=== PATIENT | male | born 1945 | race Caucasian/White ===

== ENCOUNTER 2016-11-08 11:39 | Inpatient (IN) ==
[2016-11-08 12:40] LABS: Basophils % 0.2 %; Hematocrit 30.2 % (37.5-50.1); Hemoglobin 9.1 g/dL (12.9-16.9); Immature Granulocytes % 3.8 % (0-4); Lymphocytes # 0.4 K/mcL (0.6-4.6); Lymphocytes % 3.3 %; Mean Corpuscular HGB Conc 30.1 g/dL (31.6-35.5); Mean Corpuscular Hemoglobin 30.4 pg (28.0-33.3); Mean Platelet Volume 11.5 fL (9.4-12.4); Monocytes # 0.6 K/mcL (0.0-1.3); Monocytes % 4.6 %; Neutrophils # 11.4 K/mcL (1.6-8.9); Platelet Count 120 K/mcL (140-400); Red Blood Count 2.99 M/mcL (4.19-5.50); Red Cell Distribution Width 16.2 % (11.5-14.5); Segmented Neutrophils % 88.1 %
[2016-11-08] MEDS ORDERED: Lidocaine -MPF 1% 2 ML VIAL ID PRN (12:41)
[2016-11-08 12:44] LABS: Prothrombin Time 11.2 Seconds (9.4-12.1)
[2016-11-08 12:47] LABS: Activated Partial Thrombo Time 25.4 Seconds (26.0-36.0)
[2016-11-08 12:52] LABS: Calcium 8.7 mg/dL (8.6-10.8)
[2016-11-08 13:02] LABS: Potassium 7.1 mEq/L (3.5-4.5)
[2016-11-08] MEDS ORDERED: Calcium Gluconate 1,000 MG in D5% in Water 100 ML IVPB ONE ×2 (13:02→14:31)
[2016-11-08] MEDS ORDERED: Sodium Bicarbonate 50 MEQ/50 ML VIAL IVP ONE ×2 (13:02→15:55)
[2016-11-08] MEDS ORDERED: Insulin Regular, Human 100 UNIT/ML SQ ONE (13:03)
[2016-11-08] MEDS ORDERED: Albuterol 2.5 MG/3 ML NEBULIZER IH ONE ×2 (13:03→14:30)
[2016-11-08] MEDS ORDERED: *HR* Dextrose 50 % in Water (Syg) 50 ML SYRINGE IVP ONE ×2 (13:04→22:05)
--- NOTE | 2016-11-08 13:26 | Emergency Department Note ---
Disposition Clinical Impression: Hyperkalemia, Hypercapnic respiratory failure, chronic Angioedema Qualifiers: Encounter type: initial encounter Qualified Code(s): T78.3XXA - Angioneurotic edema, initial encounter Disposition: Admitted As Inpatient Condition: Critical Time of Disposition: 18:28 General Adult HPI - General Chief complaint: ED Shortness of Breath/Dyspnea Stated complaint: Angioedema Time Seen by Provider: 11/08/16 11:59 Source: EMS Nursing Notes Reviewed: Yes Vital Signs Reviewed: Yes - History of Present Illness HPI Narrative: Patient sent from the [place] for new onset angioedema this morning. He is brought in emergently by EMS. He is on a nonrebreather at 15 L and satting 100%. He is arousable. He has periorbital edema as well as edema to his face and eyes. I do not appreciate any swelling to his tongue. His oropharynx is open. You can appreciate the posterior oropharynx. If there is any swelling in his minor. His mallenpati score is poor. Body habitus is poor. Pain Scale: 0 - Related Data Home Medications Medication Instructions Recorded Confirmed Alendronate Sodium [Fosamax] 70 mg PO QWEEK 11/08/16 11/08/16 Budesonide/Formoterol 160/4.5 2 puff IH BIDR 11/08/16 11/08/16 [Symbicort 160/4.5] Chlorhexidine Gluconate [Peridex] 15 ml MM BID 11/08/16 11/08/16 Ergocalciferol (VITAMIN D2) 50,000 unit PO TH 11/08/16 11/08/16 [Vitamin D2] Folic Acid 1 mg PO DAILY 11/08/16 11/08/16 Guaifenesin [Mucus Relief] 400 mg PO BID 11/08/16 11/08/16 Insulin Glargine [Lantus] 12 unit SQ 1200 11/08/16 11/08/16 Insulin Human Regular [HumuLIN R] 2 - 15 unit SQ PRN PRN 11/08/16 11/08/16 Ipratropium/Albuterol Neb [Duoneb] 3 ml IH Q2H PRN 11/08/16 11/08/16 Ipratropium/Albuterol Neb [Duoneb] 3 ml IH Q4HR 11/08/16 11/08/16 LevETIRAcetam [Keppra] 500 mg PO DAILY 11/08/16 11/08/16 Ranitidine HCl [Zantac] 150 mg PO DAILY 11/08/16 11/08/16 Simvastatin [Zocor] 40 mg PO HS 11/08/16 11/08/16 Theophylline Anhydrous [Jesus-24] 100 mg PO DAILY 11/08/16 11/08/16 amLODIPine [Norvasc] 5 mg PO DAILY 11/08/16 11/08/16 hydrALAZINE [HydrALAZINE] 12.5 mg PO QID PRN 11/08/16 11/08/16 hydrALAZINE [HydrALAZINE] 25 mg PO Q6HR 11/08/16 11/08/16 levETIRAcetam [Keppra] 250 mg PO HS 11/08/16 11/08/16 predniSONE [PredniSONE] See Taper PO TAPER 11/08/16 11/08/16 Allergies Allergy/AdvReac Type Severity Reaction Status Date / Time carvedilol Allergy See Verified 11/08/16 11:50 Comments Limitations: ROS unobtainable due to patients medical condition Past Medical History - Past Medical History Medical history: Reports: arthritis, CHF, CVA, dementia, diabetes, GERD Psychiatric history: Reports: other - Social History Smoking Status: Current every day smoker Smokeless Tobacco Status: No Alcohol use: Reports: none Drug use: Reports: none Physical Exam - General Limitations: altered mental status (Patient is arousable but pleasantly demented.) General appearance: alert, in distress (He has rales throughout but is protecting his airway. He does have edema about his face.) - Head Head exam: atraumatic - Eye Eye exam: Present: periorbital swelling (Significant), other (Perioral swelling that is significant. Facial swelling.) - ENT ENT exam: normal oropharynx (Oropharynx is without significant edema. There is no tongue swelling. There is mild to no swelling of the posterior oropharynx. I think that this is the patient's normal oropharynx size. His body habitus appears to have a large neck.), mucous membranes moist - Neck Neck exam: Present: normal inspection, full ROM. Absent: meningismus, lymphadenopathy - Chest Chest inspection: Present: normal inspection, symmetric chest wall rise. Absent : tenderness - Respiratory Respiratory exam: Present: other (Rales throughout). Absent: respiratory distress - Cardiovascular Cardiovascular exam: Present: regular rate, normal rhythm, normal heart sounds - Abdominal Exam Abdominal exam: Present: soft, other (Multiple areas of ecchymosis.). Absent: tenderness, distention, organomegaly - Extremities Exam Extremities exam: Present: normal inspection, full ROM. Absent: tenderness, pedal edema - Back Exam Back exam: Present: normal inspection - Neurological Exam Neurological exam: Present: alert - Skin Skin exam: Present: warm, dry, intact Course Course Narrative: Male patient brought from the [place] for angioedema. EMS brought him and he is on a nonrebreather satting 100% on 15 L. He does have some facial swelling however on inspection of his oropharynx there is some mild edema but does not appear occluded. I do not appreciate any swelling to his tongue. He does have swelling to his orbital area as well as bilateral facial region. His lips are swollen. He is moving air appropriately. There is no stridor. He does have rales bilaterally throughout his lung sounds. We have placed the patient on BiPAP. He tolerates this well. His oxygen saturation is 100% this time his mentation improved significantly. He is opening his eyes and looking around. We have had a difficult time starting an IV however we did get a power line placed. He Came with an IO in his left tibia. He was given epinephrine as well as Solu-Medrol prior to discharge from the [place]. Patient has a history of seizures as well as a craniotomy. He also has a history of dementia and a CVA. I am not sure what his normal baseline mental status is. He is ventricularly paced on the monitor at this time. His abdomen is soft with no masses noted on exam. Patient is maintaining his airway well on BiPAP. On reexamination he is alert to voice commands. He is looking around the room. He is able to answer yes or no questions. His chest x-ray is normal as is his soft tissue of neck. He is hyperkalemic. We have given patient calcium gluconate, insulin, D50, bicarbonate, albuterol. We will contact cardiology due to his increased troponin and nephrology due to his increased potassium. We will admit patient to the ICU. - Reevaluation(s) Reevaluation #1: His mentation is better. When questioned he is feeling better he shakes his head yes. He is speaking to the nurse. He is aware of his name where he is the month and year. The swelling has come down some from his face. He is hyperkalemic. We have ordered insulin glucose calcium gluconate was bicarbonate. We are also giving him an albuterol treatment. Respiratory states both of these ABGs were mixed. He was a hard stick for IVs as well as ABGs. We have spoke with nephrology while he is here as well as cardiology. Dr. Nieves states that she is on board with the patient and his hyperkalemia. It appears as if in his chart states that he was on carvedilol previously and this caused some hyperkalemia. He is not on this anymore. And he is still hyperkalemic. Patient was given Kayexalate rectally. Nephrology as well as cardiology is on board. We will admit the patient to the ICU. Time: 13:21 - Consultations Consultation #1: I spoke with Dr Russo. He is suggesting that we speak with nephrology. Time: 13:41 Consultation #2: I spoke with Dr. Nieves the concrete stone finishing supervisor. She is requesting a redraw of the potassium and to give the patient Kayexalate rectally. She states that she will see the patient in ICU. Time: 13:47 Consultation #3: I spoke with Dr Bear. He does not feel comfortable keeping the Pt here without ENT coverage. Time: 13:59 Additional Consultation(s): Dr Bear came down and assessed the Pt he is now agreeable to accepted the Pt to the hospital. After his further evaluation and a repeat blood gas, he is requesting the Pt to be intubated. Patient appears to be a difficult intubation especially due to the recent angioedema. I am concerned that if we introduce anything into his or her posterior oropharynx that he may swell again. His mallenpati score is 4. He has a large neck and small jaw. We have spoken with Dr. Lopez the anesthesiologist. He is agreeable to take the patient to the OR for a fiberoptic intubation. We have spoken with Dr. gomez to be on standby in case the patient needs to have a tracheostomy placed emergently. He is also agreeable to this. Patient is sent to the OR from the ER. He will then be admitted to the ICU. Vital Signs Temperature 97.6 F 11/08/16 11:40 Pulse Rate 84 11/08/16 11:40 Respiratory Rate 26 11/08/16 11:40 Blood Pressure 117/86 11/08/16 11:40 O2 Sat by Pulse Oximetry 99 11/08/16 11:40 Temperature 97.6 F 11/08/16 11:40 Pulse Rate 70 11/08/16 17:23 Respiratory Rate 28 11/08/16 18:18 Blood Pressure 163/77 11/08/16 18:18 O2 Sat by Pulse Oximetry 98 11/08/16 17:23 Oxygen Delivery Oxygen Delivery Bipap Medical Decision Making - Medical Records Medical records reviewed: Yes I reviewed the patient's medical records. - Lab Data Lab results reviewed: Yes I reviewed the patient's lab results. Result diagrams: 11/08/16 12:28 11/08/16 14:15 Lab Results 11/08/16 11/08/16 11/08/16 Range/Units 11:55 12:17 12:28 WBC 12.9 H (4.3-11.1) K/mcL RBC 2.99 L (4.19-5.50) M/mcL Hgb 9.1 L (12.9-16.9) g/dL Hct 30.2 L (37.5-50.1) % MCV 101.0 H (83.0-100.0) fL MCH 30.4 (28.0-33.3) pg MCHC 30.1 L (31.6-35.5) g/dL RDW 16.2 H (11.5-14.5) % Plt Count 120 L (140-400) K/mcL MPV 11.5 (9.4-12.4) fL Immature Gran % 3.8 (0-4) % Seg Neutrophils % 88.1 % Lymphocytes % 3.3 % Monocytes % 4.6 % Eosinophils % 0.0 % Basophils % 0.2 % Neutrophils # 11.4 H (1.6-8.9) K/mcL Lymphocytes # 0.4 L (0.6-4.6) K/mcL Monocytes # 0.6 (0.0-1.3) K/mcL Eosinophils # 0.0 (0.0-0.6) K/mcL Basophils # 0.0 (0.0-0.2) K/mcL PT (9.4-12.1) Seconds INR APTT (26.0-36.0) Seconds ABG pH (7.32-7.45) pH Units ABG pCO2 (35-45) mmHg ABG pO2 (85-104) mmHg ABG HCO3 (21-27) mEQ/L ABG Total CO2 (20-26) mEq/L ABG O2 Saturation (95-98) % ABG Base Excess (-2.0 to 3.0) mEq/L Blood Gas Modality Sodium (136-145) mEq/L Potassium (3.5-4.5) mEq/L Chloride (98-109) mEq/L Carbon Dioxide (19-29) mEq/L BUN (8-26) mg/dL Creatinine (0.72-1.25) mg/dL Est GFR ( Amer) (> 60) Est GFR (Non-Af Amer) (> 60) BUN/Creatinine Ratio (6-26) Glucose (70-99) mg/dL Calculated Osmolality (280-300) Lactic Acid (0.5-2.2) mmol/L Calcium (8.6-10.8) mg/dL Creatine Kinase (30-200) Units/L Troponin I (0-0.03) ng/mL B-Natriuretic Peptide (0-100) pg/mL Urine Color (Yellow) Urine Clarity (Clear) Urine pH (5.0-8.0) pH Units Ur Specific [place] (1.010-1.025) Urine Protein (Neg-Trace) mg/dL Urine Glucose (UA) (Normal) mg/dL Urine Ketones (Negative) mg/dL Urine Blood (Negative) Urine Nitrite (Negative) Urine Bilirubin (Negative) Urine Urobilinogen (Normal) mg/dL Ur Leukocyte Esterase (Negative) Urine Microscopic RBC (0-3) per hpf Urine Microscopic WBC (0-3) per hpf Ur Squamous Epith Cells (None-Few) per lpf Urine Bacteria (None-Few) per hpf Hyaline Casts (None-Few) per lpf Ur Culture Indicated? (NO) Specimen Rejected Contaminated Contaminated 11/08/16 11/08/16 11/08/16 Range/Units 12:28 12:28 12:28 WBC (4.3-11.1) K/mcL RBC (4.19-5.50) M/mcL Hgb (12.9-16.9) g/dL Hct (37.5-50.1) % MCV (83.0-100.0) fL MCH (28.0-33.3) pg MCHC (31.6-35.5) g/dL RDW (11.5-14.5) % Plt Count (140-400) K/mcL MPV (9.4-12.4) fL Immature Gran % (0-4) % Seg Neutrophils % % Lymphocytes % % Monocytes % % Eosinophils % % Basophils % % Neutrophils # (1.6-8.9) K/mcL Lymphocytes # (0.6-4.6) K/mcL Monocytes # (0.0-1.3) K/mcL Eosinophils # (0.0-0.6) K/mcL Basophils # (0.0-0.2) K/mcL PT (9.4-12.1) Seconds INR APTT (26.0-36.0) Seconds ABG pH (7.32-7.45) pH Units ABG pCO2 (35-45) mmHg ABG pO2 (85-104) mmHg ABG HCO3 (21-27) mEQ/L ABG Total CO2 (20-26) mEq/L ABG O2 Saturation (95-98) % ABG Base Excess (-2.0 to 3.0) mEq/L Blood Gas Modality Sodium 135 L (136-145) mEq/L Potassium 7.1 H* (3.5-4.5) mEq/L Chloride 101 (98-109) mEq/L Carbon Dioxide 25 (19-29) mEq/L BUN 82 H (8-26) mg/dL Creatinine 2.05 H (0.72-1.25) mg/dL Est GFR ( Amer) 39 L (> 60) Est GFR (Non-Af Amer) 32 L (> 60) BUN/Creatinine Ratio 40 H (6-26) Glucose 180 H (70-99) mg/dL Calculated Osmolality 309 H (280-300) Lactic Acid 0.9 (0.5-2.2) mmol/L Calcium 8.7 (8.6-10.8) mg/dL Creatine Kinase (30-200) Units/L Troponin I 0.38 H* (0-0.03) ng/mL B-Natriuretic Peptide (0-100) pg/mL Urine Color (Yellow) Urine Clarity (Clear) Urine pH (5.0-8.0) pH Units Ur Specific [place] (1.010-1.025) Urine Protein (Neg-Trace) mg/dL Urine Glucose (UA) (Normal) mg/dL Urine Ketones (Negative) mg/dL Urine Blood (Negative) Urine Nitrite (Negative) Urine Bilirubin (Negative) Urine Urobilinogen (Normal) mg/dL Ur Leukocyte Esterase (Negative) Urine Microscopic RBC (0-3) per hpf Urine Microscopic WBC (0-3) per hpf Ur Squamous Epith Cells (None-Few) per lpf Urine Bacteria (None-Few) per hpf Hyaline Casts (None-Few) per lpf Ur Culture Indicated? (NO) Specimen Rejected 11/08/16 11/08/16 11/08/16 Range/Units 12:28 12:28 14:15 WBC (4.3-11.1) K/mcL RBC (4.19-5.50) M/mcL Hgb (12.9-16.9) g/dL Hct (37.5-50.1) % MCV (83.0-100.0) fL MCH (28.0-33.3) pg MCHC (31.6-35.5) g/dL RDW (11.5-14.5) % Plt Count (140-400) K/mcL MPV (9.4-12.4) fL Immature Gran % (0-4) % Seg Neutrophils % % Lymphocytes % % Monocytes % % Eosinophils % % Basophils % % Neutrophils # (1.6-8.9) K/mcL Lymphocytes # (0.6-4.6) K/mcL Monocytes # (0.0-1.3) K/mcL Eosinophils # (0.0-0.6) K/mcL Basophils # (0.0-0.2) K/mcL PT 11.2 (9.4-12.1) Seconds INR 1.0 APTT 25.4 L (26.0-36.0) Seconds ABG pH (7.32-7.45) pH Units ABG pCO2 (35-45) mmHg ABG pO2 (85-104) mmHg ABG HCO3 (21-27) mEQ/L ABG Total CO2 (20-26) mEq/L ABG O2 Saturation (95-98) % ABG Base Excess (-2.0 to 3.0) mEq/L Blood Gas Modality Sodium (136-145) mEq/L Potassium (3.5-4.5) mEq/L Chloride (98-109) mEq/L Carbon Dioxide (19-29) mEq/L BUN (8-26) mg/dL Creatinine (0.72-1.25) mg/dL Est GFR ( Amer) (> 60) Est GFR (Non-Af Amer) (> 60) BUN/Creatinine Ratio (6-26) Glucose (70-99) mg/dL Calculated Osmolality (280-300) Lactic Acid 0.5 (0.5-2.2) mmol/L Calcium (8.6-10.8) mg/dL Creatine Kinase (30-200) Units/L Troponin I (0-0.03) ng/mL B-Natriuretic Peptide 1330 H (0-100) pg/mL Urine Color (Yellow) Urine Clarity (Clear) Urine pH (5.0-8.0) pH Units Ur Specific [place] (1.010-1.025) Urine Protein (Neg-Trace) mg/dL Urine Glucose (UA) (Normal) mg/dL Urine Ketones (Negative) mg/dL Urine Blood (Negative) Urine Nitrite (Negative) Urine Bilirubin (Negative) Urine Urobilinogen (Normal) mg/dL Ur Leukocyte Esterase (Negative) Urine Microscopic RBC (0-3) per hpf Urine Microscopic WBC (0-3) per hpf Ur Squamous Epith Cells (None-Few) per lpf Urine Bacteria (None-Few) per hpf Hyaline Casts (None-Few) per lpf Ur Culture Indicated? (NO) Specimen Rejected 11/08/16 11/08/16 11/08/16 Range/Units 14:15 15:45 16:22 WBC (4.3-11.1) K/mcL RBC (4.19-5.50) M/mcL Hgb (12.9-16.9) g/dL Hct (37.5-50.1) % MCV (83.0-100.0) fL MCH (28.0-33.3) pg MCHC (31.6-35.5) g/dL RDW (11.5-14.5) % Plt Count (140-400) K/mcL MPV (9.4-12.4) fL Immature Gran % (0-4) % Seg Neutrophils % % Lymphocytes % % Monocytes % % Eosinophils % % Basophils % % Neutrophils # (1.6-8.9) K/mcL Lymphocytes # (0.6-4.6) K/mcL Monocytes # (0.0-1.3) K/mcL Eosinophils # (0.0-0.6) K/mcL Basophils # (0.0-0.2) K/mcL PT (9.4-12.1) Seconds INR APTT (26.0-36.0) Seconds ABG pH 7.14 L* (7.32-7.45) pH Units ABG pCO2 96 H* (35-45) mmHg ABG pO2 74 L (85-104) mmHg ABG HCO3 32.7 H (21-27) mEQ/L ABG Total CO2 35.6 H (20-26) mEq/L ABG O2 Saturation 89 L (95-98) % ABG Base Excess 1.9 (-2.0 to 3.0) mEq/L Blood Gas Modality OXYMASK Sodium (136-145) mEq/L Potassium 7.5 H* (3.5-4.5) mEq/L Chloride (98-109) mEq/L Carbon Dioxide (19-29) mEq/L BUN (8-26) mg/dL Creatinine (0.72-1.25) mg/dL Est GFR ( Amer) (> 60) Est GFR (Non-Af Amer) (> 60) BUN/Creatinine Ratio (6-26) Glucose (70-99) mg/dL Calculated Osmolality (280-300) Lactic Acid (0.5-2.2) mmol/L Calcium (8.6-10.8) mg/dL Creatine Kinase 63 (30-200) Units/L Troponin I (0-0.03) ng/mL B-Natriuretic Peptide (0-100) pg/mL Urine Color Yellow (Yellow) Urine Clarity Cloudy A (Clear) Urine pH 5.0 (5.0-8.0) pH Units Ur Specific [place] 1.018 (1.010-1.025) Urine Protein >=300 H (Neg-Trace) mg/dL Urine Glucose (UA) 250 H (Normal) mg/dL Urine Ketones Negative (Negative) mg/dL Urine Blood Negative (Negative) Urine Nitrite Negative (Negative) Urine Bilirubin Negative (Negative) Urine Urobilinogen Normal (Normal) mg/dL Ur Leukocyte Esterase Negative (Negative) Urine Microscopic RBC 0-3 (0-3) per hpf Urine Microscopic WBC 0-3 (0-3) per hpf Ur Squamous Epith Cells Many H (None-Few) per lpf Urine Bacteria None Seen (None-Few) per hpf Hyaline Casts Few (None-Few) per lpf Ur Culture Indicated? NO (NO) Specimen Rejected - Radiology Data Radiology results reviewed: Yes I reviewed the patient's radiology results. Chest X-Ray 11/08/16 11:59 IMPRESSION: Cardiomegaly with no acute process demonstrated D/ / Will Campbell MD / Will Campbell MD Interpreting Provider: Will Campbell MD Soft Tissue Neck X-Ray 11/08/16 12:21 IMPRESSION: Limited study suggesting possible subglottic narrowing. CT would demonstrate the cervical airway to better effect D/ / Will Campbell MD / Will Campbell MD Interpreting Provider: Will Campbell MD Head CT 11/08/16 15:44 IMPRESSION: No acute intracranial abnormality. Right temporoparietal craniotomy and right temporal lobe encephalomalacia are noted. D/ / 11/08/2016 18:01:54 Arabella Petersen MD / [facility] Interpreting Provider: Arabella Petersen MD - EKG Data EKG #1 EKG attestation: Yes I reviewed and interpreted this EKG. EKG results narrative: Ventricularly paced rhythm at a rate of 59. CT interval is 180. QRS duration is 188. QT is 475. QTC is 475. Previous EKG in October 2013 was not ventricularly paced. Attestation Statement - Attestation Attestation: I, Elian Salazar, examined this patient and my medical decision-making was reviewed with the REVIEW ASSISTANT/PA/Advanced Practice Nurse/Resident Physician. I agree with the documented findings, disposition and treatment plan as described except to the extent set forth below. 71-year-old male sent in from the [place] with concerns of angioedema and unresponsiveness. [place] initially states that the patient had a O2 saturation of 34% prior to be placed on CPAP which he then smitha to 100% after a period of time. Patient was initially therefore hypercarbic respiratory failure. On his initial evaluation in the emergency department today he was somnolent although he would open eyes to painful stimulation. Patient was given EpiPen and Solu- Medrol at the [place] and EMS states his facial edema which included his lips and eyes but did not involve the tongue or posterior pharynx had improved significantly during their transit to the emergency department. Patient initially had a pH of 7.13 at the [place]. Patient was not intubated immediately upon arrival because he had improvement of his angioedema and was satting well on BiPAP. Patient was able to wake and look around the room on his arrival to the emergency department. On laboratory testing the patient had a potassium of 7.0, he was given albuterol, bicarbonate, insulin however repeat potassium showed a level of 7.5. Dr. Nieves was contacted regarding the patient's case and presentation who agreed with the plan for possible dialysis while in the hospital. She recommended starting Kayexalate in the emergency department. Dr. Ely, the sales representative publications, initially refused the admission secondary to lack of ENT coverage however after evaluation in the emergency department agreed to take the patient to the ICU. Patient's repeat ABG did not show significant improvement despite his time on BiPAP. Had service requested the patient be intubated prior to admission to the ICU. I spoke with the anesthesiologist, Dr. Negrete who recommended the patient be debated in the OR with surgery on standby for possible surgical airway. Patient agrees that he is a full code. Patient is hemodynamically stable prior to departure of the emergency department. Patient was transferred to the OR for further care and evaluation and will be transferred to the ICU after intubation. The high probability of a clinically significant, sudden or life threatening deterioration of the respiratory and cardiovascular system(s) required my full and direct attention, intervention and personal management. The aggregate critical care time was 120 minutes. This time is in addition to time spent performing reported procedures but includes the following: x Data Review and interpretation x Patient assessment and monitoring of vital signs x Documentation x Medication orders and management
[2016-11-08 14:28] LABS: Potassium 7.5 mEq/L (3.5-4.5)
[2016-11-08] MEDS ORDERED: Furosemide 40 MG/4 ML VIAL IVP ONE (15:44)
[2016-11-08 15:48] LABS: ABG Base Excess 1.9 mEq/L (-2.0 to 3.0); ABG HCO3 32.7 mEQ/L (21-27); ABG Oxygen Saturation 89 % (95-98); ABG PO2 74 mmHg (85-104); ABG TCO2 35.6 mEq/L (20-26)
[2016-11-08 15:50] LABS: ABG PCO2 96 mmHg (35-45); ABG PH 7.14 pH Units (7.32-7.45)
[2016-11-08] MEDS: Sodium Bicarbonate 50 MEQ/50 ML VIAL IVP ONE ×2 (16:10→17:00)
--- NOTE | 2016-11-08 16:20 | Pulmonology History & Physical ---
<Ellen Cook - Last Filed: 11/08/16 17:29> Date of Encounter: 11/08/16 Time of Encounter: 16:08 Assessment and Plan (1) Angioedema Current visit: Yes Status: Acute Neuro/psych: Arousable Pulm: Patient is a chronic CO2 retainer. ABG shows hypercarbic respiratory acidosis. Intubated and on mechanical ventilation. Cardio: Elevated troponin. Cardiology on board. FEN-GI: --GI prophylaxis: Protonix --Hyperkalemia: Patient was given calcium gluconate, insulin, D50, bicarbonate, albuterol, and rectal Kayexalate in the ER. --Currently nothing by mouth due to intubation. Patient with history of dysphasia. Will be placed on a dysphagia diet (i.e. soft chopped solids and thin liquids) when appropriate. Renal: Suspect HENRY on CKD. [place] documents eGFR < 45. Nephrology on board due to hyperkalemia. ID: Patient meets SIRS criteria due to tachypnea and neutrophilic leukocytosis. Blood cultures and urine cultures obtained. Heme/Onc: --Patient with anemia and thrombocytopenia. Continue to monitor. --DVT prophylaxis with SQ heparin Endocrine: Diabetes, sliding scale insulin Integ/MSK: ICU skin care protocol Qualifiers: Encounter type: initial encounter Qualified Code(s): T78.3XXA - Angioneurotic edema, initial encounter (2) Hyperkalemia Current visit: Yes Status: Acute (3) SIRS (systemic inflammatory response syndrome) Current visit: Yes Status: Acute (4) Acute kidney injury superimposed on CKD Current visit: Yes Status: Suspected (5) Hypercapnic respiratory failure, chronic Current visit: Yes Status: Chronic (6) CHF (congestive heart failure) Current visit: Yes Status: Chronic Qualifiers: Congestive heart failure type: unspecified congestive heart failure type Congestive heart failure chronicity: unspecified congestive heart failure chronicity Qualified Code(s): I50.9 - Heart failure, unspecified (7) COPD (chronic obstructive pulmonary disease) Current visit: Yes Status: Chronic Qualifiers: COPD type: unspecified COPD Qualified Code(s): J44.9 - Chronic obstructive pulmonary disease, unspecified (8) Diabetes Current visit: Yes Status: Chronic Qualifiers: Diabetes mellitus type: type 2 Diabetes mellitus complication status: with unspecified complications Diabetes mellitus longterm insulin use: with longterm use Qualified Code(s): E11.8 - Type 2 diabetes mellitus with unspecified complications; Z79.4 - watermaster (current) use of insulin (9) History of traumatic brain injury Current visit: Yes Status: Chronic (10) History of CVA (cerebrovascular accident) Current visit: Yes Status: Chronic History of Present Illness Chief complaint: Angioedema HPI: Mr. Barron is a 71 year old male past medical history type 2 diabetes, apnea, congestive heart failure, CVA, dementia associated with alcoholism, COPD, and tobacco abuse admitted for hyperkalemia and hypercarbic respiratory failure. Patient was transferred [place] due to angioedema. He had swelling of his lips and eyes. This has resolved. At no point in time did he have swelling of his tongue. He maintained his airway throughout. Past Med Surg Social Fam HX - Past Medical History Medical history: arthritis, CHF, CVA, dementia, diabetes, GERD Psychiatric history: other - Social History Smoking Status: Current every day smoker Smokeless Tobacco Status: No Alcohol use: none Drug use: none Medications and Allergies Alendronate Sodium [Fosamax] 70 mg PO QWEEK 11/08/16 [History] Budesonide/Formoterol 160/4.5 [Symbicort 160/4.5] 2 puff IH BIDR 11/08/16 [ History] Chlorhexidine Gluconate [Peridex] 15 ml MM BID 11/08/16 [History] Ergocalciferol (VITAMIN D2) [Vitamin D2] 50,000 unit PO TH 11/08/16 [History] Folic Acid 1 mg PO DAILY 11/08/16 [History] Guaifenesin [Mucus Relief] 400 mg PO BID 11/08/16 [History] Insulin Glargine [Lantus] 12 unit SQ 1200 11/08/16 [History] Insulin Human Regular [HumuLIN R] 2 - 15 unit SQ PRN PRN 11/08/16 [History] Ipratropium/Albuterol Neb [Duoneb] 3 ml IH Q2H PRN 11/08/16 [History] Ipratropium/Albuterol Neb [Duoneb] 3 ml IH Q4HR 11/08/16 [History] LevETIRAcetam [Keppra] 500 mg PO DAILY 11/08/16 [History] Ranitidine HCl [Zantac] 150 mg PO DAILY 11/08/16 [History] Simvastatin [Zocor] 40 mg PO HS 11/08/16 [History] Theophylline Anhydrous [Jesus-24] 100 mg PO DAILY 11/08/16 [History] amLODIPine [Norvasc] 5 mg PO DAILY 11/08/16 [History] hydrALAZINE [HydrALAZINE] 12.5 mg PO QID PRN 11/08/16 [History] hydrALAZINE [HydrALAZINE] 25 mg PO Q6HR 11/08/16 [History] levETIRAcetam [Keppra] 250 mg PO HS 11/08/16 [History] predniSONE [PredniSONE] See Taper PO TAPER 11/08/16 [History] Allergies carvedilol Allergy (Verified 11/08/16 11:50) See Comments unknown reaction, [facility]. ROS unobtainable: due to mental status All Systems: A 10-system review of systems was performed and is negative for pertinent findings except as documented above in the HPI. Physical Examination General appearance: no acute distress, other (Patient asleep, arousable) Eyes: injected ENT: oropharynx moist Neck: supple Effort: normal Inspection: normal Auscultation: bilateral: rales Cardiovascular: regular rate and rhythm Gastrointestinal: normoactive bowel sounds, soft, non-tender Extremities: other (Evidence of peripheral vascular disease, onychomycosis, stasis dermatitis) other (Sluggishly arousable, does not answer clearly when asked questions) Results - Laboratory Findings CBC and BMP: 11/08/16 12:28 11/08/16 14:15 ABG ABG pH 7.14 pH Units (7.32-7.45) L* 11/08/16 15:45 ABG pCO2 96 mmHg (35-45) H* 11/08/16 15:45 ABG pO2 74 mmHg (85-104) L 11/08/16 15:45 ABG O2 Saturation 89 % (95-98) L 11/08/16 15:45 PT/INR, D-dimer PT 11.2 Seconds (9.4-12.1) 11/08/16 12:28 Abnormal lab findings: Abnormal lab results WBC 12.9 K/mcL (4.3-11.1) H 11/08/16 12:28 RBC 2.99 M/mcL (4.19-5.50) L 11/08/16 12:28 Hgb 9.1 g/dL (12.9-16.9) L 11/08/16 12:28 Hct 30.2 % (37.5-50.1) L 11/08/16 12:28 MCV 101.0 fL (83.0-100.0) H 11/08/16 12:28 MCHC 30.1 g/dL (31.6-35.5) L 11/08/16 12:28 RDW 16.2 % (11.5-14.5) H 11/08/16 12:28 Plt Count 120 K/mcL (140-400) L 11/08/16 12:28 Neutrophils # 11.4 K/mcL (1.6-8.9) H 11/08/16 12:28 Lymphocytes # 0.4 K/mcL (0.6-4.6) L 11/08/16 12:28 APTT 25.4 Seconds (26.0-36.0) L 11/08/16 12:28 ABG pH 7.14 pH Units (7.32-7.45) L* 11/08/16 15:45 ABG pCO2 96 mmHg (35-45) H* 11/08/16 15:45 ABG pO2 74 mmHg (85-104) L 11/08/16 15:45 ABG HCO3 32.7 mEQ/L (21-27) H 11/08/16 15:45 ABG Total CO2 35.6 mEq/L (20-26) H 11/08/16 15:45 ABG O2 Saturation 89 % (95-98) L 11/08/16 15:45 Sodium 135 mEq/L (136-145) L 11/08/16 12:28 Potassium 7.5 mEq/L (3.5-4.5) H* 11/08/16 14:15 BUN 82 mg/dL (8-26) H 11/08/16 12:28 Creatinine 2.05 mg/dL (0.72-1.25) H 11/08/16 12:28 Est GFR ( Amer) 39 (> 60) L 11/08/16 12:28 Est GFR (Non-Af Amer) 32 (> 60) L 11/08/16 12:28 BUN/Creatinine Ratio 40 (6-26) H 11/08/16 12:28 Glucose 180 mg/dL (70-99) H 11/08/16 12:28 Calculated Osmolality 309 (280-300) H 11/08/16 12:28 Troponin I 0.38 ng/mL (0-0.03) H* 11/08/16 12:28 B-Natriuretic Peptide 1330 pg/mL (0-100) H 11/08/16 12:28 <Scotty Bear W - Last Filed: 11/08/16 17:44> Date of Encounter: 11/08/16 History of Present Illness HPI: Mr. Barron is a 71 year old male All Systems: A 10-system review of systems was performed and is negative for pertinent findings except as documented above in the HPI. Physical Examination Vital Signs: Vital Signs, Last 4 Hours Pulse Resp BP Pulse Ox 11/08/16 17:23 70 28 163/77 98 Results - Laboratory Findings CBC and BMP: 11/08/16 12:28 11/08/16 14:15 ABG ABG pH 7.14 pH Units (7.32-7.45) L* 11/08/16 15:45 ABG pCO2 96 mmHg (35-45) H* 11/08/16 15:45 ABG pO2 74 mmHg (85-104) L 11/08/16 15:45 ABG O2 Saturation 89 % (95-98) L 11/08/16 15:45 PT/INR, D-dimer PT 11.2 Seconds (9.4-12.1) 11/08/16 12:28 Abnormal lab findings: Abnormal lab results WBC 12.9 K/mcL (4.3-11.1) H 11/08/16 12:28 RBC 2.99 M/mcL (4.19-5.50) L 11/08/16 12:28 Hgb 9.1 g/dL (12.9-16.9) L 11/08/16 12:28 Hct 30.2 % (37.5-50.1) L 11/08/16 12:28 MCV 101.0 fL (83.0-100.0) H 11/08/16 12:28 MCHC 30.1 g/dL (31.6-35.5) L 11/08/16 12:28 RDW 16.2 % (11.5-14.5) H 11/08/16 12:28 Plt Count 120 K/mcL (140-400) L 11/08/16 12:28 Neutrophils # 11.4 K/mcL (1.6-8.9) H 11/08/16 12:28 Lymphocytes # 0.4 K/mcL (0.6-4.6) L 11/08/16 12:28 APTT 25.4 Seconds (26.0-36.0) L 11/08/16 12:28 ABG pH 7.14 pH Units (7.32-7.45) L* 11/08/16 15:45 ABG pCO2 96 mmHg (35-45) H* 11/08/16 15:45 ABG pO2 74 mmHg (85-104) L 11/08/16 15:45 ABG HCO3 32.7 mEQ/L (21-27) H 11/08/16 15:45 ABG Total CO2 35.6 mEq/L (20-26) H 11/08/16 15:45 ABG O2 Saturation 89 % (95-98) L 11/08/16 15:45 Sodium 135 mEq/L (136-145) L 11/08/16 12:28 Potassium 7.5 mEq/L (3.5-4.5) H* 11/08/16 14:15 BUN 82 mg/dL (8-26) H 11/08/16 12:28 Creatinine 2.05 mg/dL (0.72-1.25) H 11/08/16 12:28 Est GFR ( Amer) 39 (> 60) L 11/08/16 12:28 Est GFR (Non-Af Amer) 32 (> 60) L 11/08/16 12:28 BUN/Creatinine Ratio 40 (6-26) H 11/08/16 12:28 Glucose 180 mg/dL (70-99) H 11/08/16 12:28 Calculated Osmolality 309 (280-300) H 11/08/16 12:28 Troponin I 0.38 ng/mL (0-0.03) H* 11/08/16 12:28 B-Natriuretic Peptide 1330 pg/mL (0-100) H 11/08/16 12:28 Urine Clarity Cloudy (Clear) A 11/08/16 16:22 Urine Protein >=300 mg/dL (Neg-Trace) H 11/08/16 16:22 Urine Glucose (UA) 250 mg/dL (Normal) H 11/08/16 16:22 Ur Squamous Epith Cells Many per lpf (None-Few) H 11/08/16 16:22 - Attending Attestation I examined this patient and my medical decision-making was reviewed with the CHIN [employer]AP SEWER/PA/Advanced Practice Nurse/Resident Physician. I agree with the documented findings, disposition and treatment plan as described except to the extent set forth below. I spent 35min of Critical Care time with this patient. It involved decision making of high complexity to assess, manipulate, and support vital organ system failure and/or to prevent further life threatening deterioration of the patient' s condition. The time involved in the performance of separately reportable procedures was not counted toward critical care time. Patient seen and examined at bedside Labs, radiology, chart personally reviewed. All lines examined without evidence of infection. Neuropsych: Encephalopathic likely secondary to metabolic derangement medication effect respiratory acidosis. Will attempt to correct underlying problem no focal neurological deficit on exam head CT pending. History of traumatic brain injury Pulm: Acute on chronic hypoxic hypercarbic respiratory failure possibly secondary to volume overload from CHF no clear evidence of pneumonia on chest x- ray angioedema does not appear to have tongue swelling posterior pharynx was not assessed though recommend intubation given metabolic derangements and acute respiratory acidosis plan for anesthesia team to proceed with fiberoptic intubation in the operating room. We will employ low tidal volume ventilatory strategy once intubated. Cards: Slight troponin elevation in the context of underlying CHF and hyperkalemia cardiology following no acute intervention plan refill at this is most likely either demand or related to hyperkalemia/kidney injury. Patient has a paced rhythm FEN-GI: Nothing by mouth for now no acute GI process. PPI Prophylaxis once intubated Renal: Suspected acute kidney injury attaining outside restaurant records from the [place] to see what baseline creatinine function is severely hyperkalemic nephrology following she potassium cocktail given possible need for dialysis. Continue telemetry monitoring ID: Leukocytosis possible underlying sepsis high-risk for aspiration. Recommend broad-spectrum antimicrobials and starting empiric antimicrobials for healthcare associated organisms Heme/Onc: DVT prophylaxis given Endo: History of diabetes blood glucose will be monitored start with sliding scale insulin while nothing by mouth Integ/MSK: Skin care per routine ICU care Allergy/Immune: Presenting with angioedema although no obvious lip swelling or tongue swelling posterior pharynx is after mentioned has not been evaluated likely secondary to medication effect history of LLUVIA inhibitor use we are still trying to sort out exactly when last dose of medication was taken to we will avoid LLUVIA inhibitor at present no other evidence of allergic process continue steroid H1/H2 matilda at present CODE: Full code
[2016-11-08 16:31] LABS: Bilirubin,Urine Negative (Negative); Blood,Urine Negative (Negative); Clarity,Urine Cloudy (Clear); Color,Urine Yellow (Yellow); Glucose,Urine (UA) 250 mg/dL (Normal); Ketones,Urine Negative (Negative); Leukocyte Esterase,Urine Negative (Negative); Nitrite,Urine Negative (Negative); Protein,Urine >=300 mg/dL (Neg-Trace); Specific Gravity,Urine 1.018 (1.010-1.025); Urobilinogen,Urine Normal (Normal)
[2016-11-08 16:33] LABS: Bacteria,Urine None Seen per hpf (None-Few); RBC,Urine 0-3 per hpf (0-3); Squamous Epithelial Cell,Urine Many per lpf (None-Few); WBC,Urine 0-3 per hpf (0-3)
[2016-11-08 16:47] LABS: Hyaline Casts,Urine Few per lpf (None-Few)
[2016-11-08] MEDS ORDERED: *HR* LORazepam 2 MG/ML VIAL IVP PRN (17:05)
[2016-11-08] MEDS ORDERED: Naloxone 0.4 MG/ML INJ IVP PRN (17:05)
--- NOTE | 2016-11-08 17:13 | Nephrology Consult Note ---
Date of Encounter: 11/08/16 Time of Encounter: 17:00 Assessment and Plan (1) Hyperkalemia Current Visit: Yes Status: Acute Hyperkalemia out of proportion to HENRY in a patient with history of recurrent hyperkalemia Will dose with another 60grams of kayexalate once intubated and watch for BM UOP increased after lasix iv which is promising, will repeat potassium soon If no improvement, will need CERTIFICATION AND SELECTION SPECIALIST as a last resort (2) Angioedema Current Visit: Yes Status: Resolved Intubation today in the OR planned Qualifiers: Encounter type: initial encounter Qualified Code(s): T78.3XXA - Angioneurotic edema, initial encounter (3) CHF (congestive heart failure) Current Visit: Yes Status: Chronic Agree with lasix dose already given with great UOP Qualifiers: Congestive heart failure type: unspecified congestive heart failure type Congestive heart failure chronicity: unspecified congestive heart failure chronicity Qualified Code(s): I50.9 - Heart failure, unspecified (4) Acute kidney injury superimposed on CKD Current Visit: Yes Status: Suspected Elevated SCr in the setting of angioedema, unclear if cardiac issues Baseline unclear but GFR noted at 45 as of october 31 No acute indication for CERTIFICATION AND SELECTION SPECIALIST at this time Avoid nephrotoxins if possible History of Present Illness - Reason for Consult Consult date: 11/08/16 Acute Kidney Injury, Chronic Kidney Disease, hyperkalemia Requesting physician: Kym Watt - History of Present Illness 71 y o male with PMH of DM, COPD, dementia and CH[facility] diagnosed with angioedema etiology unclear and was noted with elevated potassium at 7.1. Per records, pt does have a history of hyperkalemia while on beta matilda now discontinued. No potassium supplements, ACEi or ARB noted on records at present but was on lisinopril and aldactone back in august discontinued for hyperkalemia. SCr noted at 1.61, GFR 45 as of october 31 and now 2.05, GFR 32 today. Pt seen and examined in the ED curretly on biPAP and resting comfortably with intubation planned. He received calcium gluconate, insulin, D5 and bicarbonate with 30g rectal kayexalate given along with lasix Past Med Surg Social Fam HX - Past Medical History Medical history: arthritis, CHF, CVA, dementia, diabetes, GERD Psychiatric history: other - Social History Smoking Status: Current every day smoker Smokeless Tobacco Status: No Alcohol use: none Drug use: none Medications and Allergies Alendronate Sodium [Fosamax] 70 mg PO QWEEK 11/08/16 [History] Budesonide/Formoterol 160/4.5 [Symbicort 160/4.5] 2 puff IH BIDR 11/08/16 [ History] Chlorhexidine Gluconate [Peridex] 15 ml MM BID 11/08/16 [History] Ergocalciferol (VITAMIN D2) [Vitamin D2] 50,000 unit PO TH 11/08/16 [History] Folic Acid 1 mg PO DAILY 11/08/16 [History] Guaifenesin [Mucus Relief] 400 mg PO BID 11/08/16 [History] Insulin Glargine [Lantus] 12 unit SQ 1200 11/08/16 [History] Insulin Human Regular [HumuLIN R] 2 - 15 unit SQ PRN PRN 11/08/16 [History] Ipratropium/Albuterol Neb [Duoneb] 3 ml IH Q2H PRN 11/08/16 [History] Ipratropium/Albuterol Neb [Duoneb] 3 ml IH Q4HR 11/08/16 [History] LevETIRAcetam [Keppra] 500 mg PO DAILY 11/08/16 [History] Ranitidine HCl [Zantac] 150 mg PO DAILY 11/08/16 [History] Simvastatin [Zocor] 40 mg PO HS 11/08/16 [History] Theophylline Anhydrous [Jesus-24] 100 mg PO DAILY 11/08/16 [History] amLODIPine [Norvasc] 5 mg PO DAILY 11/08/16 [History] hydrALAZINE [HydrALAZINE] 12.5 mg PO QID PRN 11/08/16 [History] hydrALAZINE [HydrALAZINE] 25 mg PO Q6HR 11/08/16 [History] levETIRAcetam [Keppra] 250 mg PO HS 11/08/16 [History] predniSONE [PredniSONE] See Taper PO TAPER 11/08/16 [History] Allergies carvedilol Allergy (Verified 11/08/16 11:50) See Comments unknown reaction, [facility] Review of Systems All Systems: reviewed and no additional remarkable complaints except as stated ( 10 systems reviewed) Exam - Vital Signs Vital signs: Initial Vital Signs Temp Pulse Resp BP Pulse Ox 97.6 F 84 26 117/86 99 11/08/16 11:40 11/08/16 11:40 11/08/16 11:40 11/08/16 11:40 11/08/16 11:40 Vital Signs - Last 8 Hours Pulse Resp BP Pulse Ox 11/08/16 16:20 67 20 163/79 96 11/08/16 16:13 63 26 166/79 97 Intake and Output 11/08/16 11/08/16 11/08/16 07:59 15:59 23:59 Intake Total 110 / 110 Balance 110 / 110 Intake: IV Fluids 110 / 110 Calcium Gluconate 1,000 110 / 110 MG In Dextrose 5% 100 ML @ 220 mls/hr IVPB ONCE ONE Rx#:[id number] - General Appearance General appearance: moderate distress (on biPAP), chronically ill EENT: ATNC Neck: no JVD, supple Respiratory: course breath sounds Cardiology: edema (trace LE edema bilat), normal S1, normal S2 Gastrointestinal: no tenderness, no guarding, obese Integumentary: warm and dry, ecchymotic (UE bilat) Additional Comments: resting but arousable Musculoskeletal: no deformities Psychiatric: cooperative Results - Lab Results 11/09/16 05:15 11/09/16 05:15 Most recent lab results ABG pH 7.14 pH Units (7.32-7.45) L* 11/08/16 15:45 ABG pCO2 96 mmHg (35-45) H* 11/08/16 15:45 ABG pO2 74 mmHg (85-104) L 11/08/16 15:45 ABG HCO3 32.7 mEQ/L (21-27) H 11/08/16 15:45 ABG O2 Saturation 89 % (95-98) L 11/08/16 15:45 Calcium 8.7 mg/dL (8.6-10.8) 11/08/16 12:28 Consult Discharge Plan - Plan [facility]errals: [facility] [Primary Care Provider] -
[2016-11-08] MEDS ORDERED: Oxymetazoline Nasal SPRAY BOTTLE NS ONE (17:34)
--- NOTE | 2016-11-08 17:37 | Anesthesia Evaluation PreOp ---
Date of Encounter: 11/08/16 Time of Encounter: 17:37 - Past History Planned Operation: Emergency intubation Cardiac History: CHF Pulmonary History: Smoker, COPD, Other (Hypercapnic Respiratory failure) SHEAR HELPER History: CVA, Other (Hx traumatic brain injury, Dementia) Other Medical History: Renal (CRD), Diabetes Type II, GERD, Other (Angioedema, Hyperkalemia) Alcohol Use: none Drug use: none Medications and Allergies Alendronate Sodium [Fosamax] 70 mg PO QWEEK 11/08/16 [History] Budesonide/Formoterol 160/4.5 [Symbicort 160/4.5] 2 puff IH BIDR 11/08/16 [ History] Chlorhexidine Gluconate [Peridex] 15 ml MM BID 11/08/16 [History] Ergocalciferol (VITAMIN D2) [Vitamin D2] 50,000 unit PO TH 11/08/16 [History] Folic Acid 1 mg PO DAILY 11/08/16 [History] Guaifenesin [Mucus Relief] 400 mg PO BID 11/08/16 [History] Insulin Glargine [Lantus] 12 unit SQ 1200 11/08/16 [History] Insulin Human Regular [HumuLIN R] 2 - 15 unit SQ PRN PRN 11/08/16 [History] Ipratropium/Albuterol Neb [Duoneb] 3 ml IH Q2H PRN 11/08/16 [History] Ipratropium/Albuterol Neb [Duoneb] 3 ml IH Q4HR 11/08/16 [History] LevETIRAcetam [Keppra] 500 mg PO DAILY 11/08/16 [History] Ranitidine HCl [Zantac] 150 mg PO DAILY 11/08/16 [History] Simvastatin [Zocor] 40 mg PO HS 11/08/16 [History] Theophylline Anhydrous [Jesus-24] 100 mg PO DAILY 11/08/16 [History] amLODIPine [Norvasc] 5 mg PO DAILY 11/08/16 [History] hydrALAZINE [HydrALAZINE] 12.5 mg PO QID PRN 11/08/16 [History] hydrALAZINE [HydrALAZINE] 25 mg PO Q6HR 11/08/16 [History] levETIRAcetam [Keppra] 250 mg PO HS 11/08/16 [History] predniSONE [PredniSONE] See Taper PO TAPER 11/08/16 [History] Allergies carvedilol Allergy (Verified 11/08/16 11:50) See Comments unknown reaction, obtained from [facility] chart. - Meds/Allergy Pre-op Review Medications Reviewed: Yes Allergies Reviewed: Yes Beta Blockers on Current Med List: No Anesthesia Results - Labs 11/08/16 12:28 11/08/16 14:15 Anesthesia Exam O2 Sat Height 1.78 m Weight 104.326 kg O2 Sat by Pulse Oximetry 98 O2 Sat by Pulse Oximetry 96 O2 Sat by Pulse Oximetry 97 O2 Sat by Pulse Oximetry 97 O2 Sat by Pulse Oximetry 99 O2 Sat by Pulse Oximetry 95 O2 Sat by Pulse Oximetry 90 O2 Sat by Pulse Oximetry 99 O2 Sat by Pulse Oximetry 100 O2 Sat by Pulse Oximetry 100 O2 Sat by Pulse Oximetry 100 O2 Sat by Pulse Oximetry 100 O2 Sat by Pulse Oximetry 100 O2 Sat by Pulse Oximetry 99 Vital Signs Temp Pulse Resp BP Pulse Ox 97.6 F 84 26 117/86 99 11/08/16 11:40 11/08/16 11:40 11/08/16 11:40 11/08/16 11:40 11/08/16 11:40 Height: 5'10'' Weight: 230# NPO (# of Hours): > 8 hrs Pain Scale: 0 - HEENT Pupil (Motor): Pupils equal, EOMI Mallampati: III Teeth: Missing Denture Type: Upper: Complete Oral Opening: Greater than 3 - SHEAR HELPER LOC: Oriented SHEAR HELPER Motor: Normal RUE, Normal LUE, Normal RLE, Normal LLE, Normal Face SHEAR HELPER Sensory: Normal: RUE, LUE, RLE, LLE, Face - Cardiac Rhythm: Regular Murmur: None JVD: No Carotid Bruit: No - Pulmonary Breath Sounds: bilateral Clear Respiratory Effort: Symmetrical Anesthesia Assess/Plan ASA Score: 4 Modified [place] Scale for Level of Consciousness: Cooperative, oriented, and tranquil Anesthetic Plan: MAC Autologous Blood: Yes Monitoring Plan: Standard Monitors Recovery Plan: ICU
[2016-11-08] MEDS ORDERED: Lacri-Lube 3.5 GM TUBE BOTH EYES PRN (17:40)
[2016-11-08] MEDS ORDERED: Famotidine 20 MG/2 ML VIAL IVP ONE (17:46)
[2016-11-08] MEDS ORDERED: Ipratropium/Albuterol Neb 3 ML IH PRN (17:46)
[2016-11-08] MEDS ORDERED: Vancomycin 1,500 MG in D5% in Water 250 ML IVPB SCH (18:00)
[2016-11-08] MEDS ORDERED: Ketamine *HR* 500 MG/10 ML MDV ONE (18:40)
[2016-11-08] MEDS ORDERED: *HR* Succinylcholine 200 MG/10 ML VIAL IVP ONE (18:40)
[2016-11-08] MEDS ORDERED: Lidocaine -MPF 4% 5 ML AMPUL ONE (18:40)
[2016-11-08] MEDS ORDERED: *HR* FentaNYL (PF) 100 MCG/2 ML VIAL ONE (18:40)
[2016-11-08] MEDS ORDERED: Lidocaine -MPF 2% 2 ML VIAL ONE (18:40)
[2016-11-08] MEDS ORDERED: *HR* Midazolam HCl 5 MG/5 ML VIAL IVP ONE (18:40)
[2016-11-08] MEDS: FentaNYL (PF) 1,000 MCG in 0.9 % Sodium Chloride 80 ML IVC SCH (18:54)
[2016-11-08] MEDS: Cefepime HCl 1,000 MG in D5% in Water (Mini-Bag+) 100 ML IVPB SCH (18:55)
[2016-11-08] MEDS: Dexmedetomidine HCl 400 MCG/100 ML MLS IVC SCH (18:55)
[2016-11-08] MEDS ORDERED: Vancomycin 2,000 MG in D5% in Water 500 ML IVPB ONE (19:00)
[2016-11-08] MEDS ORDERED: *HR* Dextrose 50 % in Water (Syg) 50 ML SYRINGE IVP PRN (19:44)
[2016-11-08] MEDS ORDERED: Dextrose Gel 15 GM PO PRN ×2 (19:44)
[2016-11-08] MEDS ORDERED: D5% in Water 1,000 ML IVC PRN (19:44)
[2016-11-08] MEDS: *HR* Heparin 5,000 UNIT/ML VIAL SQ SCH (20:25)
[2016-11-08 20:43] LABS: ABG HCO3 35.1 mEQ/L (21-27); ABG Oxygen Saturation 97 % (95-98); ABG PCO2 58 mmHg (35-45); ABG PH 7.39 pH Units (7.32-7.45); ABG PO2 89 mmHg (85-104); ABG TCO2 36.9 mEq/L (20-26)
[2016-11-08 20:49] LABS: Blood Gas FiO2 65 %; Blood Gas Respiration Rate 14; Blood Gas VT 500 cc
[2016-11-08 20:50] LABS: Blood Gas PEEP 5 cm H2O
[2016-11-08 20:54] LABS: Calcium 8.6 mg/dL (8.6-10.8); Magnesium 1.2 mg/dL (1.6-2.6); Phosphorous 5.8 mg/dL (2.3-4.7)
[2016-11-08 21:01] LABS: Potassium 6.7 mEq/L (3.5-4.5)
[2016-11-08] MEDS ORDERED: Insulin Human Regular 10 UNIT in 0.9 % Sodium Chloride 10 ML IV ONE (22:03)
[2016-11-08] MEDS ORDERED: Ipratropium/Albuterol Neb 3 ML ONE (22:09)
[2016-11-08] MEDS: Ipratropium/Albuterol Neb 3 ML IH SCH (22:11)
[2016-11-08] MEDS: Chlorhexidine Rinse 15 ML MOUTHWASH MM SCH (22:49)
[2016-11-08] MEDS: Lacri-Lube 3.5 GM TUBE BOTH EYES SCH (22:50)
[2016-11-09] MEDS: Insulin LISPRO 300 UNITS/3 ML VIAL SQ SCH ×5 (00:16→23:54)
[2016-11-09] MEDS: Lacri-Lube 3.5 GM TUBE BOTH EYES SCH ×7 (00:16→23:50)
[2016-11-09] MEDS: Dexmedetomidine HCl 400 MCG/100 ML MLS IVC SCH ×3 (01:45→14:58)
[2016-11-09] MEDS: FentaNYL (PF) 1,000 MCG in 0.9 % Sodium Chloride 80 ML IVC SCH ×2 (02:50→13:55)
[2016-11-09] MEDS: Ipratropium/Albuterol Neb 3 ML IH SCH ×5 (04:56→22:12)
[2016-11-09 05:05] LABS: ABG Base Excess 11.7 mEq/L (-2.0 to 3.0); ABG HCO3 36.5 mEQ/L (21-27); ABG Oxygen Saturation 99 % (95-98); ABG PCO2 49 mmHg (35-45); ABG PH 7.48 pH Units (7.32-7.45); ABG PO2 121 mmHg (85-104); Blood Gas FiO2 55 %; Blood Gas PEEP 5 cm H2O; Blood Gas Respiration Rate 14; Blood Gas VT 500 cc
[2016-11-09 05:28] LABS: Basophils % 0.1 %; Hematocrit 27.9 % (37.5-50.1); Hemoglobin 8.9 g/dL (12.9-16.9); Immature Granulocytes % 0.5 % (0-4); Lymphocytes # 0.5 K/mcL (0.6-4.6); Mean Corpuscular HGB Conc 31.9 g/dL (31.6-35.5); Mean Corpuscular Hemoglobin 30.7 pg (28.0-33.3); Mean Corpuscular Volume 96.2 fL (83.0-100.0); Mean Platelet Volume 12.1 fL (9.4-12.4); Monocytes # 0.9 K/mcL (0.0-1.3); Monocytes % 5.6 %; Neutrophils # 15.1 K/mcL (1.6-8.9); Platelet Count 106 K/mcL (140-400); Red Cell Distribution Width 15.9 % (11.5-14.5); Segmented Neutrophils % 90.8 %
[2016-11-09 05:40] LABS: Calcium 8.6 mg/dL (8.6-10.8); Magnesium 1.3 mg/dL (1.6-2.6); Phosphorous 4.4 mg/dL (2.3-4.7); Potassium 5.9 mEq/L (3.5-4.5)
[2016-11-09] MEDS: *HR* Heparin 5,000 UNIT/ML VIAL SQ SCH ×2 (06:04→17:36)
[2016-11-09] MEDS: Chlorhexidine Rinse 15 ML MOUTHWASH MM SCH ×2 (07:31→20:23)
[2016-11-09] MEDS: Pantoprazole 40 MG VIAL IVPB SCH (07:32)
--- NOTE | 2016-11-09 08:42 | Pulmonology Progress Note ---
<Ellen Cook - Last Filed: 11/09/16 10:16> Date of Encounter: 11/09/16 Time of Encounter: 08:40 Assessment and Plan (1) Hypercapnic respiratory failure, chronic Current Visit: Yes Status: Chronic Patient has evidence of tracheal stenosis on intubation. Also has had previous tracheostomy. Plan to keep patient intubated over the weekend, we will maintain increased sedation. Neuro/psych: Sedated and intubated Pulm: Intubated and on mechanical ventilation. Cardio: Elevated troponin. Aspirin, beta matilda started. Echocardiogram ordered. Cardiology on board, appreciate recommendations. FEN-GI: --Hyperkalemia: Kayexalate --Start tube feeds --GI prophylaxis: Protonix --Patient with history of dysphasia. Will be placed on a dysphagia diet (i.e. soft chopped solids and thin liquids) when appropriate. Renal: HENRY on CKD, sCr improved. Nephrology on board, appreciate recommendations. ID: Patient met SIRS criteria on admission due to tachypnea and neutrophilic leukocytosis. Blood cultures and urine cultures obtained. Vancomycin and cefepime were started. Antibiotics day 2 Heme/Onc: --Patient with anemia and thrombocytopenia, stable. --DVT prophylaxis with SQ heparin Endocrine: Diabetes, sliding scale insulin. Integ/MSK: ICU skin care protocol (2) Hyperkalemia Current Visit: Yes Status: Acute (3) SIRS (systemic inflammatory response syndrome) Current Visit: Yes Status: Acute (4) Acute kidney injury superimposed on CKD Current Visit: Yes Status: Suspected (5) Angioedema Current Visit: Yes Status: Resolved Resolved Qualifiers: Encounter type: initial encounter Qualified Code(s): T78.3XXA - Angioneurotic edema, initial encounter (6) CHF (congestive heart failure) Current Visit: Yes Status: Chronic Qualifiers: Congestive heart failure type: unspecified congestive heart failure type Congestive heart failure chronicity: unspecified congestive heart failure chronicity Qualified Code(s): I50.9 - Heart failure, unspecified (7) COPD (chronic obstructive pulmonary disease) Current Visit: Yes Status: Chronic Qualifiers: COPD type: unspecified COPD Qualified Code(s): J44.9 - Chronic obstructive pulmonary disease, unspecified (8) Diabetes Current Visit: Yes Status: Chronic Qualifiers: Diabetes mellitus type: type 2 Diabetes mellitus complication status: with unspecified complications 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 Objective PUL Vital signs: Last Vital Signs Temp 98.5 F 11/09/16 07:30 Pulse 62 11/09/16 08:00 Resp 13 11/09/16 08:00 BP 138/69 11/09/16 08:00 Pulse Ox 95 11/09/16 08:00 General appearance: other (Sedated on mechanical ventilation) Neck: supple Effort: normal Auscultation: bilateral: clear Cardiovascular: regular rate and rhythm Gastrointestinal: normoactive bowel sounds, soft, non-tender Extremities: no edema, other (Evidence of peripheral vascular disease, onychomycosis, stasis dermatitis) unable to assess due to mental status, other (Sedated on mechanical ventilation) Ventilator Settings Ventilator Settings: Ventilator Settings, Last 8 Hours Ventilator Mode VC+ Ventilator Mode VC+ Ventilator Mode VC+ Ventilator Mode VC+ Ventilator Mode VC+ Ventilator Mode VC+ Ventilator Mode VC+ Ventilator Tidal Volume 480 Setting Ventilator Tidal Volume 500 Setting Ventilator Tidal Volume 500 Setting Ventilator Tidal Volume 500 Setting Ventilator Tidal Volume 500 Setting Ventilator Tidal Volume 500 Setting Ventilator Tidal Volume 500 Setting Ventilator Respiratory Rate 12 Setting Ventilator Respiratory Rate 12 Setting Ventilator Respiratory Rate 14 Setting Ventilator Respiratory Rate 14 Setting Ventilator Respiratory Rate 14 Setting Ventilator Respiratory Rate 14 Setting Ventilator Respiratory Rate 14 Setting Actual Respiratory Rate 12 Actual Respiratory Rate 12 Actual Respiratory Rate 14 Actual Respiratory Rate 14 Actual Respiratory Rate 14 Positive End Expiratory 5 Pressure Positive End Expiratory 5 Pressure Positive End Expiratory 5 Pressure Positive End Expiratory 5 Pressure Positive End Expiratory 5 Pressure Positive End Expiratory 5 Pressure Positive End Expiratory 5 Pressure Peak Inspiratory Airway 24 Pressure Peak Inspiratory Airway 39 Pressure Peak Inspiratory Airway 26 Pressure Peak Inspiratory Airway 33 Pressure Peak Inspiratory Airway 27 Pressure Results - Laboratory Findings CBC and BMP: 11/09/16 05:15 11/09/16 05:15 ABG ABG pH 7.48 pH Units (7.32-7.45) H 11/09/16 04:51 ABG pCO2 49 mmHg (35-45) H 11/09/16 04:51 ABG pO2 121 mmHg (85-104) H 11/09/16 04:51 ABG O2 Saturation 99 % (95-98) H 11/09/16 04:51 PT/INR, D-dimer PT 11.2 Seconds (9.4-12.1) 11/08/16 12:28 Abnormal lab findings: Abnormal lab results WBC 16.6 K/mcL (4.3-11.1) H 11/09/16 05:15 RBC 2.90 M/mcL (4.19-5.50) L 11/09/16 05:15 Hgb 8.9 g/dL (12.9-16.9) L 11/09/16 05:15 Hct 27.9 % (37.5-50.1) L 11/09/16 05:15 RDW 15.9 % (11.5-14.5) H 11/09/16 05:15 Plt Count 106 K/mcL (140-400) L 11/09/16 05:15 Neutrophils # 15.1 K/mcL (1.6-8.9) H 11/09/16 05:15 Lymphocytes # 0.5 K/mcL (0.6-4.6) L 11/09/16 05:15 APTT 25.4 Seconds (26.0-36.0) L 11/08/16 12:28 ABG pH 7.48 pH Units (7.32-7.45) H 11/09/16 04:51 ABG pCO2 49 mmHg (35-45) H 11/09/16 04:51 ABG pO2 121 mmHg (85-104) H 11/09/16 04:51 ABG HCO3 36.5 mEQ/L (21-27) H 11/09/16 04:51 ABG Total CO2 38.0 mEq/L (20-26) H 11/09/16 04:51 ABG O2 Saturation 99 % (95-98) H 11/09/16 04:51 ABG Base Excess 11.7 mEq/L (-2.0 to 3.0) H 11/09/16 04:51 Potassium 5.9 mEq/L (3.5-4.5) H 11/09/16 05:15 Carbon Dioxide 31 mEq/L (19-29) H 11/09/16 05:15 BUN 78 mg/dL (8-26) H 11/09/16 05:15 Creatinine 1.85 mg/dL (0.72-1.25) H 11/09/16 05:15 Est GFR ( Amer) 44 (> 60) L 11/09/16 05:15 Est GFR (Non-Af Amer) 36 (> 60) L 11/09/16 05:15 BUN/Creatinine Ratio 42 (6-26) H 11/09/16 05:15 Glucose 29 mg/dL (70-99) L* 11/09/16 05:15 Calculated Osmolality 311 (280-300) H 11/09/16 05:15 Magnesium 1.3 mg/dL (1.6-2.6) L 11/09/16 05:15 Troponin I 0.38 ng/mL (0-0.03) H* 11/08/16 12:28 B-Natriuretic Peptide 1330 pg/mL (0-100) H 11/08/16 12:28 Urine Clarity Cloudy (Clear) A 11/08/16 16:22 Urine Protein >=300 mg/dL (Neg-Trace) H 11/08/16 16:22 Urine Glucose (UA) 250 mg/dL (Normal) H 11/08/16 16:22 Ur Squamous Epith Cells Many per lpf (None-Few) H 11/08/16 16:22 - Clinical Findings Intake & Output: Intake & Output 11/08/16 11/09/16 11/09/16 23:59 07:59 15:59 Intake Total 807.2 / 807.2 202.8 / 202.8 Output Total 3100 / 3100 1200 / 1200 500 / 500 Balance -2292.8 / -2292.8 -997.2 / -997.2 -500 / -500 Weight 80 kg Consult Discharge Plan - Plan [facility]errals: [facility] [Primary Care Provider[facility] - <Scotty Bear - Last Filed: 11/09/16 12:24> Date of Encounter: 11/09/16 Objective PUL Vital signs: Last Vital Signs Temp 98.6 F 11/09/16 12:00 Pulse 69 11/09/16 12:00 Resp 12 11/09/16 12:00 BP 107/50 11/09/16 12:00 Pulse Ox 96 11/09/16 12:00 Ventilator Settings Ventilator Settings: Ventilator Settings, Last 8 Hours Ventilator Mode VC+ Ventilator Mode VC+ Ventilator Mode VC+ Ventilator Mode VC+ Ventilator Mode VC+ Ventilator Mode VC+ Ventilator Mode VC+ Ventilator Mode VC+ Ventilator Mode VC+ Ventilator Tidal Volume 480 Setting Ventilator Tidal Volume 480 Setting Ventilator Tidal Volume 480 Setting Ventilator Tidal Volume 480 Setting Ventilator Tidal Volume 480 Setting Ventilator Tidal Volume 500 Setting Ventilator Tidal Volume 500 Setting Ventilator Tidal Volume 500 Setting Ventilator Tidal Volume 500 Setting Ventilator Respiratory Rate 12 Setting Ventilator Respiratory Rate 12 Setting Ventilator Respiratory Rate 12 Setting Ventilator Respiratory Rate 12 Setting Ventilator Respiratory Rate 12 Setting Ventilator Respiratory Rate 12 Setting Ventilator Respiratory Rate 14 Setting Ventilator Respiratory Rate 14 Setting Ventilator Respiratory Rate 14 Setting Actual Respiratory Rate 12 Actual Respiratory Rate 12 Actual Respiratory Rate 12 Actual Respiratory Rate 13 Actual Respiratory Rate 12 Actual Respiratory Rate 12 Actual Respiratory Rate 14 Actual Respiratory Rate 14 Positive End Expiratory 5 Pressure Positive End Expiratory 5 Pressure Positive End Expiratory 5 Pressure Positive End Expiratory 5 Pressure Positive End Expiratory 5 Pressure Positive End Expiratory 5 Pressure Positive End Expiratory 5 Pressure Positive End Expiratory 5 Pressure Positive End Expiratory 5 Pressure Peak Inspiratory Airway 20 Pressure Peak Inspiratory Airway 20 Pressure Peak Inspiratory Airway 22 Pressure Peak Inspiratory Airway 23 Pressure Peak Inspiratory Airway 24 Pressure Peak Inspiratory Airway 39 Pressure Peak Inspiratory Airway 26 Pressure Peak Inspiratory Airway 33 Pressure Results - Laboratory Findings CBC and BMP: 11/09/16 05:15 11/09/16 05:15 ABG ABG pH 7.48 pH Units (7.32-7.45) H 11/09/16 04:51 ABG pCO2 49 mmHg (35-45) H 11/09/16 04:51 ABG pO2 121 mmHg (85-104) H 11/09/16 04:51 ABG O2 Saturation 99 % (95-98) H 11/09/16 04:51 PT/INR, D-dimer PT 11.2 Seconds (9.4-12.1) 11/08/16 12:28 Abnormal lab findings: Abnormal lab results WBC 16.6 K/mcL (4.3-11.1) H 11/09/16 05:15 RBC 2.90 M/mcL (4.19-5.50) L 11/09/16 05:15 Hgb 8.9 g/dL (12.9-16.9) L 11/09/16 05:15 Hct 27.9 % (37.5-50.1) L 11/09/16 05:15 RDW 15.9 % (11.5-14.5) H 11/09/16 05:15 Plt Count 106 K/mcL (140-400) L 11/09/16 05:15 Neutrophils # 15.1 K/mcL (1.6-8.9) H 11/09/16 05:15 Lymphocytes # 0.5 K/mcL (0.6-4.6) L 11/09/16 05:15 APTT 25.4 Seconds (26.0-36.0) L 11/08/16 12:28 ABG pH 7.48 pH Units (7.32-7.45) H 11/09/16 04:51 ABG pCO2 49 mmHg (35-45) H 11/09/16 04:51 ABG pO2 121 mmHg (85-104) H 11/09/16 04:51 ABG HCO3 36.5 mEQ/L (21-27) H 11/09/16 04:51 ABG Total CO2 38.0 mEq/L (20-26) H 11/09/16 04:51 ABG O2 Saturation 99 % (95-98) H 11/09/16 04:51 ABG Base Excess 11.7 mEq/L (-2.0 to 3.0) H 11/09/16 04:51 Potassium 5.9 mEq/L (3.5-4.5) H 11/09/16 05:15 Carbon Dioxide 31 mEq/L (19-29) H 11/09/16 05:15 BUN 78 mg/dL (8-26) H 11/09/16 05:15 Creatinine 1.85 mg/dL (0.72-1.25) H 11/09/16 05:15 Est GFR ( Amer) 44 (> 60) L 11/09/16 05:15 Est GFR (Non-Af Amer) 36 (> 60) L 11/09/16 05:15 BUN/Creatinine Ratio 42 (6-26) H 11/09/16 05:15 Glucose 29 mg/dL (70-99) L* 11/09/16 05:15 Calculated Osmolality 311 (280-300) H 11/09/16 05:15 Magnesium 1.3 mg/dL (1.6-2.6) L 11/09/16 05:15 Troponin I 3.60 ng/mL (0-0.03) H* 11/09/16 05:15 B-Natriuretic Peptide 1330 pg/mL (0-100) H 11/08/16 12:28 Urine Clarity Cloudy (Clear) A 11/08/16 16:22 Urine Protein >=300 mg/dL (Neg-Trace) H 11/08/16 16:22 Urine Glucose (UA) 250 mg/dL (Normal) H 11/08/16 16:22 Ur Squamous Epith Cells Many per lpf (None-Few) H 11/08/16 16:22 - Clinical Findings Intake & Output: Intake & Output 11/08/16 11/09/16 11/09/16 23:59 07:59 15:59 Intake Total 807.2 / 807.2 202.8 / 202.8 0 / 0 Output Total 3100 / 3100 1200 / 1200 950 / 950 Balance -2292.8 / -2292.8 -997.2 / -997.2 -950 / -950 Weight 80 kg 80 kg - Attending Attestation I examined this patient and my medical decision-making was reviewed with the PRESS ROOM SUPERVISOR/PA/Advanced Practice Nurse/Resident Physician. I agree with the documented findings, disposition and treatment plan as described except to the extent set forth below. Patient seen and examined at bedside Labs, radiology, chart personally reviewed. All lines examined without evidence of infection. Neuropsych: Encephalopathic likely secondary to metabolic derangement medication effect respiratory acidosis. CT head within normal limits. Responds to voice with mild sedation on vent moves all extremities he does have a history of traumatic brain injury Pulm: Acute on chronic hypoxic hypercarbic respiratory failure possibly secondary to volume overload from CHF no clear evidence of pneumonia on chest x- ray. Debated by anesthesia with surgical backup overnight in the operating theater. Really patient has tracheal stenosis from prior tracheostomy placement very high risk up her airway. Over week and will keep well sedated pending liberation trial with ENT availability. Arterial blood gas analysis is favorable a day however appears to be over oxygenated. Would repeat blood gas later in the afternoon after vent settings were manipulated (decrease minute ventilation) Cards: Mild troponin elevation on admission thought attributable to kidney injury and hyperkalemia however troponin on chest this morning had risen to 3 I requested a stat echocardiogram and requested cardiology reevaluate the patient in interim I have given him 81 mg of aspirin and started a beta matilda can start full anticoagulation per ACS protocol had cardiology discretion. He has a history of heart failure with reduced ejection fraction and has a Patient has a paced rhythm. FEN-GI: Start trophic enteral nutrition PPI given Renal: Suspected acute kidney injury possibly secondary to vascular congestion with several medications including spironolactone on board for CHF. Patient has responded favorably to Kayexalate diuresis will also give additional dose of diuretic today. Nephrology is following no acute indication for dialysis ID: Leukocytosis possible underlying sepsis high-risk for aspiration. Empiric antimicrobials have been given for concern of sepsis given elevated white count and overall decompensation lactate is normal cultures are pending de-escalate in 24 hours if no clear source of infection identified Heme/Onc: DVT prophylaxis given Endo: Glucose monitored and stable did have an episode of hypoglycemia related to hyper potassium cocktail but has been improving over the course of the morning Integ/MSK: Skin care per routine ICU care Allergy/Immune: Presenting with angioedema possibly related to LLUVIA inhibitor use although it is not absolutely clear from medication profile that he was taking this nevertheless overall lip and facial swelling has improved over the course of the evening. I will stop H1/H2 matilda and steroids presently as doubt they are adding much benefit overall care CODE: Full code
[2016-11-09] MEDS ORDERED: Furosemide 20 MG/2 ML VIAL IVP ONE (09:47)
[2016-11-09] MEDS: Aspirin 81 MG TAB.CHEW PO SCH (10:39)
[2016-11-09] MEDS ORDERED: Magnesium Sulfate 2 GM in D5% in Water 100 ML IVPB ONE (10:53)
--- NOTE | 2016-11-09 12:24 | Nephrology Progress Note ---
Date of Encounter: 11/09/16 Time of Encounter: 10:45 - Assessment and Plan (1) Hyperkalemia Current Visit: Yes Status: Acute Potassium improved after lasix with good UOP Still no BM with kayexalate, will re-dose another 30grams today (2) Angioedema Current Visit: Yes Status: Resolved Per primary team Qualifiers: Encounter type: subsequent encounter Qualified Code(s): T78.3XXD - Angioneurotic edema, subsequent encounter (3) CHF (congestive heart failure) Current Visit: Yes Status: Chronic stable, s/p lasix Troponin elevated, cardiology to see Qualifiers: Congestive heart failure type: unspecified congestive heart failure type Congestive heart failure chronicity: unspecified congestive heart failure chronicity Qualified Code(s): I50.9 - Heart failure, unspecified (4) Acute kidney injury superimposed on CKD Current Visit: Yes Status: Suspected SCr improving at 1.85, GFR 39. baseline still unclear Will check urine for proteinuria given positive UA Avoid nephrotoxins if possible and dose vanco by levels Subjective Principal diagnosis: Hyperkalemia, angioedema, acute on chronic hypercarbic respiratory failure Interval history: Pt seen and examined now intubated and sedated. No overnight BMs per nurse. Objective - Vital Signs Vital signs: Vital Signs Temp Pulse Resp BP Pulse Ox 11/09/16 12:00 98.6 F 69 12 107/50 96 11/09/16 11:31 12 126/62 96 11/09/16 11:00 64 12 126/62 95 11/09/16 10:10 12 150/75 96 11/09/16 10:00 64 14 150/75 94 11/09/16 09:00 67 13 139/70 97 11/09/16 08:00 62 13 138/69 95 11/09/16 07:30 98.5 F 68 12 138/84 94 11/09/16 07:24 12 155/86 97 11/09/16 06:00 98.8 F 92 14 153/81 98 11/09/16 05:40 14 155/86 98 11/09/16 05:00 62 14 156/85 99 11/09/16 04:56 14 149/84 96 11/09/16 04:00 63 14 150/87 98 11/09/16 03:00 65 14 150/85 97 11/09/16 02:22 14 150/85 96 11/09/16 02:00 65 14 150/85 97 11/09/16 01:00 64 14 141/83 96 11/09/16 00:36 14 132/76 100 11/09/16 00:00 98.6 F 67 15 144/80 99 11/08/16 23:00 71 14 149/80 98 11/08/16 22:12 14 98 11/08/16 22:04 14 160/96 99 11/08/16 22:00 59 14 160/96 98 11/08/16 21:00 60 14 156/89 99 11/08/16 20:28 14 96 11/08/16 20:00 59 14 144/80 95 11/08/16 19:00 97.8 F 70 14 146/84 95 11/08/16 18:49 14 93 11/08/16 18:18 28 163/77 11/08/16 17:23 70 28 163/77 98 Intake and Output 11/08/16 11/09/16 11/09/16 23:59 07:59 15:59 Intake Total 807.2 / 807.2 202.8 / 202.8 0 / 0 Output Total 3100 / 3100 1200 / 1200 950 / 950 Balance -2292.8 / -2292.8 -997.2 / -997.2 -950 / -950 Intake: IV Fluids 807.2 / 807.2 202.8 / 202.8 PRECEDEX 400 mcg In 100 52.7 / 52.7 147.3 / 147.3 ml @ 0.2 MCG/KG/HR 5.216 mls/hr IVC .[id number] JONI Rx#:[id number] FentaNYL (PF) 1,000 MCG 44.5 / 44.5 55.5 / 55.5 In 0.9 % Sodium Chloride 80 ML @ 50 MCG/HR 5 mls/ hr IVC CONT JONI Rx#: [id number] Calcium Gluconate 1,000 110 / 110 MG In Dextrose 5% 100 ML @ 220 mls/hr IVPB ONCE ONE Rx#:[id number] Maxipime 1,000 MG In 100 / 100 Dextrose 5% (Minibag+) 100 ML 100 ML @ 200 mls/ hr IVPB Q24H JONI Rx#: [id number] Vancocin 2,000 MG In 500 / 500 Dextrose 5% 500 ML @ 250 mls/hr IVPB ONCE ONE Rx#: [id number] Oral 0 / 0 Output: Urine Amount (Catheter) 800 / 800 Catheter 2300 / 2300 1200 / 1200 950 / 950 Other: Stool Size Small Stool Consistency soft Stool Characteristics Normal for Patient Stool Color Brown # Bowel Movements 1 Weight 80 kg 80 kg Blood Glucose* [phone] 93 Patient Weight 11/09/16 23:59 Weight 80 kg - General Appearance General appearance: Present: sedated on ventilator, intubated EENT: Present: ATNC Neck: Present: supple Respiratory: Present: course breath sounds Cardiology: Present: no edema, normal S1, normal S2 Gastrointestinal: Present: no tenderness, no guarding, obese Integumentary: Present: warm and dry, ecchymotic (UE bilat) Additional Comments: sedated Musculoskeletal: Present: no deformities Additional Comments: Sedated - Lab 11/09/16 05:15 11/09/16 05:15 Most recent lab results ABG pH 7.48 pH Units (7.32-7.45) H 11/09/16 04:51 ABG pCO2 49 mmHg (35-45) H 11/09/16 04:51 ABG pO2 121 mmHg (85-104) H 11/09/16 04:51 ABG HCO3 36.5 mEQ/L (21-27) H 11/09/16 04:51 ABG O2 Saturation 99 % (95-98) H 11/09/16 04:51 Calcium 8.6 mg/dL (8.6-10.8) 11/09/16 05:15 Phosphorus 4.4 mg/dL (2.3-4.7) 11/09/16 05:15 Magnesium 1.3 mg/dL (1.6-2.6) L 11/09/16 05:15 Consult Discharge Plan - Plan Referrals: [facility] [Primary Care Provider] -
[2016-11-09 13:10] LABS: Potassium 5.5 mEq/L (3.5-4.5)
[2016-11-09 13:30] LABS: Magnesium 1.6 mg/dL (1.6-2.6)
--- NOTE | 2016-11-09 13:38 | Cardiology Consult Note ---
Date of Encounter: 11/09/16 Time of Encounter: 13:00 Assessment and Plan (1) Elevated troponin Current Visit: Yes Status: Acute Troponin 0.34, 3.6 in the setting of severe electrolyte abnormality (K 7.1), acute respiratory failure secondary to angioedema of unclear etiology; suspect secondary to demand ischemia. Clinical presentation not consistent with ACS. ECG demonstrates paced rhythm. Prior TTE (2013) demonstrated LVEF 35%. Repeat echocardiogram ordered. Cardiac rehab is not indicated at this time. Started on betablocker per ICU team, monitor closely given reported allergy. Continue asa, will start statin. Continue supportive care. No further recommendations from Cardiology, anticipate sign-off. (2) CHF (congestive heart failure) Current Visit: Yes Status: Chronic Hx of systolic CHF as per TTE in 2013, EF 35%. Patient follows with the [facility], no recent records available to review. He does have significant facial edema, however no overt fluid overload upon exam. Continue betablocker. No ACEi/ARB due to angioedema (unclear etiology) and HENRY, hyperkalemia. Diuresis as needed. Follow-up with [facility] in the outpatient setting. Qualifiers: Congestive heart failure type: unspecified congestive heart failure type Congestive heart failure chronicity: unspecified congestive heart failure chronicity Qualified Code(s): I50.9 - Heart failure, unspecified Discussion w patient/family: The assessment and plan as outlined above was discussed with the patient and/or family members who expressed understanding and agreement. All questions were answered. Thank you for involving us in the care of your patient. Please call with any questions. The patient will be discussed and reviewed with Dr. Russo; changes to be made accordingly. History of Present Illness Consult date: 11/08/16 Requesting physician: Kym Watt Consult reason: Elevated troponin Chief complaint: AMS, angioedema History of present illness: Mr. Barron is a 71 year old male with reported PMH significant for DMII, MARLENA, CHF, dementia, COPD, and tobacco use who was brought to [facility] from the [facility] due to sudden onset of angioedema of unclear etiology. Please note HPI obtained from H&P and bedside RN as patient is intubated/ sedated. No old records available on floor. Per report, at time of event SPO2 was 34%, initial pH 7.13; patient was placed on Bipap, given epinephrine and solu-medrol at the [facility] prior to transfer. Respiratory status did not improve and therefore patient was taken to the OR for intubation. Initial potassium was 7.1 , then 7.5 with HENRY. Cardiology consulted for initial troponin 0.34. Prior CV testing ([place]): TTE 11/21/13: LVEF 35%, mildly dilated left ventricle, mildly dilated right ventricle with mildly reduced for systolic function, mild mitral regurgitation, no evidence of pulmonary hypertension, a device lead was visualized in the right atrium and right ventricle. Past Med Surg Social Fam HX - Past Medical History Source: old records reviewed, other (H&P) Medical history: arthritis, CHF (systolic), COPD, CVA, dementia, diabetes, GERD Psychiatric history: other (dementia) - Past Surgical History Surgical History: pacemaker/AICD - Social History Smoking Status: Current every day smoker Smokeless Tobacco Status: No Alcohol use: none Drug use: none Current living situation: ECF Medications and Allergies Alendronate Sodium [Fosamax] 70 mg PO QWEEK 11/08/16 [History] Budesonide/Formoterol 160/4.5 [Symbicort 160/4.5] 2 puff IH BIDR 11/08/16 [ History] Chlorhexidine Gluconate [Peridex] 15 ml MM BID 11/08/16 [History] Ergocalciferol (VITAMIN D2) [Vitamin D2] 50,000 unit PO TH 11/08/16 [History] Folic Acid 1 mg PO DAILY 11/08/16 [History] Guaifenesin [Mucus Relief] 400 mg PO BID 11/08/16 [History] Insulin Glargine [Lantus] 12 unit SQ 1200 11/08/16 [History] Insulin Human Regular [HumuLIN R] 2 - 15 unit SQ PRN PRN 11/08/16 [History] Ipratropium/Albuterol Neb [Duoneb] 3 ml IH Q2H PRN 11/08/16 [History] Ipratropium/Albuterol Neb [Duoneb] 3 ml IH Q4HR 11/08/16 [History] LevETIRAcetam [Keppra] 500 mg PO DAILY 11/08/16 [History] Ranitidine HCl [Zantac] 150 mg PO DAILY 11/08/16 [History] Simvastatin [Zocor] 40 mg PO HS 11/08/16 [History] Theophylline Anhydrous [Jesus-24] 100 mg PO DAILY 11/08/16 [History] amLODIPine [Norvasc] 5 mg PO DAILY 11/08/16 [History] hydrALAZINE [HydrALAZINE] 12.5 mg PO QID PRN 11/08/16 [History] hydrALAZINE [HydrALAZINE] 25 mg PO Q6HR 11/08/16 [History] levETIRAcetam [Keppra] 250 mg PO HS 11/08/16 [History] predniSONE [PredniSONE] See Taper PO TAPER 11/08/16 [History] Allergies carvedilol Allergy (Verified 11/08/16 11:50) See Comments unknown reaction, [facility]. ROS unobtainable: due to endotracheal tube, due to mental status All Systems Review: A 10-system review of systems was performed and is negative for pertinent findings except as documented above in the HPI. Physical Examination Vital Signs, Last 4 Hours Temp Pulse Resp BP Pulse Ox 11/09/16 13:00 68 13 126/71 97 11/09/16 12:00 98.6 F 69 12 107/50 96 11/09/16 11:31 12 126/62 96 11/09/16 11:00 64 12 126/62 95 11/09/16 10:10 12 150/75 96 11/09/16 10:00 64 14 150/75 94 General: Other (intubated/sedated) HEENT: Other (facial edema) Cardiac: Reg Rate and Rhythm, Normal S1 and S2 Lungs: Normal Breath Sounds (anterior only) Neuro: Other (intubated/sedated, PETERS x4) Abdomen: Soft Skin: No rashes noted on visualized skin Musculoskeletal: No Chest Wall Tenderness Extremities: Other (BUE edema, +1-2; mild pre-tibial edema) Results 11/09/16 05:15 11/09/16 12:50 Lab Results 11/08/16 11/09/16 11/09/16 20:30 05:15 05:15 WBC 16.6 H Hgb 8.9 L Hct 27.9 L Plt Count 106 L Sodium 140 141 Potassium 6.7 H* 5.9 H Chloride 101 100 Carbon Dioxide 32 H 31 H BUN 82 H 78 H Creatinine 2.02 H 1.85 H Glucose 178 H 29 L* Calcium 8.6 8.6 Magnesium 1.2 L 1.3 L Troponin I 11/09/16 11/09/16 05:15 12:50 WBC Hgb Hct Plt Count Sodium Potassium 5.5 H Chloride Carbon Dioxide BUN Creatinine Glucose Calcium Magnesium 1.6 Troponin I 3.60 H* - Imaging and Cardiology Echo: pending, report reviewed Other Results: 12 hour tele: avg HR=66 paced. No significant event noted. - EKG Interpretation EKG results cardiology: personally reviewed (paced rhythm) Consult Discharge Plan - Plan [facility]errals: [facility] [Primary Care Provider] -
[2016-11-09 14:29] LABS: ABG Base Excess 11.2 mEq/L (-2.0 to 3.0); ABG Oxygen Saturation 96 % (95-98); ABG PCO2 57 mmHg (35-45); ABG PH 7.42 pH Units (7.32-7.45); ABG PO2 78 mmHg (85-104); ABG TCO2 38.7 mEq/L (20-26)
[2016-11-09 14:30] LABS: Blood Gas FiO2 45 %
[2016-11-09 14:46] LABS: Protein/Creatinine Ratio,Urine 4.28 mg/mg (0-0.20)
[2016-11-09] MEDS: Cefepime HCl 1,000 MG in D5% in Water (Mini-Bag+) 100 ML IVPB SCH (17:37)
[2016-11-09] MEDS ORDERED: Vancomycin 1,500 MG in D5% in Water 250 ML IVPB SCH (19:00)
[2016-11-09 19:27] LABS: ABG HCO3 37.2 mEQ/L (21-27); ABG Oxygen Saturation 96 % (95-98); ABG PCO2 60 mmHg (35-45); ABG PO2 80 mmHg (85-104); Blood Gas FiO2 45 %
[2016-11-09] MEDS ORDERED: Vancomycin 1,250 MG in D5% in Water 250 ML IVPB SCH (20:00)
[2016-11-10] MEDS: FentaNYL (PF) 1,000 MCG in 0.9 % Sodium Chloride 80 ML IVC SCH ×4 (02:12→22:27)
[2016-11-10] MEDS: Lacri-Lube 3.5 GM TUBE BOTH EYES SCH ×6 (03:27→23:15)
[2016-11-10 03:46] LABS: Basophils % 0.1 %; Eosinophils % 0.1 %; Lymphocytes % 5.8 %
[2016-11-10 03:48] LABS: Hematocrit 26.6 % (37.5-50.1); Hemoglobin 8.3 g/dL (12.9-16.9); Immature Granulocytes % 0.6 % (0-4); Immature Platelets 9.3 % (1.1-6.1); Lymphocytes # 0.7 K/mcL (0.6-4.6); Mean Corpuscular HGB Conc 31.2 g/dL (31.6-35.5); Mean Corpuscular Hemoglobin 31.2 pg (28.0-33.3); Mean Platelet Volume 12.3 fL (9.4-12.4); Monocytes # 0.6 K/mcL (0.0-1.3); Monocytes % 4.5 %; Neutrophils # 11.3 K/mcL (1.6-8.9); Red Blood Count 2.66 M/mcL (4.19-5.50); Red Cell Distribution Width 16.5 % (11.5-14.5); Segmented Neutrophils % 88.9 %
[2016-11-10 03:50] LABS: Platelet Count 97 K/mcL (140-400)
[2016-11-10 03:54] LABS: Calcium 8.3 mg/dL (8.6-10.8); Magnesium 1.9 mg/dL (1.6-2.6)
[2016-11-10 04:11] LABS: Hypochromasia Present (Not Present); Platelet Estimate Decreased (Normal)
[2016-11-10] MEDS: Ipratropium/Albuterol Neb 3 ML IH SCH ×4 (04:34→22:23)
[2016-11-10] MEDS: *HR* Heparin 5,000 UNIT/ML VIAL SQ SCH ×2 (06:17→17:51)
[2016-11-10] MEDS: Insulin LISPRO 300 UNITS/3 ML VIAL SQ SCH ×4 (06:17→23:19)
[2016-11-10] MEDS ORDERED: Sodium Phosphate 30 MMOL in D5% in Water 100 ML IVPB PRN (07:08)
[2016-11-10] MEDS ORDERED: Magnesium Sulfate 2 GM in D5% in Water 100 ML IVPB PRN (07:08)
--- NOTE | 2016-11-10 08:16 | Pulmonology Progress Note ---
<Ellen Cook - Last Filed: 11/10/16 09:37> Date of Encounter: 11/10/16 Time of Encounter: 08:13 Assessment and Plan (1) Hypercapnic respiratory failure, chronic Current Visit: Yes Status: Chronic Neuro/psych: Sedated and intubated. Opens eyes during exam, does not follow any commands. Pulm: Intubated and on mechanical ventilation. Plan to keep patient intubated until ENT availability for extubation. Cardio: Continue aspirin, statin, beta matilda. Echocardiogram ordered. Cardiology on board, appreciate recommendations. FEN-GI: GI prophylaxis on board with Protonix. On tube feeds. Hyperkalemia being managed. --Patient with history of dysphasia. Will be placed on a dysphagia diet (i.e. soft chopped solids and thin liquids) when appropriate. Renal: HENRY on CKD, sCr elevated from yesterday. Nephrology on board, appreciate recommendations. ID: Patient met SIRS criteria on admission due to tachypnea and neutrophilic leukocytosis. Blood cultures and urine cultures, preliminary results negative. Vancomycin and cefepime. Antibiotics day 3 Heme/Onc: Anemia and thrombocytopenia, trending down. Continue to monitor. DVT prophylaxis with SQ heparin Endocrine: Diabetes, sliding scale insulin. Integ/MSK: ICU skin care protocol Code: Full Code (2) Hyperkalemia Current Visit: Yes Status: Acute (3) SIRS (systemic inflammatory response syndrome) Current Visit: Yes Status: Acute (4) Acute kidney injury superimposed on CKD Current Visit: Yes Status: Suspected (5) Angioedema Current Visit: Yes Status: Resolved Resolved Qualifiers: Encounter type: subsequent encounter Qualified Code(s): T78.3XXD - Angioneurotic edema, subsequent encounter (6) CHF (congestive heart failure) Current Visit: Yes Status: Chronic Qualifiers: Congestive heart failure type: unspecified congestive heart failure type Congestive heart failure chronicity: unspecified congestive heart failure chronicity Qualified Code(s): I50.9 - Heart failure, unspecified (7) COPD (chronic obstructive pulmonary disease) Current Visit: Yes Status: Chronic Qualifiers: COPD type: unspecified COPD Qualified Code(s): J44.9 - Chronic obstructive pulmonary disease, unspecified (8) Diabetes Current Visit: Yes Status: Chronic Qualifiers: Diabetes mellitus type: type 2 Diabetes mellitus complication status: with unspecified complications Diabetes mellitus exterminator helper termite insulin use: with exterminator helper termite use Qualified Code(s): E11.8 - Type 2 diabetes mellitus with unspecified complications; Z79.4 - intermediate (current) use of insulin (9) History of traumatic brain injury Current Visit: Yes Status: Chronic (10) History of CVA (cerebrovascular accident) Current Visit: Yes Status: Chronic Subjective Principal diagnosis: Hyperkalemia, angioedema, acute on chronic hypercarbic respiratory failure Interval history: Patient sedated on mechanical ventilation, no acute events overnight. Objective PUL Vital signs: Last Vital Signs Temp 98.7 F 11/10/16 08:07 Pulse 61 11/10/16 06:00 Resp 13 11/10/16 07:56 BP 131/62 11/10/16 07:56 Pulse Ox 100 11/10/16 07:56 General appearance: other (Sedated on mechanical ventilation) Eyes: nonicteric ENT: oropharynx moist Neck: supple Effort: normal Auscultation: bilateral: clear Cardiovascular: regular rate and rhythm Gastrointestinal: normoactive bowel sounds, soft Gait: other (Moves all extremities) other (Opens eyes to voice, does not look at examiner on command; does not follow commands with any extremity) Ventilator Settings Ventilator Settings: Ventilator Settings, Last 8 Hours Ventilator Mode VC+ Ventilator Mode VC+ Ventilator Mode VC+ Ventilator Mode VC+ Ventilator Mode VC+ Ventilator Tidal Volume 400 Setting Ventilator Tidal Volume 400 Setting Ventilator Tidal Volume 400 Setting Ventilator Tidal Volume 400 Setting Ventilator Tidal Volume 400 Setting Ventilator Respiratory Rate 12 Setting Ventilator Respiratory Rate 12 Setting Ventilator Respiratory Rate 12 Setting Ventilator Respiratory Rate 12 Setting Ventilator Respiratory Rate 12 Setting Actual Respiratory Rate 20 Actual Respiratory Rate 12 Actual Respiratory Rate 12 Actual Respiratory Rate 12 Actual Respiratory Rate 14 Positive End Expiratory 5 Pressure Positive End Expiratory 5 Pressure Positive End Expiratory 5 Pressure Positive End Expiratory 5 Pressure Positive End Expiratory 5 Pressure Peak Inspiratory Airway 21 Pressure Peak Inspiratory Airway 21 Pressure Peak Inspiratory Airway 21 Pressure Peak Inspiratory Airway 22 Pressure Peak Inspiratory Airway 16 Pressure Results - Laboratory Findings CBC and BMP: 11/10/16 03:28 11/10/16 03:28 ABG ABG pH 7.40 pH Units (7.32-7.45) 11/09/16 19:15 ABG pCO2 60 mmHg (35-45) H 11/09/16 19:15 ABG pO2 80 mmHg (85-104) L 11/09/16 19:15 ABG O2 Saturation 96 % (95-98) 11/09/16 19:15 PT/INR, D-dimer PT 11.2 Seconds (9.4-12.1) 11/08/16 12:28 Abnormal lab findings: Abnormal lab results WBC 12.7 K/mcL (4.3-11.1) H 11/10/16 03:28 RBC 2.66 M/mcL (4.19-5.50) L 11/10/16 03:28 Hgb 8.3 g/dL (12.9-16.9) L 11/10/16 03:28 Hct 26.6 % (37.5-50.1) L 11/10/16 03:28 MCHC 31.2 g/dL (31.6-35.5) L 11/10/16 03:28 RDW 16.5 % (11.5-14.5) H 11/10/16 03:28 Plt Count 97 K/mcL (140-400) L 11/10/16 03:28 Neutrophils # 11.3 K/mcL (1.6-8.9) H 11/10/16 03:28 Platelet Estimate Decreased (Normal) L 11/10/16 03:28 Immature Plt Fraction 9.3 % (1.1-6.1) H 11/10/16 03:28 Hypochromasia Present (Not Present) A 11/10/16 03:28 APTT 25.4 Seconds (26.0-36.0) L 11/08/16 12:28 ABG pCO2 60 mmHg (35-45) H 11/09/16 19:15 ABG pO2 80 mmHg (85-104) L 11/09/16 19:15 ABG HCO3 37.2 mEQ/L (21-27) H 11/09/16 19:15 ABG Total CO2 39.0 mEq/L (20-26) H 11/09/16 19:15 ABG Base Excess 11.0 mEq/L (-2.0 to 3.0) H 11/09/16 19:15 Potassium 5.0 mEq/L (3.5-4.5) H 11/10/16 03:28 Carbon Dioxide 33 mEq/L (19-29) H 11/10/16 03:28 BUN 73 mg/dL (8-26) H 11/10/16 03:28 Creatinine 2.07 mg/dL (0.72-1.25) H 11/10/16 03:28 Est GFR ( Amer) 38 (> 60) L 11/10/16 03:28 Est GFR (Non-Af Amer) 32 (> 60) L 11/10/16 03:28 BUN/Creatinine Ratio 35 (6-26) H 11/10/16 03:28 POC Glucose 181 (58-89) H 11/09/16 23:17 Calculated Osmolality 312 (280-300) H 11/10/16 03:28 Calcium 8.3 mg/dL (8.6-10.8) L 11/10/16 03:28 Troponin I 3.60 ng/mL (0-0.03) H* 11/09/16 05:15 B-Natriuretic Peptide 1330 pg/mL (0-100) H 11/08/16 12:28 Urine Clarity Cloudy (Clear) A 11/08/16 16:22 Urine Protein >=300 mg/dL (Neg-Trace) H 11/08/16 16:22 Urine Glucose (UA) 250 mg/dL (Normal) H 11/08/16 16:22 Ur Squamous Epith Cells Many per lpf (None-Few) H 11/08/16 16:22 Microalb/Creat Ratio 2883 (0-30) H 11/09/16 13:30 Protein/Creatinin Ratio 4.28 mg/mg (0-0.20) H 11/09/16 13:30 Urine Total Protein 77 mg/dL (1-14) H 11/09/16 13:30 - Microbiology Findings Microbiology Findings: Microbiology, Last 48 Hours 11/08/16 17:21 Blood Culture - Preliminary Peripheral Venipuncture No growth. 11/08/16 17:21 Blood Culture - Preliminary Peripheral Venipuncture No growth. 11/09/16 10:20 Sputum Culture - Preliminary Sputum - Clinical Findings Intake & Output: Intake & Output 11/09/16 11/10/16 11/10/16 23:59 07:59 15:59 Intake Total 490 / 490 160 / 160 Output Total 1000 / 1000 350 / 350 200 / 200 Balance -510 / -510 -190 / -190 -200 / -200 Weight 77.3 kg Consult Discharge Plan - Plan Referrals: [facility]Primary Care Provider[facility] - <SadiqdeweyNetties W - Last Filed: 11/10/16 09:52> Date of Encounter: 11/10/16 Objective PUL Vital signs: Last Vital Signs Temp 98.7 F 11/10/16 08:07 Pulse 64 11/10/16 09:00 Resp 12 11/10/16 09:00 BP 118/57 11/10/16 09:00 Pulse Ox 98 11/10/16 09:00 Ventilator Settings Ventilator Settings: Ventilator Settings, Last 8 Hours Ventilator Mode VC+ Ventilator Mode VC+ Ventilator Mode VC+ Ventilator Mode VC+ Ventilator Mode VC+ Ventilator Mode VC+ Ventilator Tidal Volume 400 Setting Ventilator Tidal Volume 400 Setting Ventilator Tidal Volume 400 Setting Ventilator Tidal Volume 400 Setting Ventilator Tidal Volume 400 Setting Ventilator Tidal Volume 400 Setting Ventilator Respiratory Rate 12 Setting Ventilator Respiratory Rate 12 Setting Ventilator Respiratory Rate 12 Setting Ventilator Respiratory Rate 12 Setting Ventilator Respiratory Rate 12 Setting Ventilator Respiratory Rate 12 Setting Actual Respiratory Rate 12 Actual Respiratory Rate 12 Actual Respiratory Rate 20 Actual Respiratory Rate 12 Actual Respiratory Rate 12 Actual Respiratory Rate 12 Positive End Expiratory 5 Pressure Positive End Expiratory 5 Pressure Positive End Expiratory 5 Pressure Positive End Expiratory 5 Pressure Positive End Expiratory 5 Pressure Positive End Expiratory 5 Pressure Peak Inspiratory Airway 20 Pressure Peak Inspiratory Airway 20 Pressure Peak Inspiratory Airway 21 Pressure Peak Inspiratory Airway 21 Pressure Peak Inspiratory Airway 21 Pressure Peak Inspiratory Airway 22 Pressure Results - Laboratory Findings CBC and BMP: 11/10/16 03:28 11/10/16 03:28 ABG ABG pH 7.40 pH Units (7.32-7.45) 11/09/16 19:15 ABG pCO2 60 mmHg (35-45) H 11/09/16 19:15 ABG pO2 80 mmHg (85-104) L 11/09/16 19:15 ABG O2 Saturation 96 % (95-98) 11/09/16 19:15 PT/INR, D-dimer PT 11.2 Seconds (9.4-12.1) 11/08/16 12:28 Abnormal lab findings: Abnormal lab results WBC 12.7 K/mcL (4.3-11.1) H 11/10/16 03:28 RBC 2.66 M/mcL (4.19-5.50) L 11/10/16 03:28 Hgb 8.3 g/dL (12.9-16.9) L 11/10/16 03:28 Hct 26.6 % (37.5-50.1) L 11/10/16 03:28 MCHC 31.2 g/dL (31.6-35.5) L 11/10/16 03:28 RDW 16.5 % (11.5-14.5) H 11/10/16 03:28 Plt Count 97 K/mcL (140-400) L 11/10/16 03:28 Neutrophils # 11.3 K/mcL (1.6-8.9) H 11/10/16 03:28 Platelet Estimate Decreased (Normal) L 11/10/16 03:28 Immature Plt Fraction 9.3 % (1.1-6.1) H 11/10/16 03:28 Hypochromasia Present (Not Present) A 11/10/16 03:28 APTT 25.4 Seconds (26.0-36.0) L 11/08/16 12:28 ABG pCO2 60 mmHg (35-45) H 11/09/16 19:15 ABG pO2 80 mmHg (85-104) L 11/09/16 19:15 ABG HCO3 37.2 mEQ/L (21-27) H 11/09/16 19:15 ABG Total CO2 39.0 mEq/L (20-26) H 11/09/16 19:15 ABG Base Excess 11.0 mEq/L (-2.0 to 3.0) H 11/09/16 19:15 Potassium 5.0 mEq/L (3.5-4.5) H 11/10/16 03:28 Carbon Dioxide 33 mEq/L (19-29) H 11/10/16 03:28 BUN 73 mg/dL (8-26) H 11/10/16 03:28 Creatinine 2.07 mg/dL (0.72-1.25) H 11/10/16 03:28 Est GFR ( Amer) 38 (> 60) L 11/10/16 03:28 Est GFR (Non-Af Amer) 32 (> 60) L 11/10/16 03:28 BUN/Creatinine Ratio 35 (6-26) H 11/10/16 03:28 POC Glucose 181 (58-89) H 11/09/16 23:17 Calculated Osmolality 312 (280-300) H 11/10/16 03:28 Calcium 8.3 mg/dL (8.6-10.8) L 11/10/16 03:28 Ionized Calcium 1.03 mmol/L (1.15-1.35) L 11/10/16 09:30 Troponin I 3.60 ng/mL (0-0.03) H* 11/09/16 05:15 B-Natriuretic Peptide 1330 pg/mL (0-100) H 11/08/16 12:28 Urine Clarity Cloudy (Clear) A 11/08/16 16:22 Urine Protein >=300 mg/dL (Neg-Trace) H 11/08/16 16:22 Urine Glucose (UA) 250 mg/dL (Normal) H 11/08/16 16:22 Ur Squamous Epith Cells Many per lpf (None-Few) H 11/08/16 16:22 Microalb/Creat Ratio 2883 (0-30) H 11/09/16 13:30 Protein/Creatinin Ratio 4.28 mg/mg (0-0.20) H 11/09/16 13:30 Urine Total Protein 77 mg/dL (1-14) H 11/09/16 13:30 - Microbiology Findings Microbiology Findings: Microbiology, Last 48 Hours 11/08/16 17:21 Blood Culture - Preliminary Peripheral Venipuncture No growth. 11/08/16 17:21 Blood Culture - Preliminary Peripheral Venipuncture No growth. 11/09/16 10:20 Sputum Culture - Preliminary Sputum - Clinical Findings Intake & Output: Intake & Output 11/09/16 11/10/16 11/10/16 23:59 07:59 15:59 Intake Total 490 / 490 160 / 160 Output Total 1000 / 1000 350 / 350 200 / 200 Balance -510 / -510 -190 / -190 -200 / -200 Weight 77.3 kg - Attending Attestation I examined this patient and my medical decision-making was reviewed with the CAR DRIVER/PA/Advanced Practice Nurse/Resident Physician. I agree with the documented findings, disposition and treatment plan as described except to the extent set forth below. Patient seen and examined at bedside Labs, radiology, chart personally reviewed. All lines examined without evidence of infection. Neuropsych: Presented with multifactorial encephalopathy including metabolic derangements and respiratory acidosis. Now Intubated and sedated opens eyes to voice continue sedation for goal Elise score of 3. Neuro exam stable Pulm: Acute on chronic hypoxic hypercarbic respiratory failure intubated. 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 Patient has a 6.5 tube in would proceed with spontaneous breathing trial and extubation with otolaryngology back up which will be until tomorrow. Acceptable oxygenation today on low tidal volume ventilatory strategy. Minimal O2 requirement Cards: Troponin elevation in the context of acute kidney injury hyperkalemia and demand ischemia with history of heart failure with reduced ejection fraction (30%). Cardiology is being consulted does not feel this is ACS beta matilda aspirin given along with statin echo pending FEN-GI: Trophic enteral nutrition started PPI prophylaxis given Renal: Appears to have a K I with hyperkalemia hyperkalemia has improved to 5.0 today recommend neck even to slightly negative volume status as he has had diuresis over the last 24 hours was initial improvement in creatinine but further deterioration overnight nephrology has been consulted and are following ID: Empirically treating for sepsis of unclear etiology cultures negative thus far de-escalate/stop tomorrow if no clear evidence of infection Heme/Onc: DVT prophylaxis given H/H and platelets are stable Endo: History of diabetes glucose monitored and well-controlled Integ/MSK: Skin care per ICU protocol to prevent ulcers Immune/Allergy: Presented with what appeared to been angioedema of unclear etiology which has resolved. He will need allergy follow-up at discharge CODE: Full
[2016-11-10] MEDS: Pantoprazole 40 MG VIAL IVPB SCH (09:32)
[2016-11-10] MEDS: Chlorhexidine Rinse 15 ML MOUTHWASH MM SCH ×2 (09:32→21:21)
[2016-11-10] MEDS: Aspirin 81 MG TAB.CHEW PO SCH (09:32)
--- NOTE | 2016-11-10 09:34 | Electrocardiograph Report ---
[place] [id number] Test Date: 2016-11-08 Pat Name: Gregory Barron Department: 105 Room: [facility] Gender: M Slot Key Person: : 1945 Requested By: Ida Olmos Order Number: [id number] Reading MD: Shane Russo MD Measurements Intervals [place] Rate: 59 P: 88 NH: 178 QRS: -79 QRSD: 188 T: 102 QT: 463 QTc: 463 Interpretive Statements ELECTRONIC ATRIAL PACEMAKER ELECTRONIC VENTRICULAR PACEMAKER Electronically Signed On 11-10-2016 9:32:56 EDT by Shane Russo MD
[2016-11-10 09:55] LABS: ABG Base Excess 9.4 mEq/L (-2.0 to 3.0); ABG HCO3 36.7 mEQ/L (21-27); ABG Oxygen Saturation 95 % (95-98); ABG PCO2 68 mmHg (35-45); ABG PH 7.34 pH Units (7.32-7.45); ABG PO2 81 mmHg (85-104); ABG TCO2 38.8 mEq/L (20-26)
[2016-11-10 09:57] LABS: Blood Gas FiO2 45 %
[2016-11-10] MEDS: Calcium Gluconate 1,000 MG in D5% in Water 100 ML IVPB PRN (12:21)
--- NOTE | 2016-11-10 12:52 | Nephrology Progress Note ---
Date of Encounter: 11/10/16 Time of Encounter: 14:00 - Assessment and Plan (1) Hyperkalemia Current Visit: Yes Status: Resolved Potassium cotinues to improve at 5, will monitor No more kayexalate needed at this time Lasix still on board which is still helpful (2) Angioedema Current Visit: Yes Status: Resolved Per primary team Qualifiers: Encounter type: subsequent encounter Qualified Code(s): T78.3XXD - Angioneurotic edema, subsequent encounter (3) CHF (congestive heart failure) Current Visit: Yes Status: Chronic stable, s/p lasix Troponin elevated, cardiology evaluated and ACS not likely Qualifiers: Congestive heart failure type: systolic Congestive heart failure chronicity : unspecified congestive heart failure chronicity Qualified Code(s): I50.20 - Unspecified systolic (congestive) heart failure (4) Acute kidney injury superimposed on CKD Current Visit: Yes Status: Acute SCr worsen again at 2.07, GFR 32 likley due to diuresis +/- exposure to nephrotoxin, vanco Avoid nephrotoxins if possible, now off vanco but will check level Urine shows nephrotic range proteinuria likely chronic due to ?DM. Will check SPEP and UPEP Subjective Principal diagnosis: Hyperkalemia, angioedema, acute on chronic hypercarbic respiratory failure Interval history: Pt seen and examined now intubated and sedated. No overnight BMs per nurse. Objective - Vital Signs Vital signs: Vital Signs Temp Pulse Resp BP Pulse Ox 11/10/16 12:00 98.3 F 60 12 114/50 92 11/10/16 11:25 13 129/54 98 11/10/16 11:00 60 12 129/54 98 11/10/16 10:00 64 12 114/49 100 11/10/16 09:56 12 116/64 95 11/10/16 09:00 64 12 118/57 98 11/10/16 08:07 98.7 F 11/10/16 08:00 64 12 125/58 97 11/10/16 07:56 13 131/62 100 11/10/16 07:00 98.7 F 64 12 119/64 98 11/10/16 06:00 61 12 121/55 99 11/10/16 05:41 12 116/59 98 11/10/16 05:00 61 12 116/57 99 11/10/16 04:35 12 115/57 99 11/10/16 03:00 98.3 F 62 12 122/65 97 11/10/16 02:29 12 119/58 99 11/10/16 02:00 63 12 109/61 100 11/10/16 01:00 67 15 110/59 100 11/10/16 00:39 14 97 11/10/16 00:09 98.2 F 11/10/16 00:00 64 11/09/16 23:00 64 13 125/54 100 11/09/16 22:15 14 128/54 99 11/09/16 22:00 65 13 128/54 99 11/09/16 21:00 62 15 112/48 100 11/09/16 20:33 12 105/54 100 11/09/16 20:00 64 15 99/50 100 11/09/16 19:29 98.7 F 11/09/16 19:00 63 14 100/54 100 11/09/16 18:00 64 13 131/62 98 11/09/16 17:00 62 12 132/72 96 11/09/16 16:35 12 132/72 96 11/09/16 16:19 98.0 F 11/09/16 16:00 98.0 F 11/09/16 15:00 63 12 144/76 95 11/09/16 14:15 12 126/85 96 11/09/16 14:00 66 12 126/85 98 11/09/16 13:00 68 13 126/71 97 Intake and Output 11/09/16 11/10/16 11/10/16 23:59 07:59 15:59 Intake Total 490 / 490 160 / 160 372 / 372 Output Total 1000 / 1000 350 / 350 450 / 450 Balance -510 / -510 -190 / -190 -78 / -78 Intake: IV Fluids 490 / 490 160 / 160 204 / 204 FentaNYL (PF) 1,000 MCG 40 / 40 60 / 60 100 / 100 In 0.9 % Sodium Chloride 80 ML @ 50 MCG/HR 5 mls/ hr IVC CONT JONI Rx#: [id number] Diprivan 1,000 mg In 100 100 / 100 100 / 100 ml @ 20 MCG/KG/MIN 9.6 mls/hr IVC .[id number] JONI Rx#:[id number] Maxipime 1,000 MG In 100 / 100 Dextrose 5% (Minibag+) 100 ML 100 ML @ 200 mls/ hr IVPB Q24H [facility] Rx#: [id number] Magnesium Sulfate 2 GM In 104 / 104 Dextrose 5% 100 ML @ 50 mls/hr IVPB Q6H PRN Rx#: [id number] Vancocin 1,250 MG In 250 / 250 Dextrose 5% 250 ML @ 166. 67 mls/hr IVPB Q24H [facility] Rx#:[id number] Tube Feeding 168 / 168 Output: Catheter 1000 / 1000 350 / 350 450 / 450 Other: Weight 77.3 kg Blood Glucose* 162 70 121 Patient Weight 11/10/16 23:59 Weight 77.3 kg - General Appearance General appearance: Present: sedated on ventilator, intubated EENT: Present: ATNC Neck: Present: no JVD, supple Respiratory: Present: course breath sounds Cardiology: Present: no edema, normal S1, normal S2 Gastrointestinal: Present: no tenderness, no guarding Integumentary: Present: warm and dry Additional Comments: sedated Musculoskeletal: Present: no deformities Additional Comments: sedated - Lab 11/14/16 04:15 11/14/16 04:15 Most recent lab results ABG pH 7.34 pH Units (7.32-7.45) 11/10/16 09:42 ABG pCO2 68 mmHg (35-45) H 11/10/16 09:42 ABG pO2 81 mmHg (85-104) L 11/10/16 09:42 ABG HCO3 36.7 mEQ/L (21-27) H 11/10/16 09:42 ABG O2 Saturation 95 % (95-98) 11/10/16 09:42 Calcium 8.3 mg/dL (8.6-10.8) L 11/10/16 03:28 Phosphorus 4.4 mg/dL (2.3-4.7) 11/09/16 05:15 Magnesium 1.9 mg/dL (1.6-2.6) 11/10/16 03:28 Urine Creatinine 18 mg/dL 11/09/16 13:30 Urine Total Protein 77 mg/dL (1-14) H 11/09/16 13:30 Consult Discharge Plan - Plan Additional Instructions: Ensure follow up with Urology for voiding trial Ensure follow up with Cardiology and nephrology Referrals: [facility] [Outside]
[2016-11-10] MEDS: Cefepime HCl 1,000 MG in D5% in Water (Mini-Bag+) 100 ML IVPB SCH (17:50)
[2016-11-10] MEDS ORDERED: Vancomycin 1 EACH in D5% in Water 250 ML IVPB SCH (20:00)
[2016-11-10] MEDS: Dexmedetomidine HCl 400 MCG/100 ML MLS IVC SCH (21:24)
[2016-11-11] MEDS: Dexmedetomidine HCl 400 MCG/100 ML MLS IVC SCH ×2 (03:12→23:32)
[2016-11-11] MEDS: Lacri-Lube 3.5 GM TUBE BOTH EYES SCH ×4 (03:13→14:44)
[2016-11-11] MEDS: Ipratropium/Albuterol Neb 3 ML IH SCH ×4 (04:17→21:40)
[2016-11-11 04:28] LABS: Basophils % 0.2 %; Red Cell Distribution Width 16.1 % (11.5-14.5)
[2016-11-11 04:30] LABS: Eosinophils # 0.1 K/mcL (0.0-0.6); Eosinophils % 0.9 %; Hemoglobin 7.8 g/dL (12.9-16.9); Immature Granulocytes % 0.8 % (0-4); Immature Platelets 8.7 % (1.1-6.1); Lymphocytes # 0.6 K/mcL (0.6-4.6); Lymphocytes % 11.7 %; Mean Platelet Volume 11.3 fL (9.4-12.4); Monocytes # 0.3 K/mcL (0.0-1.3); Monocytes % 5.3 %; Neutrophils # 4.3 K/mcL (1.6-8.9); Segmented Neutrophils % 81.1 %
[2016-11-11 04:34] LABS: Platelet Count 88 K/mcL (140-400)
[2016-11-11 04:46] LABS: Calcium 8.2 mg/dL (8.6-10.8); Potassium 4.1 mEq/L (3.5-4.5)
[2016-11-11 06:25] LABS: ABG Base Excess 12.4 mEq/L (-2.0 to 3.0); ABG HCO3 39.7 mEQ/L (21-27); ABG Oxygen Saturation 97 % (95-98); ABG PH 7.35 pH Units (7.32-7.45); ABG PO2 93 mmHg (85-104); ABG TCO2 41.9 mEq/L (20-26); Blood Gas FiO2 45 %
[2016-11-11 06:26] LABS: ABG PCO2 72 mmHg (35-45)
[2016-11-11] MEDS: Insulin LISPRO 300 UNITS/3 ML VIAL SQ SCH ×3 (06:37→16:29)
[2016-11-11] MEDS: *HR* Heparin 5,000 UNIT/ML VIAL SQ SCH (06:38)
--- NOTE | 2016-11-11 06:56 | Electrocardiograph Report ---
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
[2016-11-11] MEDS: Aspirin 81 MG TAB.CHEW PO SCH (08:00)
[2016-11-11] MEDS: Chlorhexidine Rinse 15 ML MOUTHWASH MM SCH (08:00)
[2016-11-11] MEDS: Pantoprazole 40 MG VIAL IVPB SCH (08:00)
--- NOTE | 2016-11-11 08:22 | Pulmonology Progress Note ---
<Ellen Cook - Last Filed: 11/11/16 10:48> Date of Encounter: 11/11/16 Time of Encounter: 08:19 Assessment and Plan (1) Hypercapnic respiratory failure, chronic Current Visit: Yes Status: Chronic Neuro/psych: Sedated (turned off this AM) and intubated. Follows commands. Pulm: Intubated and on mechanical ventilation. Plan to extubate today. Cardio: Continue aspirin, statin, beta matilda. Echocardiogram EF 50%, hypokinesis of the basal inferior wall, moderate concentric left ventricular hypertrophy, mildly dilated right ventricle with normal systolic function, mildly dilated left atrium, mildly dilated right atrium. Cardiology on board, appreciate recommendations. FEN-GI: GI prophylaxis on board with Protonix. On tube feeds. --Patient with history of dysphasia. Will be placed on a dysphagia diet (i.e. soft chopped solids and thin liquids) when appropriate. Renal: HENRY on CKD, sCr improved. Nephrology on board, appreciate recommendations. ID: Patient met SIRS criteria on admission due to tachypnea and neutrophilic leukocytosis. Blood cultures preliminary results negative, sputum culture final result normal upper respiratory tract alanna, no pathogens isolated. Vancomycin and cefepime. Antibiotics day 4. Stop vancomycin. Stop cefepime tomorrow after completion of 5 antibiotic days. Heme/Onc: Anemia and thrombocytopenia, trending down. No obvious source of bleed. Continue to monitor. DVT prophylaxis changed from heparin to SCDs. Endocrine: Diabetes, sliding scale insulin. Integ/MSK: ICU skin care protocol Code: Full Code (2) Hyperkalemia Current Visit: Yes Status: Acute (3) SIRS (systemic inflammatory response syndrome) Current Visit: Yes Status: Acute (4) Acute kidney injury superimposed on CKD Current Visit: Yes Status: Suspected CKD stage unknown. Per [place] records, patient is not on metformin for diabetes due to eGFR <45. (5) Angioedema Current Visit: Yes Status: Resolved Resolved Qualifiers: Encounter type: subsequent encounter Qualified Code(s): T78.3XXD - Angioneurotic edema, subsequent encounter (6) CHF (congestive heart failure) Current Visit: Yes Status: Chronic Qualifiers: Congestive heart failure type: unspecified congestive heart failure type Congestive heart failure chronicity: unspecified congestive heart failure chronicity Qualified Code(s): I50.9 - Heart failure, unspecified (7) COPD (chronic obstructive pulmonary disease) Current Visit: Yes Status: Chronic Qualifiers: COPD type: unspecified COPD Qualified Code(s): J44.9 - Chronic obstructive pulmonary disease, unspecified (8) Diabetes Current Visit: Yes Status: Chronic Qualifiers: Diabetes mellitus type: type 2 Diabetes mellitus complication status: with unspecified complications 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 Patient did not tolerate CPAP this morning. Objective PUL Vital signs: Last Vital Signs Temp 97.6 F 11/11/16 04:44 Pulse 68 11/11/16 08:00 Resp 14 11/11/16 08:00 BP 163/79 11/11/16 08:00 Pulse Ox 98 11/11/16 08:00 General appearance: other (Intubated on mechanical ventilation, sedation has just been turned off) Eyes: nonicteric ENT: oropharynx moist Neck: supple Effort: normal Auscultation: bilateral: clear Cardiovascular: regular rate and rhythm Gastrointestinal: normoactive bowel sounds, soft, non-tender Musculoskeletal: other (Moving all 4 extremities) other (Follows commands ) Ventilator Settings Ventilator Settings: Ventilator Settings, Last 8 Hours Ventilator Mode VC+ Ventilator Mode VC+ Ventilator Mode VC+ Ventilator Mode VC+ Ventilator Mode VC+ Ventilator Mode VC+ Ventilator Tidal Volume 400 Setting Ventilator Tidal Volume 400 Setting Ventilator Tidal Volume 400 Setting Ventilator Tidal Volume 400 Setting Ventilator Tidal Volume 400 Setting Ventilator Tidal Volume 400 Setting Ventilator Respiratory Rate 12 Setting Ventilator Respiratory Rate 12 Setting Ventilator Respiratory Rate 12 Setting Ventilator Respiratory Rate 12 Setting Ventilator Respiratory Rate 12 Setting Ventilator Respiratory Rate 12 Setting Actual Respiratory Rate 14 Actual Respiratory Rate 18 Actual Respiratory Rate 12 Actual Respiratory Rate 12 Actual Respiratory Rate 12 Positive End Expiratory 5 Pressure Positive End Expiratory 5 Pressure Positive End Expiratory 5 Pressure Positive End Expiratory 5 Pressure Positive End Expiratory 5 Pressure Positive End Expiratory 5 Pressure Peak Inspiratory Airway 22 Pressure Peak Inspiratory Airway 24 Pressure Peak Inspiratory Airway 21 Pressure Peak Inspiratory Airway 24 Pressure Peak Inspiratory Airway 21 Pressure Results - Laboratory Findings CBC and BMP: 11/11/16 04:20 11/11/16 04:20 ABG ABG pH 7.35 pH Units (7.32-7.45) 11/11/16 06:15 ABG pCO2 72 mmHg (35-45) H* 11/11/16 06:15 ABG pO2 93 mmHg (85-104) 11/11/16 06:15 ABG O2 Saturation 97 % (95-98) 11/11/16 06:15 PT/INR, D-dimer PT 11.2 Seconds (9.4-12.1) 11/08/16 12:28 Abnormal lab findings: Abnormal lab results RBC 2.60 M/mcL (4.19-5.50) L 11/11/16 04:20 Hgb 7.8 g/dL (12.9-16.9) L 11/11/16 04:20 Hct 26.0 % (37.5-50.1) L 11/11/16 04:20 MCHC 30.0 g/dL (31.6-35.5) L 11/11/16 04:20 RDW 16.1 % (11.5-14.5) H 11/11/16 04:20 Plt Count 88 K/mcL (140-400) L 11/11/16 04:20 Platelet Estimate Decreased (Normal) L 11/10/16 03:28 Immature Plt Fraction 8.7 % (1.1-6.1) H 11/11/16 04:20 Hypochromasia Present (Not Present) A 11/10/16 03:28 APTT 25.4 Seconds (26.0-36.0) L 11/08/16 12:28 ABG pCO2 72 mmHg (35-45) H* 11/11/16 06:15 ABG HCO3 39.7 mEQ/L (21-27) H 11/11/16 06:15 ABG Total CO2 41.9 mEq/L (20-26) H 11/11/16 06:15 ABG Base Excess 12.4 mEq/L (-2.0 to 3.0) H 11/11/16 06:15 Carbon Dioxide 32 mEq/L (19-29) H 11/11/16 04:20 BUN 68 mg/dL (8-26) H 11/11/16 04:20 Creatinine 1.87 mg/dL (0.72-1.25) H 11/11/16 04:20 Est GFR ( Amer) 43 (> 60) L 11/11/16 04:20 Est GFR (Non-Af Amer) 36 (> 60) L 11/11/16 04:20 BUN/Creatinine Ratio 36 (6-26) H 11/11/16 04:20 Glucose 127 mg/dL (70-99) H 11/11/16 04:20 POC Glucose 155 (58-89) H 11/10/16 23:17 Calculated Osmolality 309 (280-300) H 11/11/16 04:20 Calcium 8.2 mg/dL (8.6-10.8) L 11/11/16 04:20 Ionized Calcium 1.03 mmol/L (1.15-1.35) L 11/10/16 09:30 Troponin I 1.17 ng/mL (0-0.03) H* 11/10/16 09:30 B-Natriuretic Peptide 1330 pg/mL (0-100) H 11/08/16 12:28 Urine Clarity Cloudy (Clear) A 11/08/16 16:22 Urine Protein >=300 mg/dL (Neg-Trace) H 11/08/16 16:22 Urine Glucose (UA) 250 mg/dL (Normal) H 11/08/16 16:22 Ur Squamous Epith Cells Many per lpf (None-Few) H 11/08/16 16:22 Microalb/Creat Ratio 2883 (0-30) H 11/09/16 13:30 Protein/Creatinin Ratio 4.28 mg/mg (0-0.20) H 11/09/16 13:30 Urine Total Protein 77 mg/dL (1-14) H 11/09/16 13:30 Vancomycin Trough 29.7 mcg/mL (10-20) H* 11/10/16 18:54 - Microbiology Findings Microbiology Findings: Microbiology, Last 48 Hours 11/09/16 10:20 Sputum Culture - Final Sputum 11/08/16 17:21 Blood Culture - Preliminary Peripheral Venipuncture No growth. 11/08/16 17:21 Blood Culture - Preliminary Peripheral Venipuncture No growth. - Clinical Findings Intake & Output: Intake & Output 11/10/16 11/11/16 11/11/16 23:59 07:59 15:59 Intake Total 569 / 569 103 / 103 Output Total 525 / 525 525 / 525 Balance 44 / 44 -422 / -422 Weight 80.1 kg Consult Discharge Plan - Plan [facility]: [facility] Provider[facility] - <Raj Doyle M - Last Filed: 11/11/16 16:40> Date of Encounter: 11/11/16 Objective PUL Vital signs: Last Vital Signs Temp 98.3 F 11/11/16 16:00 Pulse 68 11/11/16 16:00 Resp 10 11/11/16 16:08 BP 193/86 11/11/16 16:00 Pulse Ox 98 11/11/16 16:08 Ventilator Settings Ventilator Settings: Ventilator Settings, Last 8 Hours Ventilator Mode CPAP Ventilator Mode CPAP Ventilator Mode CPAP Ventilator Mode VC+ Ventilator Mode VC+ Ventilator Mode VC+ Ventilator Tidal Volume 400 Setting Ventilator Tidal Volume 400 Setting Ventilator Tidal Volume 400 Setting Ventilator Respiratory Rate 12 Setting Ventilator Respiratory Rate 12 Setting Ventilator Respiratory Rate 12 Setting Actual Respiratory Rate 10 Actual Respiratory Rate 11 Actual Respiratory Rate 8 Actual Respiratory Rate 14 Actual Respiratory Rate 12 Actual Respiratory Rate 12 Positive End Expiratory 5 Pressure Positive End Expiratory 5 Pressure Positive End Expiratory 5 Pressure Positive End Expiratory 5 Pressure Positive End Expiratory 5 Pressure Positive End Expiratory 5 Pressure Peak Inspiratory Airway 13 Pressure Peak Inspiratory Airway 13 Pressure Peak Inspiratory Airway 13 Pressure Peak Inspiratory Airway 26 Pressure Peak Inspiratory Airway 27 Pressure Peak Inspiratory Airway 25 Pressure Results - Laboratory Findings CBC and BMP: 11/11/16 04:20 11/11/16 04:20 ABG ABG pH 7.35 pH Units (7.32-7.45) 11/11/16 06:15 ABG pCO2 72 mmHg (35-45) H* 11/11/16 06:15 ABG pO2 93 mmHg (85-104) 11/11/16 06:15 ABG O2 Saturation 97 % (95-98) 11/11/16 06:15 PT/INR, D-dimer PT 11.2 Seconds (9.4-12.1) 11/08/16 12:28 Abnormal lab findings: Abnormal lab results RBC 2.60 M/mcL (4.19-5.50) L 11/11/16 04:20 Hgb 7.8 g/dL (12.9-16.9) L 11/11/16 04:20 Hct 26.0 % (37.5-50.1) L 11/11/16 04:20 MCHC 30.0 g/dL (31.6-35.5) L 11/11/16 04:20 RDW 16.1 % (11.5-14.5) H 11/11/16 04:20 Plt Count 88 K/mcL (140-400) L 11/11/16 04:20 Platelet Estimate Decreased (Normal) L 11/10/16 03:28 Immature Plt Fraction 8.7 % (1.1-6.1) H 11/11/16 04:20 Hypochromasia Present (Not Present) A 11/10/16 03:28 APTT 25.4 Seconds (26.0-36.0) L 11/08/16 12:28 ABG pCO2 72 mmHg (35-45) H* 11/11/16 06:15 ABG HCO3 39.7 mEQ/L (21-27) H 11/11/16 06:15 ABG Total CO2 41.9 mEq/L (20-26) H 11/11/16 06:15 ABG Base Excess 12.4 mEq/L (-2.0 to 3.0) H 11/11/16 06:15 Carbon Dioxide 32 mEq/L (19-29) H 11/11/16 04:20 BUN 68 mg/dL (8-26) H 11/11/16 04:20 Creatinine 1.87 mg/dL (0.72-1.25) H 11/11/16 04:20 Est GFR ( Amer) 43 (> 60) L 11/11/16 04:20 Est GFR (Non-Af Amer) 36 (> 60) L 11/11/16 04:20 BUN/Creatinine Ratio 36 (6-26) H 11/11/16 04:20 Glucose 127 mg/dL (70-99) H 11/11/16 04:20 POC Glucose 155 (58-89) H 11/10/16 23:17 Calculated Osmolality 309 (280-300) H 11/11/16 04:20 Calcium 8.2 mg/dL (8.6-10.8) L 11/11/16 04:20 Ionized Calcium 1.07 mmol/L (1.15-1.35) L 11/11/16 09:03 Troponin I 0.86 ng/mL (0-0.03) H* 11/11/16 09:03 B-Natriuretic Peptide 169 pg/mL (0-100) H 11/11/16 09:03 Urine Clarity Cloudy (Clear) A 11/08/16 16:22 Urine Protein >=300 mg/dL (Neg-Trace) H 11/08/16 16:22 Urine Glucose (UA) 250 mg/dL (Normal) H 11/08/16 16:22 Ur Squamous Epith Cells Many per lpf (None-Few) H 11/08/16 16:22 Microalb/Creat Ratio 2883 (0-30) H 11/09/16 13:30 Protein/Creatinin Ratio 4.28 mg/mg (0-0.20) H 11/09/16 13:30 Urine Total Protein 77 mg/dL (1-14) H 11/09/16 13:30 Vancomycin Trough 29.7 mcg/mL (10-20) H* 11/10/16 18:54 - Microbiology Findings Microbiology Findings: Microbiology, Last 48 Hours 11/09/16 10:20 Sputum Culture - Final Sputum 11/08/16 17:21 Blood Culture - Preliminary Peripheral Venipuncture No growth. 11/08/16 17:21 Blood Culture - Preliminary Peripheral Venipuncture No growth. - Clinical Findings Intake & Output: Intake & Output 11/11/16 11/11/16 11/11/16 07:59 15:59 23:59 Intake Total 201 / 201 60 / 60 Output Total 525 / 525 950 / 950 Balance -324 / -324 -890 / -890 Weight 80.1 kg - Attending Attestation I examined this patient and my medical decision-making was reviewed with the MULTIMEDIA JOURNALIST/PA/Advanced Practice Nurse/Resident Physician. I agree with the documented findings, disposition and treatment plan as described except to the extent set forth below. Patient seen and examined. Labs, radiology, chart personally reviewed. 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 Patient has history of apneas and will be treated with an NIV. Discussed with ENT to consider scoping of her airway. Cardiovascular: Hypertension and his home medicine has been resumed. GI: Nutrition per dietary and GI prophylaxis per routine Heme: DVT prophylaxis per routine Renal; urine out put and renal funtion reviewed Endorcine: blood glucose is monitored Lines: all lines checked and no evidence of infections Skin: skin care to prevent pressure ulcers per nursing routine care Continue monitoring can ICU for next 24 hours.
[2016-11-11] MEDS: Budesonide/Formoterol 160/4.5 MDI IH SCH ×2 (10:03→21:40)
--- NOTE | 2016-11-11 10:24 | Electrocardiograph Report ---
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
--- NOTE | 2016-11-11 10:32 | Cardiology Progress Note ---
Date of Encounter: 11/11/16 Time of Encounter: 08:46 Assessment and Plan (1) Elevated troponin Current Visit: Yes Status: Acute Patient's troponi is reduced from 1.17 yesterday to 0.86 today. Patient's BNP which was 1330 3 days ago currently 169 today. Echocardiogram shows improvement of patient's LVEF which is currently 50%. Previously patient's LVEF of 35%. Patient's troponins appear to be secondary to demand ischemia with correction of troponins as patient's electrolyte abnormalities, respiratory issues and kidney issues continue to improve, but we will continue to follow patient's progress to monitor the need for cardiac catheterization after patient's other medical issues have been taken cared of. No further recommendations from cardiology at this time. (2) CHF (congestive heart failure) Current Visit: Yes Status: Chronic BNP today 169. Continue betablocker. No ACEi/ARB due to angioedema (unclear etiology) and HENRY, hyperkalemia. Please continue to monitor and diurese as needed. Follow-up with [facility] in the outpatient setting. Qualifiers: Congestive heart failure type: unspecified congestive heart failure type Congestive heart failure chronicity: unspecified congestive heart failure chronicity Qualified Code(s): I50.9 - Heart failure, unspecified Discussion w patient/family: The assessment and plan as outlined above was discussed with the patient and/or family members who expressed understanding and agreement. All questions were answered. Thank you for involving us in the care of your patient. Please call with any questions. Subjective Principal diagnosis: Hyperkalemia, angioedema, acute on chronic hypercarbic respiratory failure Interval history: Patient's 71-year-old male who is in ICU for respiratory arrest currently intubated but unsedated and alert. Patient was seen and examined at bedside this a.m. and is able to indicate with head nod that he understands questions during physical. Patient denies any current chest pain. He does admit to discomfort secondary to ET tube. Objective Vital Signs, Last 4 Hours Temp Pulse Resp BP Pulse Ox 11/11/16 10:04 12 92 11/11/16 10:00 60 12 142/60 99 11/11/16 09:27 98.3 F 11/11/16 09:00 98.3 F 62 12 152/59 96 11/11/16 08:28 16 94 11/11/16 08:00 68 14 163/79 98 11/11/16 07:00 66 18 166/84 98 General: No Apparent Distress HEENT: Atraumatic, Mucus Membranes Moist Neck: No JVD Cardiac: Reg Rate and Rhythm, Normal S1 and S2 Lungs: Other (Mechanical ventilation) Neuro: Alert and responsive Abdomen: Soft, Non-Tender Skin: No rashes noted on visualized skin Musculoskeletal: No Chest Wall Tenderness Extremities: No Clubbing, No Cyanosis, Normal Pulses, Other (Patient has edema of the extremities 4 nonpitting) Results 11/11/16 04:20 11/11/16 04:20 Lab Results 11/11/16 11/11/16 11/11/16 04:20 04:20 09:03 WBC 5.3 D Hgb 7.8 L Hct 26.0 L Plt Count 88 L Sodium 139 Potassium 4.1 Chloride 100 Carbon Dioxide 32 H BUN 68 H Creatinine 1.87 H Glucose 127 H Calcium 8.2 L Magnesium 2.0 Troponin I 0.86 H* B-Natriuretic Peptide 11/11/16 09:03 WBC Hgb Hct Plt Count Sodium Potassium Chloride Carbon Dioxide BUN Creatinine Glucose Calcium Magnesium Troponin I B-Natriuretic Peptide 169 H - Imaging and Cardiology Chest Xray: report reviewed (Chest x-ray taken 11/09/2016 shows bibasilar airspace disease with a right pleural effusion, left posterolateral rib fractures with evidence of prior augmentation of lower thoracic vertebral bodies. Endotracheal tube placement with tip 4 cm above ozzie and an enteric tube courses esophagus and stomach with its tip below the field of view.) Consult Discharge Plan - Plan [facility]errals: [facility] [Primary Care Provider] -
[2016-11-11] MEDS: Calcium Gluconate 1,000 MG in D5% in Water 100 ML IVPB PRN (12:59)
--- NOTE | 2016-11-11 13:03 | Nephrology Progress Note ---
Date of Encounter: 11/11/16 Time of Encounter: 13:06 - Assessment and Plan (1) Hyperkalemia Current Visit: Yes Status: Acute Patient admitted with potassium of 7.1. Received calcium gluconate, insulin/D5 , bicarbonate, and kayexalate. Potassium normal today at 4.1 Continue to monitor potassium and magnesium (2) Acute kidney injury superimposed on CKD Current Visit: Yes Status: Suspected Patient presented with nonoliguric HENRY with underlying chronic kidney disease. Only documentation we have shows SCr of 1.61 and GFR 45 as of 10/31/2016. Creatinine stable today 2.02 > 1.85 > 2.07 > 1.87. Urine shows proteinuria consistent with nephrotic kidney disease believed secondary to possible DM. SPEP and UPEP pending. Patient does not appear to be fluid overloaded on exam. Would consider decreasing diuresis. Continue to monitor kidney function and UOP. No indication for acute dialysis at this time. Recommend renal protective strategy: renal dose medications and avoid nephrotoxic agents as possible. Recommend vanco dosing by blood levels. (3) Angioedema Current Visit: Yes Status: Resolved Management per primary team Qualifiers: Encounter type: subsequent encounter Qualified Code(s): T78.3XXD - Angioneurotic edema, subsequent encounter (4) CHF (congestive heart failure) Current Visit: Yes Status: Chronic Management per primary team. However, Patient does not appear to be fluid overloaded on exam so would consider backing off on diuresis. Qualifiers: Congestive heart failure type: unspecified congestive heart failure type Congestive heart failure chronicity: unspecified congestive heart failure chronicity Qualified Code(s): I50.9 - Heart failure, unspecified Subjective Principal diagnosis: Hyperkalemia, angioedema, acute on chronic hypercarbic respiratory failure Interval history: Mr Gregory Barron is 71yo male admitted with angioedema and respiratory distress. Nephrology consulted for hyperkalemia with potassium of 7.1 on admission and acute kidney injury. No acute events overnight. Afebrile, vital signs within normal limits. On exam , patient was intubated on vent settings RR12, TV400, 45% FiO2, and PEEP 5.0. Sedation was off, patient minimally responsive. Creatinine stable 2.02 > 1.85 > 2.07 > 1.87. Potassium appropriate today at 4.1. On exam, lungs with bilaterally rhonchi. Abdomen soft. No peripheral edema. Objective - Vital Signs Vital signs: Vital Signs Temp Pulse Resp BP Pulse Ox 11/11/16 12:57 73 10 144/52 95 11/11/16 12:00 73 10 144/52 95 11/11/16 11:40 98.4 F 11/11/16 11:12 9 91 11/11/16 11:00 62 8 136/52 92 11/11/16 10:53 62 11/11/16 10:49 61 12 139/58 95 11/11/16 10:04 12 92 11/11/16 10:00 60 12 142/60 99 11/11/16 09:27 98.3 F 11/11/16 09:00 98.3 F 62 12 152/59 96 11/11/16 08:28 16 94 11/11/16 08:00 68 14 163/79 98 11/11/16 07:00 66 18 166/84 98 11/11/16 06:00 64 12 127/63 95 11/11/16 05:43 12 140/65 94 11/11/16 05:00 68 12 125/62 95 11/11/16 04:44 97.6 F 11/11/16 04:18 12 134/60 99 11/11/16 03:00 65 12 134/64 98 11/11/16 02:11 12 128/58 98 11/11/16 02:00 63 12 128/58 98 11/11/16 01:13 63 12 124/54 99 11/11/16 00:19 98.2 F 11/11/16 00:10 12 117/53 98 11/11/16 00:00 61 12 117/53 98 11/10/16 23:00 63 12 153/66 95 11/10/16 22:25 14 151/76 98 11/10/16 22:00 61 12 151/76 94 11/10/16 21:02 12 135/79 96 11/10/16 21:00 65 12 135/79 97 11/10/16 20:53 98.1 F 11/10/16 20:00 62 13 129/68 96 11/10/16 19:00 70 12 139/74 98 11/10/16 18:00 62 12 142/74 100 11/10/16 17:10 12 131/59 100 11/10/16 17:00 98.4 F 62 12 139/60 96 11/10/16 16:00 98.4 F 62 12 115/60 96 11/10/16 15:41 12 120/48 96 11/10/16 15:00 62 12 142/57 95 11/10/16 14:00 65 12 131/57 95 11/10/16 13:20 12 125/59 97 11/10/16 13:00 65 14 129/58 97 Intake and Output 11/10/16 11/11/16 11/11/16 23:59 07:59 15:59 Intake Total 569 / 569 201 / 201 0 / 0 Output Total 525 / 525 525 / 525 550 / 550 Balance 44 / 44 -324 / -324 -550 / -550 Intake: IV Fluids 437 / 437 83 / 83 FentaNYL (PF) 1,000 MCG 127 / 127 53 / 53 In 0.9 % Sodium Chloride 80 ML @ 50 MCG/HR 5 mls/ hr IVC CONT [facility] Rx#: [id number] Diprivan 1,000 mg In 100 100 / 100 30 / 30 ml @ 20 MCG/KG/MIN 9.6 mls/hr IVC .[id number] [facility] Rx#:[id number] Calcium Gluconate 1,000 110 / 110 MG In Dextrose 5% 100 ML @ 50 mls/hr IVPB Q6HR [facility] Rx#:[id number] Maxipime 1,000 MG In 100 / 100 Dextrose 5% (Minibag+) 100 ML 100 ML @ 200 mls/ hr IVPB Q24H [facility] Rx#: [id number] Tube Feeding 82 / 82 98 / 98 Free Water Intake Amount 50 / 50 20 / 20 0 / 0 Output: Catheter 525 / 525 525 / 525 550 / 550 Other: Weight 80.1 kg Blood Glucose* 155 113 Patient Weight 11/11/16 23:59 Weight 80.1 kg - General Appearance Exam: Intubated. Minimally responsive on exam with sedation off. Additional Comments: ET tube inplace Neck: Present: no JVD Respiratory: Present: rhonchi Cardiology: Present: no murmurs, no rub, no gallops, regular rate, regular rhythm Gastrointestinal: Present: normoactive bowel sounds, no tenderness, no guarding Integumentary: Present: warm and dry Additional Comments: Minimally responsive with sedation off. - Lab 11/11/16 04:20 11/11/16 04:20 Most recent lab results ABG pH 7.35 pH Units (7.32-7.45) 11/11/16 06:15 ABG pCO2 72 mmHg (35-45) H* 11/11/16 06:15 ABG pO2 93 mmHg (85-104) 11/11/16 06:15 ABG HCO3 39.7 mEQ/L (21-27) H 11/11/16 06:15 ABG O2 Saturation 97 % (95-98) 11/11/16 06:15 Calcium 8.2 mg/dL (8.6-10.8) L 11/11/16 04:20 Phosphorus 4.4 mg/dL (2.3-4.7) 11/09/16 05:15 Magnesium 2.0 mg/dL (1.6-2.6) 11/11/16 04:20 Urine Creatinine 18 mg/dL 11/09/16 13:30 Urine Total Protein 77 mg/dL (1-14) H 11/09/16 13:30 Consult Discharge Plan - Plan [facility]errals: [facility] [Primary Care Provider] -
[2016-11-11] MEDS: *HR* Metoprolol 5 MG/5 ML VIAL IVP PRN ×2 (14:44→20:36)
[2016-11-11] MEDS ORDERED: hydrALAZINE 10 MG TABLET PO PRN (15:21)
[2016-11-11] MEDS: hydrALAZINE 25 MG TABLET PO SCH ×3 (16:01→23:05)
[2016-11-11] MEDS: amLODIPine 5 MG TABLET PO SCH (16:01)
[2016-11-11] MEDS ORDERED: Aminoglycoside Consult 1 EACH MC ONE (16:13)
[2016-11-11] MEDS: Cefepime HCl 1,000 MG in D5% in Water (Mini-Bag+) 100 ML IVPB SCH (17:44)
[2016-11-11] MEDS ORDERED: Insulin LISPRO 300 UNITS/3 ML VIAL SQ SCH (21:00)
[2016-11-12] MEDS: *HR* Metoprolol 5 MG/5 ML VIAL IVP PRN (03:07)
[2016-11-12 03:28] LABS: Basophils % 0.2 %; Hemoglobin 8.7 g/dL (12.9-16.9); Immature Granulocytes % 0.6 % (0-4); Lymphocytes % 6.4 %; Red Cell Distribution Width 15.7 % (11.5-14.5); Segmented Neutrophils % 86.6 %
[2016-11-12 03:30] LABS: Eosinophils % 0.6 %; Hematocrit 28.3 % (37.5-50.1); Immature Platelets 7.2 % (1.1-6.1); Lymphocytes # 0.4 K/mcL (0.6-4.6); Mean Corpuscular HGB Conc 30.7 g/dL (31.6-35.5); Mean Corpuscular Hemoglobin 30.4 pg (28.0-33.3); Mean Platelet Volume 12.3 fL (9.4-12.4); Monocytes # 0.4 K/mcL (0.0-1.3); Monocytes % 5.6 %; Neutrophils # 5.5 K/mcL (1.6-8.9); Platelet Count 90 K/mcL (140-400); Red Blood Count 2.86 M/mcL (4.19-5.50)
[2016-11-12] MEDS: Ipratropium/Albuterol Neb 3 ML IH SCH ×4 (03:34→23:01)
[2016-11-12 03:39] LABS: Calcium 8.9 mg/dL (8.6-10.8); Potassium 3.9 mEq/L (3.5-4.5)
[2016-11-12] MEDS: hydrALAZINE 25 MG TABLET PO SCH ×3 (06:24→17:05)
--- NOTE | 2016-11-12 08:03 | Pulmonology Progress Note ---
<Ellen Cook - Last Filed: 11/12/16 08:00> Date of Encounter: 11/12/16 Time of Encounter: 08:03 Assessment and Plan (1) Hypercapnic respiratory failure, chronic Current Visit: Yes Status: Chronic Transfer to [facility] telemetry. Will need BiPAP PRN and QHS. Neuro/psych: Awake and alert. Follows commands. Pulm: Currently on BiPAP. Plan to switch to nasal cannula. Cardio: Continue aspirin, statin, beta matilda. Echocardiogram EF 50%, hypokinesis of the basal inferior wall, moderate concentric left ventricular hypertrophy, mildly dilated right ventricle with normal systolic function, mildly dilated left atrium, mildly dilated right atrium. Cardiology on board, appreciate recommendations. FEN-GI: GI prophylaxis on board with Protonix. Dysphagia diet. Renal: HENRY on CKD, sCr improved. Nephrology on board, appreciate recommendations. ID: Patient met SIRS criteria on admission due to tachypnea and neutrophilic leukocytosis. Blood cultures preliminary results negative, sputum culture final result normal upper respiratory tract alanna, no pathogens isolated. Cefepime will be stopped after today due to completion of 5 days of antibiotics. Heme/Onc: Anemia and thrombocytopenia, stable. No obvious source of bleed. Continue to monitor. DVT prophylaxis SCDs. Endocrine: Diabetes, sliding scale insulin. Integ/MSK: ICU skin care protocol Code: Full Code (2) Hyperkalemia Current Visit: Yes Status: Acute (3) SIRS (systemic inflammatory response syndrome) Current Visit: Yes Status: Acute (4) Acute kidney injury superimposed on CKD Current Visit: Yes Status: Suspected CKD stage unknown. Per [place] records, patient is not on metformin for diabetes due to eGFR <45. (5) Angioedema Current Visit: Yes Status: Resolved Resolved Qualifiers: Encounter type: subsequent encounter Qualified Code(s): T78.3XXD - Angioneurotic edema, subsequent encounter (6) CHF (congestive heart failure) Current Visit: Yes Status: Chronic Qualifiers: Congestive heart failure type: unspecified congestive heart failure type Congestive heart failure chronicity: unspecified congestive heart failure chronicity Qualified Code(s): I50.9 - Heart failure, unspecified (7) COPD (chronic obstructive pulmonary disease) Current Visit: Yes Status: Chronic Qualifiers: COPD type: unspecified COPD Qualified Code(s): J44.9 - Chronic obstructive pulmonary disease, unspecified (8) Diabetes Current Visit: Yes Status: Chronic Qualifiers: Diabetes mellitus type: type 2 Diabetes mellitus complication status: with unspecified complications Diabetes mellitus intermediate insulin use: with cardboard cutter use Qualified Code(s): E11.8 - Type 2 diabetes mellitus with unspecified complications; 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 States no pain. Objective PUL Vital signs: Last Vital Signs Temp 97.6 F 11/12/16 07:41 Pulse 63 11/12/16 06:00 Resp 9 11/12/16 06:00 BP 177/90 11/12/16 06:00 Pulse Ox 96 11/12/16 06:00 General appearance: no acute distress Eyes: nonicteric ENT: oropharynx moist Neck: supple Effort: normal Auscultation: bilateral: clear Cardiovascular: regular rate and rhythm Gastrointestinal: normoactive bowel sounds, soft, non-tender Musculoskeletal: no deformities Results - Laboratory Findings CBC and BMP: 11/12/16 03:15 11/12/16 03:15 ABG ABG pH 7.35 pH Units (7.32-7.45) 11/11/16 06:15 ABG pCO2 72 mmHg (35-45) H* 11/11/16 06:15 ABG pO2 93 mmHg (85-104) 11/11/16 06:15 ABG O2 Saturation 97 % (95-98) 11/11/16 06:15 PT/INR, D-dimer PT 11.2 Seconds (9.4-12.1) 11/08/16 12:28 Abnormal lab findings: Abnormal lab results RBC 2.86 M/mcL (4.19-5.50) L 11/12/16 03:15 Hgb 8.7 g/dL (12.9-16.9) L 11/12/16 03:15 Hct 28.3 % (37.5-50.1) L 11/12/16 03:15 MCHC 30.7 g/dL (31.6-35.5) L 11/12/16 03:15 RDW 15.7 % (11.5-14.5) H 11/12/16 03:15 Plt Count 90 K/mcL (140-400) L 11/12/16 03:15 Lymphocytes # 0.4 K/mcL (0.6-4.6) L 11/12/16 03:15 Platelet Estimate Decreased (Normal) L 11/10/16 03:28 Immature Plt Fraction 7.2 % (1.1-6.1) H 11/12/16 03:15 Hypochromasia Present (Not Present) A 11/10/16 03:28 APTT 25.4 Seconds (26.0-36.0) L 11/08/16 12:28 ABG pCO2 72 mmHg (35-45) H* 11/11/16 06:15 ABG HCO3 39.7 mEQ/L (21-27) H 11/11/16 06:15 ABG Total CO2 41.9 mEq/L (20-26) H 11/11/16 06:15 ABG Base Excess 12.4 mEq/L (-2.0 to 3.0) H 11/11/16 06:15 Carbon Dioxide 33 mEq/L (19-29) H 11/12/16 03:15 BUN 54 mg/dL (8-26) H 11/12/16 03:15 Creatinine 1.59 mg/dL (0.72-1.25) H 11/12/16 03:15 Est GFR ( Amer) 52 (> 60) L 11/12/16 03:15 Est GFR (Non-Af Amer) 43 (> 60) L 11/12/16 03:15 BUN/Creatinine Ratio 34 (6-26) H 11/12/16 03:15 Glucose 123 mg/dL (70-99) H 11/12/16 03:15 POC Glucose 223 (58-89) H 11/11/16 20:01 Calculated Osmolality 312 (280-300) H 11/12/16 03:15 Ionized Calcium 1.09 mmol/L (1.15-1.35) L 11/11/16 20:07 Troponin I 0.86 ng/mL (0-0.03) H* 11/11/16 09:03 B-Natriuretic Peptide 169 pg/mL (0-100) H 11/11/16 09:03 Urine Clarity Cloudy (Clear) A 11/08/16 16:22 Urine Protein >=300 mg/dL (Neg-Trace) H 11/08/16 16:22 Urine Glucose (UA) 250 mg/dL (Normal) H 11/08/16 16:22 Ur Squamous Epith Cells Many per lpf (None-Few) H 11/08/16 16:22 Microalb/Creat Ratio 2883 (0-30) H 11/09/16 13:30 Protein/Creatinin Ratio 4.28 mg/mg (0-0.20) H 11/09/16 13:30 Urine Total Protein 77 mg/dL (1-14) H 11/09/16 13:30 Vancomycin Trough 29.7 mcg/mL (10-20) H* 11/10/16 18:54 - Microbiology Findings Microbiology Findings: Microbiology, Last 48 Hours 11/09/16 10:20 Sputum Culture - Final Sputum 11/08/16 17:21 Blood Culture - Preliminary Peripheral Venipuncture No growth. 11/08/16 17:21 Blood Culture - Preliminary Peripheral Venipuncture No growth. - Clinical Findings Intake & Output: Intake & Output 11/11/16 11/12/16 11/12/16 23:59 07:59 15:59 Intake Total 100 / 100 Output Total 1700 / 1700 Balance 100 / 100 -1700 / -1700 Weight 76.9 kg Consult Discharge Plan - Plan [facility]errals: [facility] [Primary Care Provider] - <Raj Doyle - Last Filed: 11/12/16 17:29> Date of Encounter: 11/12/16 Objective PUL Vital signs: Last Vital Signs Temp 98.0 F 11/12/16 16:40 Pulse 65 11/12/16 16:40 Resp 18 11/12/16 16:40 BP 169/63 11/12/16 16:40 Pulse Ox 100 11/12/16 16:40 Results - Laboratory Findings CBC and BMP: 11/12/16 03:15 11/12/16 03:15 ABG ABG pH 7.35 pH Units (7.32-7.45) 11/11/16 06:15 ABG pCO2 72 mmHg (35-45) H* 11/11/16 06:15 ABG pO2 93 mmHg (85-104) 11/11/16 06:15 ABG O2 Saturation 97 % (95-98) 11/11/16 06:15 PT/INR, D-dimer PT 11.2 Seconds (9.4-12.1) 11/08/16 12:28 Abnormal lab findings: Abnormal lab results RBC 2.86 M/mcL (4.19-5.50) L 11/12/16 03:15 Hgb 8.7 g/dL (12.9-16.9) L 11/12/16 03:15 Hct 28.3 % (37.5-50.1) L 11/12/16 03:15 MCHC 30.7 g/dL (31.6-35.5) L 11/12/16 03:15 RDW 15.7 % (11.5-14.5) H 11/12/16 03:15 Plt Count 90 K/mcL (140-400) L 11/12/16 03:15 Lymphocytes # 0.4 K/mcL (0.6-4.6) L 11/12/16 03:15 Platelet Estimate Decreased (Normal) L 11/10/16 03:28 Immature Plt Fraction 7.2 % (1.1-6.1) H 11/12/16 03:15 Hypochromasia Present (Not Present) A 11/10/16 03:28 APTT 25.4 Seconds (26.0-36.0) L 11/08/16 12:28 ABG pCO2 72 mmHg (35-45) H* 11/11/16 06:15 ABG HCO3 39.7 mEQ/L (21-27) H 11/11/16 06:15 ABG Total CO2 41.9 mEq/L (20-26) H 11/11/16 06:15 ABG Base Excess 12.4 mEq/L (-2.0 to 3.0) H 11/11/16 06:15 Carbon Dioxide 33 mEq/L (19-29) H 11/12/16 03:15 BUN 54 mg/dL (8-26) H 11/12/16 03:15 Creatinine 1.59 mg/dL (0.72-1.25) H 11/12/16 03:15 Est GFR ( Amer) 52 (> 60) L 11/12/16 03:15 Est GFR (Non-Af Amer) 43 (> 60) L 11/12/16 03:15 BUN/Creatinine Ratio 34 (6-26) H 11/12/16 03:15 Glucose 123 mg/dL (70-99) H 11/12/16 03:15 POC Glucose 226 (58-89) H 11/12/16 16:52 Calculated Osmolality 312 (280-300) H 11/12/16 03:15 Ionized Calcium 1.09 mmol/L (1.15-1.35) L 11/11/16 20:07 Troponin I 0.65 ng/mL (0-0.03) H* 11/12/16 14:30 B-Natriuretic Peptide 169 pg/mL (0-100) H 11/11/16 09:03 Urine Clarity Cloudy (Clear) A 11/08/16 16:22 Urine Protein >=300 mg/dL (Neg-Trace) H 11/08/16 16:22 Urine Glucose (UA) 250 mg/dL (Normal) H 11/08/16 16:22 Ur Squamous Epith Cells Many per lpf (None-Few) H 11/08/16 16:22 Microalb/Creat Ratio 2883 (0-30) H 11/09/16 13:30 Protein/Creatinin Ratio 4.28 mg/mg (0-0.20) H 11/09/16 13:30 Urine Total Protein 77 mg/dL (1-14) H 11/09/16 13:30 Vancomycin Trough 29.7 mcg/mL (10-20) H* 11/10/16 18:54 - Microbiology Findings Microbiology Findings: Microbiology, Last 48 Hours 11/09/16 10:20 Sputum Culture - Final Sputum - Clinical Findings Intake & Output: Intake & Output 11/12/16 11/12/16 11/12/16 07:59 15:59 23:59 Intake Total 0 / 0 0 / 0 Output Total 1700 / 1700 450 / 450 0 / 0 Balance -1700 / -1700 -450 / -450 0 / 0 Weight 76.9 kg - Attending Attestation I examined this patient and my medical decision-making was reviewed with the MEAT PASSER/PA/Advanced Practice Nurse/Resident Physician. I agree with the documented findings, disposition and treatment plan as described except to the extent set forth below. Patient seen and examined. Labs, radiology, chart personally reviewed. Agree with resident's history and physical, assessment, plan with following comments: SEISMIC PLOTTER: Patient follows commands, Pulmonary: Acceptable oxygenation and ventilation. Patient is able to protect his airway. Continue BiPAP when necessary and at night due to history of apneas. Cardiovascular: stable GI: Nutrition per dietary and GI prophylaxis per routine Heme: DVT prophylaxis per routine. Mechanical prophylaxis ID: Continue antibiotics and plan to de-escalation Renal; urine out put and renal funtion reviewed Endorcine: blood glucose is monitored Lines: all lines checked and no evidence of infections Skin: skin care to prevent pressure ulcers per nursing routine care Patient was transferred to the floor
[2016-11-12] MEDS: Insulin LISPRO 300 UNITS/3 ML VIAL SQ SCH ×4 (08:28→21:37)
--- NOTE | 2016-11-12 09:05 | Nephrology Progress Note ---
Date of Encounter: 11/12/16 Time of Encounter: 09:05 - Assessment and Plan (1) Acute kidney injury superimposed on CKD Current Visit: Yes Status: Suspected Patient presented with nonoliguric HENRY with underlying chronic kidney disease. Only documentation we have shows SCr of 1.61 and GFR 45 as of 10/31/2016. Creatinine improving today 2.02 > 1.85 > 2.07 > 1.87 > 1.59 Urine shows proteinuria consistent with nephrotic kidney disease believed secondary to possible DM. Continue to monitor kidney function and UOP. No indication for acute dialysis at this time. Recommend renal protective strategy: renal dose medications and avoid nephrotoxic agents as possible. Recommend vanco dosing by blood levels. Nephrology will sign off. Thank you for allowing us to participate in the care of this patient. Please feel free to call with questions or concerns. Patient would benefit from outpatient follow up with a fire captain given concern for underlying chronic kidney disease. (2) Hyperkalemia Current Visit: Yes Status: Acute Patient admitted with potassium of 7.1. Received calcium gluconate, insulin/D5 , bicarbonate, and kayexalate. Potassium normal today at 3.8 Continue to monitor potassium and magnesium (3) Angioedema Current Visit: Yes Status: Resolved Management per primary team Qualifiers: Encounter type: subsequent encounter Qualified Code(s): T78.3XXD - Angioneurotic edema, subsequent encounter (4) CHF (congestive heart failure) Current Visit: Yes Status: Chronic Management per primary team. However, Patient does not appear to be fluid overloaded on exam so would consider backing off on diuresis. Qualifiers: Congestive heart failure type: unspecified congestive heart failure type Congestive heart failure chronicity: unspecified congestive heart failure chronicity Qualified Code(s): I50.9 - Heart failure, unspecified Subjective Principal diagnosis: Hyperkalemia, angioedema, acute on chronic hypercarbic respiratory failure Interval history: Mr Gregory Barron is 71yo male admitted with angioedema and respiratory distress. Nephrology consulted for hyperkalemia with potassium of 7.1 on admission and acute kidney injury. Patient successfully extubated yesterday. No acute events overnight. Afebrile , vital signs within normal limits. Patient is awake and alert, following commands. On exam he was requiring BiPAP. Lungs with bilateral rhonchi. Abdomen soft. No peripheral edema noted. Objective - Vital Signs Vital signs: Vital Signs Temp Pulse Resp BP Pulse Ox 11/12/16 07:41 97.6 F 11/12/16 06:00 63 9 177/90 96 11/12/16 05:02 97.4 F L 11/12/16 05:00 64 9 165/74 98 11/12/16 04:00 61 9 191/92 98 11/12/16 03:00 62 10 191/94 100 11/12/16 02:00 65 10 166/76 100 11/12/16 01:00 64 10 163/88 100 11/12/16 00:13 97.7 F 11/12/16 00:00 64 10 170/81 98 11/11/16 23:00 62 10 181/91 98 11/11/16 22:00 67 11 187/97 100 11/11/16 21:55 12 192/79 97 11/11/16 21:00 66 11 160/90 92 11/11/16 20:40 96.7 F L 11/11/16 20:00 65 12 182/93 93 11/11/16 19:00 66 12 166/73 94 11/11/16 18:00 61 12 178/73 96 11/11/16 17:00 65 12 170/57 96 11/11/16 16:08 10 98 11/11/16 16:05 14 98 11/11/16 16:00 98.3 F 68 10 193/86 100 11/11/16 15:00 62 12 182/83 98 11/11/16 14:00 64 10 163/67 97 11/11/16 13:00 64 8 171/74 99 11/11/16 12:57 73 10 144/52 95 11/11/16 12:00 73 10 144/52 95 11/11/16 11:40 98.4 F 11/11/16 11:12 9 91 11/11/16 11:00 62 8 136/52 92 11/11/16 10:53 62 11/11/16 10:49 61 12 139/58 95 11/11/16 10:04 12 92 11/11/16 10:00 60 12 142/60 99 11/11/16 09:27 98.3 F Intake and Output 11/11/16 11/12/16 11/12/16 23:59 07:59 15:59 Intake Total 100 / 100 Output Total 1700 / 1700 Balance 100 / 100 -1700 / -1700 Intake: IV Fluids 100 / 100 Maxipime 1,000 MG In 100 / 100 Dextrose 5% (Minibag+) 100 ML 100 ML @ 200 mls/ hr IVPB Q24H [facility] Rx#: [id number] Output: Catheter 1700 / 1700 Other: Weight 76.9 kg Blood Glucose* 223 91 Patient Weight 11/12/16 23:59 Weight 76.9 kg - General Appearance General appearance: Present: well-developed, well-nourished, appears started age EENT: Present: PERRL, mucous membranes moist Neck: Present: no JVD Respiratory: Present: rhonchi Cardiology: Present: no murmurs, no rub, no gallops, regular rate, regular rhythm Gastrointestinal: Present: no tenderness, no guarding Neurologic: Present: alert and oriented x3 Psychiatric: Present: cooperative - Lab 11/12/16 03:15 11/12/16 03:15 Most recent lab results ABG pH 7.35 pH Units (7.32-7.45) 11/11/16 06:15 ABG pCO2 72 mmHg (35-45) H* 11/11/16 06:15 ABG pO2 93 mmHg (85-104) 11/11/16 06:15 ABG HCO3 39.7 mEQ/L (21-27) H 11/11/16 06:15 ABG O2 Saturation 97 % (95-98) 11/11/16 06:15 Calcium 8.9 mg/dL (8.6-10.8) 11/12/16 03:15 Phosphorus 4.4 mg/dL (2.3-4.7) 11/09/16 05:15 Magnesium 2.0 mg/dL (1.6-2.6) 11/12/16 03:15 Urine Creatinine 18 mg/dL 11/09/16 13:30 Urine Total Protein 77 mg/dL (1-14) H 11/09/16 13:30 Consult Discharge Plan - Plan [facility]errals: [facility] [Primary Care Provider] -
[2016-11-12] MEDS: amLODIPine 5 MG TABLET PO SCH (09:23)
[2016-11-12] MEDS: Aspirin 81 MG TAB.CHEW PO SCH (09:23)
[2016-11-12] MEDS: Pantoprazole 40 MG VIAL IVPB SCH (09:23)
[2016-11-12] MEDS: Budesonide/Formoterol 160/4.5 MDI IH SCH ×2 (09:52→23:01)
[2016-11-12] MEDS ORDERED: Furosemide 20 MG/2 ML VIAL IVP ONE (10:10)
[2016-11-12] MEDS ORDERED: *HR* LORazepam 2 MG/ML VIAL IVP PRN (11:16)
[2016-11-12] MEDS ORDERED: Calcium Gluconate 1,000 MG in D5% in Water 100 ML IVPB PRN (11:16)
[2016-11-12] MEDS ORDERED: Dextrose Gel 15 GM PO PRN ×2 (11:16)
[2016-11-12] MEDS ORDERED: D5% in Water 1,000 ML IVC PRN (11:16)
[2016-11-12] MEDS ORDERED: *HR* Metoprolol 5 MG/5 ML VIAL IVP PRN (11:16)
[2016-11-12] MEDS ORDERED: *HR* Dextrose 50 % in Water (Syg) 50 ML SYRINGE IVP PRN (11:16)
[2016-11-12] MEDS ORDERED: Naloxone 0.4 MG/ML INJ IVP PRN (11:16)
[2016-11-12] MEDS ORDERED: hydrALAZINE 10 MG TABLET PO PRN (11:16)
--- NOTE | 2016-11-12 13:43 | ENT - Procedure Note ---
Date of procedure: 11/12/16 Pre-op diagnosis: Airway obstruction, history of tracheostomy, tracheal stenosis Procedure: Flexible laryngoscopy: Procedure was explained to the patient at the bedside verbal consent was obtained. Bilateral nares are sprayed with a 50-50 mixture of oxymetazoline and topical lidocaine. Time was given to allow anesthesia as well as decongestion of the nasal airway. Flexible laryngoscope was then advanced into the right naris. Nasal septum was severely deviated to the right. Scope was further advanced, nasopharynx was right, uvula rested on the tongue base, tongue base was normal without mass or lesion, epiglottis was normal, piriform sinuses were open without mass or obstruction. Supraglottic mucosa with moderate edema that was diffuse in nature but worse along the arytenoids and false cords and esophageal inlet. True vocal cords had normal mobility and good glottic opening without any obstruction. Good glottic opening with full AB duction of the vocal cords bilaterally. Could not visualize into the subglottis due to patient's tolerance of the scope. Scope was removed. Patient tolerated this procedure well. Overall assessment: Moderate supraglottic edema worse along the arytenoids and posterior cricoid area. No airway obstruction. Could not visualize subglottically to assess subglottic stenosis or tracheal stenosis. CPT: 70684 Laryngoscopy, flexible fiberoptic; diagnostic Anesthesia: local Surgeon: Monica Landa Estimated blood loss (cc): 0 Condition: stable
--- NOTE | 2016-11-12 16:18 | Event Note ---
Date of Encounter: 11/12/16 Time of Encounter: 10:00 I have examined the patient at the bedside in the ICU. He is in no acute distress. Awake and arousable, currently on BiPAP. Heart is regular with S1-S2 no murmurs. Lungs are clear. Bilateral lower extremities have 1+ pitting edema. Plan: We will transfer the patient to the floor. Discontinue Guido. Out of bed to chair. He completed cefepime for pneumonia. He appears to be edematous. His creatinine is trending down. I will give 1 dose of Lasix and will monitor creatinine trend.
--- NOTE | 2016-11-12 16:42 | Cardiology Progress Note ---
Date of Encounter: 11/13/16 Time of Encounter: 15:10 Assessment and Plan (1) Elevated troponin Current Visit: Yes Status: Acute Patient's troponin continues to trend downward. Patient's troponin is 0.86 yesterday currently 0.65. Patient's creatinine level is still elevated and recommendations from nephrology is to withhold any nephrotoxic medications to allow kidneys to heal. We will continue to monitor patient's troponins and condition and once patient's creatinine levels have dropped we will reassess patient for need for cardiac catheterization. No further interventions at this time. (2) CHF (congestive heart failure) Current Visit: Yes Status: Chronic Continue betablocker. No ACEi/ARB due to angioedema (unclear etiology) which has resolved and patient's current extubated but still has an HENRY. Please continue to monitor and diurese as needed. Follow-up with [facility] in the outpatient setting. Qualifiers: Congestive heart failure type: unspecified congestive heart failure type Congestive heart failure chronicity: unspecified congestive heart failure chronicity Qualified Code(s): I50.9 - Heart failure, unspecified Discussion w patient/family: The assessment and plan as outlined above was discussed with the patient and/or family members who expressed understanding and agreement. All questions were answered. Thank you for involving us in the care of your patient. Please call with any questions. Subjective Principal diagnosis: Hyperkalemia, angioedema, acute on chronic hypercarbic respiratory failure Interval history: Patient's 71-year-old male who is in ICU for respiratory arrest currently intubated but unsedated and alert. Patient was seen and examined at bedside this a.m. and is able to indicate with head nod that he understands questions during physical. Patient denies any current chest pain. He does admit to discomfort secondary to ET tube. Patient seen and examined at bedside this p.m. Patient has no complaints this time denies chest pain, shortness of breath. Patient states he remembers seen yesterday but other than that has no recollection of previous events Objective General: Conversant, No Apparent Distress HEENT: Atraumatic, Normocephaly, Mucus Membranes Moist Neck: No JVD, Normal carotid pulses Cardiac: Reg Rate and Rhythm, Normal S1 and S2, No Murmur Lungs: Normal Breath Sounds, No Wheeze, Rales, Rhonchi Neuro: Alert and responsive, No focal deficits noted Abdomen: Soft, Non-Tender Skin: No rashes noted on visualized skin Musculoskeletal: No Chest Wall Tenderness Extremities: No Clubbing, No Cyanosis, Other (Upper extremity edema bilaterally that appears to be improving from yesterday's exam) Results 11/13/16 06:59 11/13/16 06:59 Lab Results 11/12/16 11/12/16 11/12/16 03:15 03:15 14:30 WBC 6.3 Hgb 8.7 L Hct 28.3 L Plt Count 90 L Sodium 143 Potassium 3.9 Chloride 102 Carbon Dioxide 33 H BUN 54 H Creatinine 1.59 H Glucose 123 H Calcium 8.9 Magnesium 2.0 Troponin I 0.65 H* - VTE Documentation of Mechanical Device: Intermittent pneumatic compression device Consult Discharge Plan - Plan Referrals: [facility] [Outside]
[2016-11-12] MEDS ORDERED: Cefepime HCl 1,000 MG in D5% in Water (Mini-Bag+) 100 ML IVPB SCH (18:00)
[2016-11-13] MEDS: hydrALAZINE 25 MG TABLET PO SCH ×5 (00:49→23:41)
[2016-11-13] MEDS: Ipratropium/Albuterol Neb 3 ML IH SCH ×4 (04:12→23:14)
[2016-11-13 07:08] LABS: Basophils % 0.3 %; Eosinophils # 0.1 K/mcL (0.0-0.6); Eosinophils % 0.8 %; Hematocrit 27.9 % (37.5-50.1); Hemoglobin 8.6 g/dL (12.9-16.9); Immature Granulocytes % 1.5 % (0-4); Immature Platelets 7.4 % (1.1-6.1); Lymphocytes # 0.6 K/mcL (0.6-4.6); Lymphocytes % 8.9 %; Mean Corpuscular HGB Conc 30.8 g/dL (31.6-35.5); Mean Corpuscular Hemoglobin 30.6 pg (28.0-33.3); Mean Corpuscular Volume 99.3 fL (83.0-100.0); Mean Platelet Volume 12.4 fL (9.4-12.4); Monocytes # 0.6 K/mcL (0.0-1.3); Monocytes % 7.8 %; Neutrophils # 5.8 K/mcL (1.6-8.9); Nucleated Red Blood Cells 0.3 /100 WBC (0); Platelet Count 86 K/mcL (140-400); Red Blood Count 2.81 M/mcL (4.19-5.50); Red Cell Distribution Width 15.4 % (11.5-14.5); Segmented Neutrophils % 80.7 %
[2016-11-13 07:21] LABS: Calcium 8.8 mg/dL (8.6-10.8); Potassium 4.4 mEq/L (3.5-4.5)
[2016-11-13] MEDS: Insulin LISPRO 300 UNITS/3 ML VIAL SQ SCH ×4 (08:52→20:41)
[2016-11-13] MEDS: levETIRAcetam 250 MG TABLET PO SCH (08:55)
[2016-11-13] MEDS: Aspirin 81 MG TAB.CHEW PO SCH (08:56)
[2016-11-13] MEDS ORDERED: amLODIPine 5 MG TABLET PO SCH (09:00)
[2016-11-13] MEDS ORDERED: Pantoprazole 40 MG VIAL IVPB SCH (09:00)
[2016-11-13] MEDS ORDERED: levETIRAcetam 250 MG TABLET PO SCH (09:00)
--- NOTE | 2016-11-13 10:16 | Internal Med Progress Note ---
Date of Encounter: 11/13/16 Time of Encounter: 10:14 - Assessment and plan (1) Hyperkalemia Current Visit: Yes Status: Resolved Assessment and plan: Secondary to HENRY Potassium today has improved to 4.0 Continue to monitor (2) Angioedema Current Visit: Yes Status: Resolved Assessment and plan: Resolved Etiology unknown Continue to avoid ARB/ACEI Qualifiers: Encounter type: subsequent encounter Qualified Code(s): T78.3XXD - Angioneurotic edema, subsequent encounter (3) Hypercapnic respiratory failure, chronic Current Visit: Yes Status: Chronic Assessment and plan: BiPAP at night (4) SIRS (systemic inflammatory response syndrome) Current Visit: Yes Status: Resolved Assessment and plan: White count has improved Patient completed treatment for suspected pneumonia (5) Acute kidney injury superimposed on CKD Current Visit: Yes Status: Acute Assessment and plan: Cr slowly improving Nephrology following, signed off Not in IVF Continue to avoid nephrotoxins, renal protective strategy (6) Diabetes Current Visit: Yes Status: Chronic Assessment and plan: FS acceptable on sliding scale insulin Continue insulin FS ACHS ADA diet /Advanced choipped diet Qualifiers: Diabetes mellitus type: type 2 Diabetes mellitus complication status: with unspecified complications Diabetes mellitus long winder tender insulin use: with long winder tender use Qualified Code(s): E11.8 - Type 2 diabetes mellitus with unspecified complications; 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 Previously patient's LVEF of 35% Continue BB No ACEI/ARB Patient does not appear in fluid overload at this time Qualifiers: Congestive heart failure type: systolic Congestive heart failure chronicity : unspecified congestive heart failure chronicity Qualified Code(s): I50.20 - Unspecified systolic (congestive) heart failure (8) History of CVA (cerebrovascular accident) Current Visit: Yes Status: Chronic (9) History of traumatic brain injury Current Visit: Yes Status: Chronic Assessment and plan: With mild dementia Resident of [facility] Plan is to discharge there when medically stabilized (10) COPD (chronic obstructive pulmonary disease) Current Visit: Yes Status: Chronic Qualifiers: COPD type: unspecified COPD Qualified Code(s): J44.9 - Chronic obstructive pulmonary disease, unspecified (11) Elevated troponin Current Visit: Yes Status: Acute Assessment and plan: Peak troponin 3.6, now 0.65 Cardiology following No plans for cath at this time due to HENRY on CKD - Subjective Interval history: Seen and evaluated at bedside Admitted to ICU for angioedema, intubated/extubated, chronic hyperapneic respiratory failure with metabolic alkalosis, HENRY on CKD, Pneumonia (suspected s /p 5 days of treatment with Cefepime), DM, COPD Patient noted to have had urinary retention with >700cc of urine in his bladder , catheterized again overnight He has hx of TBI with dementia Hospital stay also complicated with elevated troponin, cardiology following for possible cath when kidney function improves Nephrology is following for HENRY on CKD he is seen at bedside Denies new complains, he is able to make a meaningful conversation most of the time - Constitutional Vitals: Temp Pulse Resp BP Pulse Ox 98.6 F 64 16 153/54 95 11/13/16 08:07 11/13/16 08:07 11/13/16 08:07 11/13/16 08:07 11/13/16 08:07 General appearance: Present: A&O X 2 - Head Head exam: Present: atraumatic, normocephalic - Eye Eye exam: Present: PERRL, conjuntiva pink, sclera anicteric Pupils: Present: PERRL - Neck Neck exam general surgery: Present: supple, trachea midline. Absent: lymphadenopathy - Respiratory Respiratory exam: Present: CTAB. Absent: accessory muscle use, rales, rhonchi, wheezes - Cardiovascular Cardiovascular exam: Present: RRR, +S1, +S2. Absent: diastolic murmur, gallop, rubs, systolic murmur - GI/Abdominal GI/Abdominal exam: Present: normal bowel sounds, soft, no peritoneal signs. Absent: distended, tenderness - Extremities Exam Extremities exam: Present: warm, radial pulses palpable and symetrical. Absent : calf tenderness, cyanotic, pedal edema - Neurological Exam Neurological exam: Present: alert, CN II-XII intact, oriented X3, no focal deficits. Absent: pronater drift, facial droop, speech deficit - Skin Skin exam: Present: dry, intact Internal Medicine: Result - Labs CBC & Chem 7: 11/13/16 06:59 11/13/16 06:59 Labs: Short CBC 11/13/16 Range/Units 06:59 WBC 7.2 (4.3-11.1) K/mcL Hgb 8.6 L (12.9-16.9) g/dL Hct 27.9 L (37.5-50.1) % Plt Count 86 L (140-400) K/mcL Neutrophils # 5.8 (1.6-8.9) K/mcL BMP 11/13/16 06:59 Sodium 147 H Potassium 4.4 Chloride 105 Carbon Dioxide 34 H BUN 45 H Creatinine 1.56 H Glucose 187 H Calcium 8.8 Cardiac Enzymes 11/12/16 Range/Units 14:30 Troponin I 0.65 H* (0-0.03) ng/mL - ABG Interpretation ABG results: ABG ABG pH 7.35 pH Units (7.32-7.45) 11/11/16 06:15 ABG pCO2 72 mmHg (35-45) H* 11/11/16 06:15 ABG pO2 93 mmHg (85-104) 11/11/16 06:15 ABG O2 Saturation 97 % (95-98) 11/11/16 06:15 PT/INR, D-dimer PT 11.2 Seconds (9.4-12.1) 11/08/16 12:28 - VTE Documentation of Mechanical Device: Intermittent pneumatic compression device Consult Discharge Plan - Plan Referrals: [facility] [Outside]
[2016-11-13] MEDS: Budesonide/Formoterol 160/4.5 MDI IH SCH ×2 (10:59→23:14)
--- NOTE | 2016-11-13 11:44 | Cardiology Progress Note ---
Date of Encounter: 11/13/16 Time of Encounter: 11:00 Assessment and Plan (1) NSTEMI (non-ST elevated myocardial infarction) Current Visit: Yes Status: Acute Patient presented to the hospital with respiratory failure secondary to angioedema, history of present illness and anemia with elevated troponin 3.6. Since treatment of other issues patient's troponin levels have trended downward and is currently 0.57. Patient has not complained of chest pain during the time under cardiology assessment. Patient states that he does not remember events prior to being extubated. Patient's been unable to be assessed with cardiac catheterization secondary to his elevated troponins and anemia. Patient however does show improvement on echocardiogram with increase EF of 35- 50%. Current plan is to continue with medical management, and once patient is discharged to follow up with cardiology and be reassessed for cardiac catheterization at that time. Plan for follow-up within 5-7 days if patient's condition is improved. Plan: Recommend phase I cardiac rehabilitation, social service manager consult as well. Patient has been brought up to speed on current events and states he understands and agrees to treatment and plan for medical management until he is well enough for cardiac catheterization. (2) Elevated troponin Current Visit: Yes Status: Acute 1310 hrs.: Patient's creatinine level continues to be elevated. Troponin continues to trend downward currently 0.57 down from 0.65. 1430 hrs.: Return to recheck patient. Patient states that he does not remember me from earlier visit today. Patient is oriented to person place and time. Patient does have history of dementia which could have stimulated patient's earlier conversation of discussion of time [place]. As patient seemed to be more understanding at this time we discussed current treatment plan for medical management for his acute kidney injury and anemia. We expressed the patient that we do not think it is appropriate time to do a heart catheterization secondary to AKA and anemia. Recommend that once his condition is stable she can be reevaluated in 5-7 days to see if patient will benefit from cardiac catheterization. Patient states that he lives alone in [place] assisted living. He states he has a son done in [place] we tried to make contact with but no answer with the phone number provided by the patient. Patient does agree with this current course of treatment. We also expressed to the patient that if anything changes between follow-up that we can be re- consulted to come and take a look and reevaluate his situation. Recommend cardiac rehabilitation consult for phase I and social service manager consult to help facilitate outpatient coordination for follow-up and rehabilitation. Patient states that he understands and agrees to treatment and plan. We will signoff patient unless something new occurs. (3) CHF (congestive heart failure) Current Visit: Yes Status: Chronic Continue betablocker. No ACEi/ARB due to angioedema (unclear etiology) which has resolved and patient's current extubated but still has an HENRY. Please continue to monitor and diurese as needed. Follow-up with [facility] in the outpatient setting. Qualifiers: Congestive heart failure type: systolic Congestive heart failure chronicity : unspecified congestive heart failure chronicity Qualified Code(s): I50.20 - Unspecified systolic (congestive) heart failure Discussion w patient/family: The assessment and plan as outlined above was discussed with the patient and/or family members who expressed understanding and agreement. All questions were answered. Thank you for involving us in the care of your patient. Please call with any questions. Subjective Principal diagnosis: Hyperkalemia, angioedema, acute on chronic hypercarbic respiratory failure Interval history: Patient seen and examined this a.m at bedside. He states he has no complaints at this time. Patient does not recall any adverse events overnight. Objective Vital Signs, Last 4 Hours Temp Pulse Resp BP Pulse Ox 11/13/16 11:15 12 64 11/13/16 08:07 98.6 F 64 16 153/54 95 General: Conversant, No Apparent Distress HEENT: Atraumatic, Normocephaly, Mucus Membranes Moist Neck: No JVD, Normal carotid pulses Cardiac: Reg Rate and Rhythm, Normal S1 and S2, No Murmur Lungs: Normal Breath Sounds, No Wheeze, Rales, Rhonchi Neuro: Alert and responsive, No focal deficits noted Abdomen: Soft, Non-Tender Skin: No rashes noted on visualized skin Musculoskeletal: No Chest Wall Tenderness Extremities: No Clubbing, No Cyanosis, No Edema, Normal Pulses Results 11/13/16 06:59 11/13/16 06:59 Lab Results 11/12/16 11/13/16 11/13/16 14:30 06:59 06:59 WBC 7.2 Hgb 8.6 L Hct 27.9 L Plt Count 86 L Sodium 147 H Potassium 4.4 Chloride 105 Carbon Dioxide 34 H BUN 45 H Creatinine 1.56 H Glucose 187 H Calcium 8.8 Troponin I 0.65 H* - VTE Documentation of Mechanical Device: Intermittent pneumatic compression device Consult Discharge Plan - Plan Referrals: [facility] [Outside]
--- NOTE | 2016-11-13 19:45 | Electrocardiograph Report ---
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
--- NOTE | 2016-11-13 19:45 | Electrocardiograph Report ---
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
[2016-11-13 21:19] LABS: Urine Collection Duration RANDOM hr; Urine Collection Volume RANDOM mL
[2016-11-14] MEDS: Ipratropium/Albuterol Neb 3 ML IH SCH ×4 (03:54→22:11)
[2016-11-14 05:12] LABS: Basophils % 0.2 %; Eosinophils # 0.1 K/mcL (0.0-0.6); Eosinophils % 1.3 %; Hemoglobin 8.1 g/dL (12.9-16.9); Immature Granulocytes % 1.5 % (0-4); Immature Platelets 6.3 % (1.1-6.1); Lymphocytes # 0.9 K/mcL (0.6-4.6); Lymphocytes % 14.4 %; Mean Corpuscular Hemoglobin 30.1 pg (28.0-33.3); Mean Corpuscular Volume 100.4 fL (83.0-100.0); Mean Platelet Volume 12.3 fL (9.4-12.4); Monocytes # 0.6 K/mcL (0.0-1.3); Monocytes % 9.8 %; Neutrophils # 4.4 K/mcL (1.6-8.9); Red Blood Count 2.69 M/mcL (4.19-5.50); Red Cell Distribution Width 15.5 % (11.5-14.5); Segmented Neutrophils % 72.8 %
[2016-11-14 05:15] LABS: Platelet Count 82 K/mcL (140-400)
[2016-11-14] MEDS: hydrALAZINE 25 MG TABLET PO SCH ×3 (05:24→17:40)
[2016-11-14 05:29] LABS: Calcium 8.4 mg/dL (8.6-10.8); Potassium 3.7 mEq/L (3.5-4.5)
[2016-11-14] MEDS: Aspirin 81 MG TAB.CHEW PO SCH (08:53)
[2016-11-14] MEDS: amLODIPine 5 MG TABLET PO SCH (08:55)
[2016-11-14] MEDS: levETIRAcetam 250 MG TABLET PO SCH (08:56)
[2016-11-14] MEDS: Insulin LISPRO 300 UNITS/3 ML VIAL SQ SCH ×4 (08:56→20:29)
[2016-11-14] MEDS: Budesonide/Formoterol 160/4.5 MDI IH SCH ×2 (10:30→22:11)
--- NOTE | 2016-11-14 13:32 | Physician Discharge Referral ---
[facility] Referral Info Transfer To: [place] Provider in Charge: Dr. Roberts Provider in Charge after Transfer: PCP Institutional Level of Care: Skilled - Diagnosis (1) Hyperkalemia Priority: Primary Status: Resolved (2) Angioedema Priority: Primary Status: Resolved (3) Hypercapnic respiratory failure, chronic Priority: Primary Status: Chronic (4) SIRS (systemic inflammatory response syndrome) Priority: Primary Status: Resolved (5) Acute kidney injury superimposed on CKD Priority: Primary Status: Acute (6) Diabetes Priority: Secondary Status: Chronic (7) CHF (congestive heart failure) Priority: Secondary Status: Chronic (8) History of CVA (cerebrovascular accident) Priority: Secondary Status: Chronic (9) History of traumatic brain injury Priority: Secondary Status: Chronic (10) COPD (chronic obstructive pulmonary disease) Priority: Secondary Status: Chronic (11) Elevated troponin Priority: Primary Status: Acute Prognosis: Fair Aware of Diagnosis: Patient Aware of Prognosis: Patient - Transfer Medications Home Medications: Alendronate Sodium [Fosamax] 70 mg PO QWEEK 11/08/16 [History] Budesonide/Formoterol 160/4.5 [Symbicort 160/4.5] 2 puff IH BIDR 11/08/16 [ History] Chlorhexidine Gluconate [Peridex] 15 ml MM BID 11/08/16 [History] Ergocalciferol (VITAMIN D2) [Vitamin D2] 50,000 unit PO TH 11/08/16 [History] Folic Acid 1 mg PO DAILY 11/08/16 [History] Guaifenesin [Mucus Relief] 400 mg PO BID 11/08/16 [History] Insulin Glargine [Lantus] 12 unit SQ 1200 11/08/16 [History] Insulin Human Regular [HumuLIN R] 2 - 15 unit SQ PRN PRN 11/08/16 [History] Ipratropium/Albuterol Neb [Duoneb] 3 ml IH Q2H PRN 11/08/16 [History] Ipratropium/Albuterol Neb [Duoneb] 3 ml IH Q4HR 11/08/16 [History] LevETIRAcetam [Keppra] 500 mg PO DAILY 11/08/16 [History] Ranitidine HCl [Zantac] 150 mg PO DAILY 11/08/16 [History] Theophylline Anhydrous [Jesus-24] 100 mg PO DAILY 11/08/16 [History] Aspirin 81 mg PO DAILY tab.chew 11/14/16 [Rx] Atorvastatin [Lipitor] 20 mg PO HS tablet 11/14/16 [Rx] Metoprolol [Lopressor] 25 mg PO BID tablet 11/14/16 [Rx] amLODIPine [Norvasc] 10 mg PO DAILY #0 tablet 11/14/16 [Rx] hydrALAZINE [HydrALAZINE] 50 mg PO Q6HR tablet 11/14/16 [Rx] levETIRAcetam [Keppra] 500 mg PO DAILY tablet 11/14/16 [Rx] Allergies/Adverse Reactions: Allergies carvedilol Allergy (Verified 11/08/16 11:50) See Comments unknown reaction, [facility]. - Respiratory Orders Oxygen / L per min (2L/minute to target O2 saturation of 90-92%) Smoking Cessation: Smoking cessation has been advised. For more information, call the [place] Tobacco Quit Line at 5-070-GZVS-NOW. - Advance Directives Code Status: Full Code - Rehabiliation Orders Rehab Potential: Fair - Diet Orders Mechanical Soft (Mechanically altered ground meat diet), Cardiac CERTIFICATION: I certify that the transfer of the above named patient to an Extended Care Facility is necessary for the continuing treatment of the diagnosis listed. The above information is true and accurate reflection of patient's current condition. Confidential - Redisclosure prohibited without a patient's written consent.
--- NOTE | 2016-11-14 13:34 | Discharge Summary ---
Date of Encounter: 11/14/16 Time of Encounter: 13:32 - Discharge Diagnosis (1) Hyperkalemia Priority: Primary Status: Resolved (2) Angioedema Priority: Primary Status: Resolved Qualifiers: Encounter type: subsequent encounter Qualified Code(s): T78.3XXD - Angioneurotic edema, subsequent encounter (3) Hypercapnic respiratory failure, chronic Priority: Secondary Status: Chronic (4) SIRS (systemic inflammatory response syndrome) Priority: Primary Status: Resolved (5) Acute kidney injury superimposed on CKD Priority: Primary Status: Acute (6) Diabetes Priority: Secondary Status: Chronic Qualifiers: Diabetes mellitus type: type 2 Diabetes mellitus complication status: with unspecified complications Diabetes mellitus jail insulin use: with [facility] use Qualified Code(s): E11.8 - Type 2 diabetes mellitus with unspecified complications; Z79.4 - FDC (current) use of insulin (7) CHF (congestive heart failure) Priority: Secondary Status: Chronic Qualifiers: Congestive heart failure type: systolic Congestive heart failure chronicity : unspecified congestive heart failure chronicity Qualified Code(s): I50.20 - Unspecified systolic (congestive) heart failure (8) History of CVA (cerebrovascular accident) Priority: Secondary Status: Chronic (9) History of traumatic brain injury Priority: Secondary Status: Chronic (10) COPD (chronic obstructive pulmonary disease) Priority: Secondary Status: Chronic Qualifiers: COPD type: unspecified COPD Qualified Code(s): J44.9 - Chronic obstructive pulmonary disease, unspecified (11) Elevated troponin Priority: Primary Status: Acute - Discharge Medications Home Medications: Alendronate Sodium [Fosamax] 70 mg PO QWEEK 11/08/16 [History] Budesonide/Formoterol 160/4.5 [Symbicort 160/4.5] 2 puff IH BIDR 11/08/16 [ History] Chlorhexidine Gluconate [Peridex] 15 ml MM BID 11/08/16 [History] Ergocalciferol (VITAMIN D2) [Vitamin D2] 50,000 unit PO TH 11/08/16 [History] Folic Acid 1 mg PO DAILY 11/08/16 [History] Guaifenesin [Mucus Relief] 400 mg PO BID 11/08/16 [History] Insulin Glargine [Lantus] 12 unit SQ 1200 11/08/16 [History] Insulin Human Regular [HumuLIN R] 2 - 15 unit SQ PRN PRN 11/08/16 [History] Ipratropium/Albuterol Neb [Duoneb] 3 ml IH Q2H PRN 11/08/16 [History] Ipratropium/Albuterol Neb [Duoneb] 3 ml IH Q4HR 11/08/16 [History] LevETIRAcetam [Keppra] 500 mg PO DAILY 11/08/16 [History] Ranitidine HCl [Zantac] 150 mg PO DAILY 11/08/16 [History] Theophylline Anhydrous [Jesus-24] 100 mg PO DAILY 11/08/16 [History] Aspirin 81 mg PO DAILY tab.chew 11/14/16 [Rx] Atorvastatin [Lipitor] 20 mg PO HS tablet 11/14/16 [Rx] Metoprolol [Lopressor] 25 mg PO BID tablet 11/14/16 [Rx] amLODIPine [Norvasc] 10 mg PO DAILY #0 tablet 11/14/16 [Rx] hydrALAZINE [HydrALAZINE] 50 mg PO Q6HR tablet 11/14/16 [Rx] levETIRAcetam [Keppra] 500 mg PO DAILY tablet 11/14/16 [Rx] Allergies/Adverse Reactions: Allergies carvedilol Allergy (Verified 11/08/16 11:50) See Comments unknown reaction, obtained from [facility] chart. Procedures/tests Complete & Pending: Procedures Performed prior 72 hours Category Date Time Status Retroperitoneal Ultrasound - Complete [US Exams 11/14/16 09:15 Completed retroperitoneal comp] [US] Stat EKG [ECG 12 lead ECG] [ECG] Stat Y 11/12/16 14:09 Completed EKG [ECG 12 lead ECG] [ECG] Stat Y 11/13/16 11:19 Completed Date of admission: 11/08/16 16:40 Primary care physician: PCP [facility] Consults: 11/12/16 14:04 Consult to Law Office Receptionist [CONS] Routine Reason for Consult: discharge planning; patient may be from [facility] 11/13/16 16:15 Consult to Speech Therapy [CONS] Routine Comment: Evaluate, develop and implement POC Reason for Consult: Dysphagia, choking on meals Call Completed: No Discharging clinician: Ki Roberts Anticipated date of discharge: 11/15/16 - Patient Status Disposition: Transfer SNF Condition: Fair Functional capacity at discharge: uses cane/walker Overall status at discharge: patient is progressing back to baseline - Discharge Instructions Follow Up With: [facility] [Outside] Additional Instructions: Ensure follow up with Urology for voiding trial Ensure follow up with Cardiology and nephrology - Diet and Activity Activity: resume usual activities as tolerated, wear oxygen at all times Diet: other (Mechanically altered, ground meat, honey thickened liquids) Interval History: See below Hospital course: Mr. Barron is a 71 year old male who was admitted as a transfer from the [facility] for acute respiratory failure On arrival to the ED, patient was on 15L via nonrebreather, and had received epinephrine and solumedrol via EMS Chart review reveals he presented with angioedema with swelling of the face and mouth, and was intubated in the OR by anesthesia due to impending airway compromise His ABG on admission revealed acute respiratory acidosis with PH 7.14 and PCO2 of 96. Patient also presented with hyperkalemia, HENRY with potassium of 7.1, and BUN/ creatinine of 82/2.05. His baseline renal function is said to be "chronic kidney disease but baseline was unknown". He also had leukocytosis and tachycardia, Troponin elevation up to 3.60 he has a PMH of Traumatic brain injury with dementia, he was a resident of [facility] at the [facility], he also has CHF, COPD, DM, GERD and he is an active smoker Patient was managed conservatively with IVF hydration, he did not require hemodialysis His Echocardiogram shows improvement of patient's LVEF which is currently 50%. Previously patient's LVEF of 35%. He has been started on BB and statins and was conservatively managed for his elevated troponin, Cardiology recommends follow up as outpatient, he did not have LHC due to Acute kidney injury. HIs angioedema resolved and he was successfully extubated and transferred to the floors His renal function continues to improve. Patient had an episode of acute urinary retention after discontinuation of his Guido catheter with ~700cc of urine in his bladder, he was recatheterized and it is recommended that he follows up with Urology for voiding trial. His renal Ultrasound shows non- obstructive calculi. Patient had 5 days of cefepime for a suspected HCAP/SIRS and was de-escalated when cultures returned negative His respiratory status has improved with BiPAP and O2. he had chronic hypoxic failure and is on O2 at the halfway, however, he qualified for a BIPAP for his chronic respiratory failure. He is clinically stable to be discharged to SNF When counselled about tobacco and alcohol use, patient states "I am going to smoke", and "I dont lie", he declined NRT Follow up with PCP of SNF, and Nephrology/Cardiology as out-patient - Time Spent with Patient Total time spent providing and/or coordinating discharge services: Greater than 30 minutes (50 minutes spent on chart review, patient encounter, medication reconciliation and prescription, documentation) - Constitutional Vitals: Temp Pulse Resp BP Pulse Ox 98.4 F 73 16 150/68 91 11/14/16 11:30 11/14/16 11:30 11/14/16 11:30 11/14/16 07:30 11/14/16 11:30 General appearance: Present: A&O X 3, pleasant, no acute distress - Head Head exam: Present: atraumatic, normocephalic - Eye Eye exam: Present: PERRL, conjuntiva pink, sclera anicteric Pupils: Present: PERRL - Neck Neck exam general surgery: Present: supple, trachea midline. Absent: lymphadenopathy - Respiratory Respiratory exam: Present: CTAB. Absent: accessory muscle use, rales, rhonchi, wheezes - Cardiovascular Cardiovascular exam: Present: RRR, +S1, +S2. Absent: diastolic murmur, gallop, rubs, systolic murmur - GI/Abdominal GI/Abdominal exam: Present: normal bowel sounds, soft, no peritoneal signs. Absent: distended, tenderness - Extremities Exam Extremities exam: Present: warm, radial pulses palpable and symetrical. Absent : calf tenderness, cyanotic, pedal edema Additional comments: Chronic venous stasis changes - Neurological Exam Neurological exam: Present: alert, CN II-XII intact, oriented X3, no focal deficits. Absent: pronater drift, facial droop, speech deficit - Skin Skin exam: Present: dry, intact - VTE Documentation of Mechanical Device: Venous foot pump, device
[2016-11-14 14:51] LABS: Immunoglobulin A 333 mg/dL (68-408); Immunoglobulin G 501 mg/dL (768-1632); Immunoglobulin M 69 mg/dL (35-263)
[2016-11-14 16:40] LABS: Alpha 2 Globulin (PEP) 0.85 g/dL (0.48-1.05); Beta Globulin (PEP) 0.71 g/dL (0.48-1.10)
[2016-11-15] MEDS: hydrALAZINE 25 MG TABLET PO SCH ×2 (00:14→05:12)
[2016-11-15] MEDS: Ipratropium/Albuterol Neb 3 ML IH SCH ×2 (04:27→10:43)
[2016-11-15 06:53] LABS: Basophils % 0.1 %; Hemoglobin 7.6 g/dL (12.9-16.9)
[2016-11-15 06:55] LABS: Eosinophils # 0.1 K/mcL (0.0-0.6); Eosinophils % 0.8 %; Hematocrit 24.4 % (37.5-50.1); Immature Granulocytes % 0.7 % (0-4); Immature Platelets 5.1 % (1.1-6.1); Lymphocytes % 9.6 %; Mean Corpuscular HGB Conc 31.1 g/dL (31.6-35.5); Mean Corpuscular Hemoglobin 30.6 pg (28.0-33.3); Mean Corpuscular Volume 98.4 fL (83.0-100.0); Mean Platelet Volume 12.3 fL (9.4-12.4); Monocytes # 0.7 K/mcL (0.0-1.3); Monocytes % 6.5 %; Neutrophils # 8.6 K/mcL (1.6-8.9); Red Blood Count 2.48 M/mcL (4.19-5.50); Red Cell Distribution Width 15.4 % (11.5-14.5); Segmented Neutrophils % 82.3 %
[2016-11-15 07:03] LABS: Platelet Count 82 K/mcL (140-400)
[2016-11-15 07:11] VITALS: BP 118/68
[2016-11-15 07:13] LABS: Calcium 8.2 mg/dL (8.6-10.8); Potassium 3.9 mEq/L (3.5-4.5)
[2016-11-15 07:29] LABS: IFE Reflexed IFE Done
[2016-11-15] MEDS: Insulin LISPRO 300 UNITS/3 ML VIAL SQ SCH (07:36)
[2016-11-15] MEDS: levETIRAcetam 250 MG TABLET PO SCH (08:47)
[2016-11-15] MEDS: Aspirin 81 MG TAB.CHEW PO SCH (08:47)
[2016-11-15] MEDS: amLODIPine 5 MG TABLET PO SCH (08:47)
[2016-11-15] MEDS: Budesonide/Formoterol 160/4.5 MDI IH SCH (10:42)
== END 2016-11-15 11:32 | DRG 915 ==
LOC: EMEROO 11:39 → ICNU 11:39 → 3ANU 11-12 10:55
PROVIDERS: ADMIT Internal Medicine Hospice and Palliative Medicine; ATTEND Internal Medicine